=== PATIENT | female | born 1990 | race Caucasian/White ===

== ENCOUNTER 2019-11-01 10:37 | Outpatient (RCR) | payer OTHER, SELFPAY ==
[2019-11-02 19:55] LABS: CMV IgG Antibody <0.60 U/mL (<0.60)
[2019-11-03] MEDS: RHO(D) IMMUNE GLOBULIN 300 MCG SYRINGE IM (15:02)
[2019-11-03 17:15] LABS: Toxoplasma IgG Antibody <7.20 IU/mL (<7.20)
[2019-11-03 17:22] LABS: Toxoplasma IgM Antibody <8.00 AU/mL (<8.00)
[2019-11-04 16:54] LABS: CMV IgM Antibody <30.00 AU/mL (<30.00)
== END 2019-11-03 10:38 | disposition home or self-care (01) ==
LOC: ANHLAB 10:37
PROVIDERS: Visit Provider Obstetrics & Gynecology Obstetrics
DX: Z29.13 Encounter for prophylactic Rho(D) immune globulin (principal); O36.5930 Maternal care for other known or suspected poor fetal growth, third trimester, not applicable or unspecified; Z3A.00 Weeks of gestation of pregnancy not specified
CPT/HCPCS: 36415; 85461; 86644; 86645; 86777; 86850; 86900; 86901; 90384; 96372; J2790

== ENCOUNTER 2022-09-05 15:17 | Emergency (ER) | payer OTHER, SELFPAY ==
[2022-09-05 15:40] VITALS: BP 100/75; PULSE 87; RESP 19; TEMP 36.7; O2SAT 100
--- NOTE | 2022-09-05 15:59 | PC.NURSE ---
pt states she began having pain in both of the arches of her foot and some heel swelling. seen at [place] and dx with plantar fascitis. now noting pain, swelling, itching and rash to left hand. states meds from [place] are not helping and feet pain continues
--- NOTE | 2022-09-05 16:18 | ED.EXTPRO ---
HPI - Extremity Problem General Chief complaint: Extremity Problem,Nontraumatic Stated complaint: Bilateral Foot Pain and left hand itching and swel Time Seen by Provider: 09/05/22 15:57 Source: patient Mode of arrival: ambulatory Limitations: no limitations History of Present Illness HPI Narrative: This is a 32 year old female that presents to the ER for bilateral heel pain. Ongoing over the last couple of days. She was seen at [facility] and diagnosed with plantar fasciitis. Reports today she started to note some discomfort in her hands as well as a rash on her hands. Reports the pain is burning in nature. Denies fever, sore throat, or arthralgias. Related Data Home Medications Medication Instructions Recorded Confirmed No Home Medications 09/05/22 09/05/22 Allergies Allergy/AdvReac Type Severity Reaction Status Date / Time amoxicillin Allergy Swelling Verified 09/05/22 15:56 of Lip/Tongue/Throat Review of Systems Review of Systems: CONSTITUTIONAL: Denies fever ENT: Denies rhinorrhea, congestion, sore throat SKIN: Reports rash and itching. MUSCULOSKELETAL: Denies joint pain, or myalgia. NEUROLOGIC: Denies numbness, or weakness. All systems reviewed & are unremarkable except as noted in HPI and below PMFSH Past Medical History Medical History (Updated 09/05/22 @ 18:55 by Inna Reno PA-C) No active medical problems Social History Social History (Updated 09/05/22 @ 18:29 by Inna Reno PA-C) Substance use: never Exam Narrative: GENERAL: Well-appearing, well-nourished, and in no acute distress. HEAD: Normocephalic, atraumatic. EYES: EOMI. ENT: Nares clear, no rhinorrhea or epistaxis. Mucous membranes moist. Oropharynx without tonsillar hypertrophy exudate or other lesions. NECK: Supple. No adenopathy or masses. CHEST: Clear to auscultation. No respiratory distress. No wheezes rales or rhonchi HEART: Regular rate and rhythm. No murmur heard. Normal peripheral pulses. EXTREMITIES: Normal range of motion. No edema, erythema. Normal DP pulses. Normal sensation SKIN: Warm, dry. Macular rash present on the palmar aspect of the hands NEURO: No focal deficits. Alert and oriented x3. PSYCH: Normal mood and affect Course Vital Signs Vital signs: Vital Signs Temperature 98.1 F 02/25/23 15:40 Pulse Rate 87 09/05/22 15:40 Respiratory Rate 19 09/05/22 15:40 Blood Pressure 100/75 09/05/22 15:40 Pulse Oximetry 100 09/05/22 15:40 Oxygen Delivery Room Air 09/05/22 15:40 Temperature 98.1 F 09/05/22 15:40 Pulse Rate 87 09/05/22 15:40 Respiratory Rate 19 09/05/22 15:40 Blood Pressure 100/75 09/05/22 15:40 Pulse Oximetry 100 09/05/22 15:40 Oxygen Delivery Room Air 09/05/22 15:40 MDM - Extremity (Nontraumatic) MDM Narrative Medical decision making narrative: Patient presents to the ER for a rash present on her palms that she noted today. Reports the area is painful, burning and itching. She also reports pain and burning in her heels bilaterally. No rash noted on the feet. No recent injuries. Patient is neurologically intact. She is afebrile and nontoxic appearing. CBC shows leukocytosis to 13. Patient did recently finish a steroid. Inflammatory markers are not elevated. Metabolic panel is without acute findings. Monoscreen is negative. Patient denies any concerns for STDs. She was updated on workup. Instructed on use of antihistamines for itching. She is to follow up with her PCP. She was given warnings to return to the ER. Instructed to follow up with Dermatology if rash persists Differential Diagnosis Differential diagnosis: Likely cellulitis and other (contact dermatitis, hand foot and mouth disease, syphilis) Lab Data Attestation: I reviewed the patient's lab results. 09/05/22 16:28 09/05/22 16:28 Labs: Lab Results 09/05/22 09/05/22 09/05/22 Range/Units 16:28 16:28 16:28 WBC 13.0 H (4.5-10.0) K/mm3 R
[2022-09-05 16:34] LABS: Basophils Absolute Auto 0.1 K/mm3 (0.0-0.1); Basophils Percent Auto 0.6 % (0.2-1.2); Eosinophils Absolute Auto 0.2 K/mm3 (0-0.3); Eosinophils Percent Auto 1.4 % (0-4.4); Hematocrit 43.7 % (37.0-47.0); Immature Granulocyte Absolute 0.09 K/mm3 (0.00-0.031); Immature Granulocyte Percent A 0.7 % (0-0.5); Lymphocytes Absolute Auto 3.48 K/mm3 (0.9-3.2); Lymphocytes Percent Auto 26.8 % (18.3-44.2); Mean Corpuscular Hemoglobin 27.8 pg (26-34); Mean Corpuscular Volume 86.7 fl (80-100); Mean Platelet Volume 9.5 fl (7.4-10.4); Monocytes Percent Auto 7.8 % (2.6-8.5); Neutrophils Absolute Auto 8.2 K/mm3 (1.3-6.7); Neutrophils Percent Auto 62.7 % (45.5-73.1); Platelet Count Result 375 k/mm3 (150-375); Red Blood Count 5.04 M/mm3 (4.2-5.4); Red Cell Distribution Width 14.8 % (11.5-14.5)
[2022-09-05 16:44] LABS: Prothrombin Time 13.1 Seconds (11.1-14.7)
[2022-09-05 16:45] LABS: Partial Thromboplastin Time 29.3 SECONDS (22.3-36.8)
[2022-09-05 16:47] LABS: Alanine Aminotransferase 22 U/L (6-35); Albumin Level 4.6 g/dL (3.5-5.1); Alkaline Phosphatase 91 U/L (38-126); Anion Gap 2 mmol/L (8-16); Aspartate Amino Transferase 24 U/L (14-36); Bilirubin,Total 0.6 mg/dL (0.2-1.3); Blood Urea Nitrogen 13 mg/dL (7-17); Calcium 9.1 mg/dL (8.4-10.2); Carbon Dioxide 30 mmol/L (22-30); Chloride 101 mmol/L (98-107); Estimated Glomerular Filt Rate > 60; Glucose 84 mg/dL (65-110); Potassium 4.4 mmol/L (3.4-5.0); Sodium 133 mmol/L (137-145)
[2022-09-05 17:41] LABS: Erythrocyte Sedimentation Rate 9 mm/hr (0-20)
[2022-09-05 18:22] LABS: Monoscreen Negative (Negative); Positive Monotest Control Positive (Positive)
[2022-09-05 18:23] LABS: Negative Monotest Control Negative (Negative)
== END 2022-09-05 19:03 | disposition home or self-care (01) ==
PROVIDERS: Emergency Provider Physician Assistant; PCP Physician Assistant
DX: R21 Rash and other nonspecific skin eruption (principal)
CPT/HCPCS: 36415; 80053; 85025; 85610; 85652; 85730; 86140; 86308; 99283

== ENCOUNTER 2024-11-21 19:20 | Emergency (ER) | payer OTHER, SELFPAY ==
--- NOTE | ~2024-11-21 | US_ITS ---
EXAMINATION: US OB <=14 wk fetus w TV INDICATION: 6 weeks, lower abd pain, RLQ TECHNIQUE: Sonography of the pelvis was performed by transabdominal and transvaginal techniques. COMPARISON: None. RESULT: Uterus: 9.4 x 7.4 x 9.5 cm. Anteverted. Homogenous myometrium. Intrauterine gestational sac: Single present. 0.4 cm . Embryo: Single present. [place] rump length: 0.45 cm, corresponding gestational age 6 weeks, 1 days. Gestational heart rate: present 106 bpm. Subgestational hematoma: Absent . Right ovary: 3.5 x 1.1 x 1.8 cm. Vascular flow is present. No adnexal mass. Left ovary: 4.0 x 1.7 x 2.5 cm. Vascular flow is present. No adnexal mass. Pelvis free fluid: None. IMPRESSION: Single, live intrauterine gestation. Borderline bradycardia of 106 bpm. Recommend close clinical and sonographic follow-up. Estimated Gestational Age: 6 weeks, 1 days by crown rump length. DANIEL by ultrasound 07/16/2025. Reviewed, dictated and finalized at location K. IMPRESSION: Single, live intrauterine gestation. Borderline bradycardia of 106 bpm. Recommend close clinical and sonograph ic follow-up. Estimated Gestational Age: 6 weeks, 1 days by crown rump length. DANIEL by ultras ound 07/16/2025.
[2024-11-21 19:23] VITALS: BP 124/68; PULSE 75; RESP 14; TEMP 36.7; O2SAT 100
--- OUTSIDE RECORDS SUMMARY | 2024-11-21 19:23 | XMS_ITS | Data Portability ---
Author Organization [facility], [place] Address [address] [place] [address] Care Team Providers Care Histology Supervisor Name Role Phone ISABELLA ARAYA Primary Care Provider Assessment Encounter Date Assessment Date Assessment LastModified by Organization Details LastModified Time 08/24/2023 08/24/2023 Annual gynecological exam performed. Patient will come back in a year unless there are new symptoms. Not available 08/24/2023 17:19:21 Plan of Treatment Reminders Order Date Submit Date Provider Last Modified By Organization Details Last Modified Time Details Appointments U/S OB SNEAK PEAK 2024 01:00P M ULTRASOUND Not available Not available Not available OB SCREEN 2024 01:30P M Mitzi Gary CNM Not available Not available Not available Lab None recorde d. Referral None recorde d. Procedures None recorde d. Surgeries None recorde d. Imaging None recorde d. Medication Orders None recorde d. Patient TargetsNo targets recorded. Patient InstructionsNo instructions recorded. Reason for Referral None Reported. Results Created Date Observation Date Name Description Value Unit Range Abnormal Flag Note LastModifiedBy Organization Detail LastModifiedTime 08/24/19 24 08/24/2023 IMAGE GUIDE D PAP AND HPV REGAR DLESS image guided Pap, HPV regardless of Pap result SEE RESULT S BELOW CASE REPOR T: Cytol ogy Gynec ologi cesar Repor t Case: [id number] Autho maggie brantley Provi lissette: Yves Salazar Colle cted: 08/24 0820 DEBT AND BUDGET COUNSELOR Order ing Locat ion: [place] [facility] Recei cindi: 08/26 0108 First Scree n: Chapin Preciado, CT Speci men: Scree july Pap - Image d, Cervi x STATE MENT OF ADEQU ACY: Satis facto ry for evalu ation Trans forma tion zone compo nent prese nt FINAL DIAGN OSIS: Negat cameron for Intra epith elial Lesio n or Kathy marcum (NIL) . Elect lora morgan gabriella d by Chapin Preciado, CT on 2023 at 8:51 AM ----- ----- ----- ----- ----- ----- ----- ----- ----- ----- ----- ----- ----- ----- ----- ----- ----- ---- HPV RESUL TS: HPV mRNA E6/E7 : No HPV mRNA Detec sharan NOTE: This high risk HPV mRNA assay detec ts fourt een high- risk HPV types (16, 18, 31, 33, 35, 39, 45, 51, 52, 56, 58, 59, 66, 68) witho ut diffe renti ation . COMME NT: This speci men was revie wed by a Cytot echno logis t and/o r Patho logis t (as indic ated in this repor t) after evalu ation using the Thinp rep Imagi ng Syste m. CLINI CESAR INFOR MATIO N: Menst rual Statu s: LMP (if appli cable ): Clini cesar Histo ry/Pr eviou s Pap: Type of Neopl yovany (if appli cable ): Signi fican t Clini cesar Findi ngs: Other Histo ry: Hormo marlys (if appli cable ): PAP EDUCA BRIAN L NOTE: The Pap Test is a scree july test with an inher ent false negat cameron rate. Liqui d-bas ed sampl ing may decre ase, but will not elimi juan, false negat cameron resul ts. A negat cameron resul t does not precl ude the prese nce and/o r devel opmen t of disea se, since the prese nce of abnor mal cells in the sampl e depen ds on the locat ion of the lesio n and sampl ing techn ique. Isaiah nued regul ar scree july is the best metho d of cance r preve ntion . If repor sharan cytol ogic findi ng do not corre late with physi cesar and/o r histo rical findi ngs, furth er inves tigat ion is recom shawna d, as clini lidya cuellar nted. Not Available [facility] (Lab) [address], [place], [address], 08/31/2023 09:54:20 Result Notes None recorded. Medical Equipment None Reported. Allergies Allergen ID Allergen Name Allergen Category Reaction Reaction Severity Criticality Documentation Date Start Date Code Code System Note Provider Name and Address Organization Details Recorded Time 13983 amoxicill in medicatio n anaphylax is Not available high 08/24/2023 723 RxNorm Mallorie castillo, [facility]- [address], [place], [address] [place] [address], [facility] 4 17:45:51 Medications Name Sig Start Date Stop Date Status Note LastModified by Organization Details LastModified Time methocarbam ol 500 mg tablet TAKE 2 TABLETS BY MOUTH FOUR TIMES DAILY active Not Available Not Available No t Available ketoconazol e 2 % shampoo APPLY TO THE AFFECTED AREAS LATHER LEAVE IN PLACE FOR 5 MINUTES THEN RINSE BY TOPICAL ROUTE X 3 DAYS active Not Available Not Available No t Available clindamycin HCl 300 mg capsule TAKE 1 CAPSULE BY MOUTH THREE TIMES DAILY active Not Available Not Available No t Available ibuprofen 800 mg tablet Take 1 tablet 3 times a day by oral route. active Not Available Not Available No t Available methylpredn isolone 4 mg tablets in a dose pack FOLLOW PACKAGE DIRECTION S active Not Available Not Available No t Available Annovera 0.15 mg-0.013 mg/24 hr vaginal ring 08/24 completed Not Available Not Available Not Available Vitals Date Recorded Body height Body mass index (BMI) Body weight Systolic blood pressure Diastolic blood pressure Provider Name and Address Organization Details Last Updated DateTime 08/24/2023 170.18 cm 22.6 kg/m2 03776.3 g 105 mm[Hg] 70 mm[Hg] Nicolasa Kike [facility] 17:35:51 Social History Question Answer Notes LastModified by Organizat ion Details LastModified Time Tobacco Smoking Status Current Every Day Smoker Nicolasa Stokes null, [facility] 08/24/2023 17:27:19 Are You Blind Or Do You Have Difficulty Seeing? No Information n ot available 08/24/2023 In The 14 Days Before Symptom Onset, Have You Had Close Contact With A Laboratory-confirm ed COVID-19 While That Case Was Ill? No Information n ot available 08/24/2023 In The 14 Days Before Symptom Onset, Have You Had Close Contact With A Person Who Is Under Investigation For COVID-19 While That Person Was Ill? No Information not available 08/24/2023 Have You Been To An Area Known To Be High Risk For COVID-19? No Information not available 08/24/2023 Are You Deaf Or Do You Have Serious Difficulty Hearing? No Information not available 08/24/2023 What Type Of Diet Are You Following? REGULAR Information n ot available 08/24/2023 What Is The Highest Grade Or Level Of School You Have Completed Or The Highest Degree You Have Received? [id number] Information not available 08/24/2023 Are There Any Guns Present In Your Home? No Information not available 08/24/2023 Do You Use Protection During Sex? No Information not available 08/24/2023 Do You Use Your Seat Belt Or Car Seat Routinely? Yes Information not available 08/24/2023 Are You Sexually Active? Yes Information not available 08/24/2023 Do You Have Smoke And Carbon Monoxide Detectors In Your Home? Yes Information not available 08/24/2023 How Much Tobacco Do You Smoke? 0.5 PPD Information not available 08/24/2023 Do You Use Sunscreen Routinely? Yes Information not available 08/24/2023 Sex: Unknown Functional Status Question Answer Note LastModified by Organizat ion Details LastModified Time Do you use any illicit or recreational drugs? No Information not available 08/24/2023 What is your level of alcohol consumption? None Information not available 08/24/2023 Are you currently employed? No Information not available 08/24/2023 Do you have difficulty walking or climbing stairs? No Information not available 08/24/2023 Are you able to walk? YESWOREST Information not available 08/24/2023 Are you able to care for yourself? Yes Information n ot available 08/24/2023 Do you have difficulty dressing or bathing? No Information not available 08/24/2023 What is your exercise level? None Information not available 08/24/2023 Mental Status Question Answer Note LastModified by Organization D etails LastModified Time Do you feel stressed (tense, restless, nervous, or anxious, or unable to sleep at night)? [id number] Information not available 08/24/2023 Family History Relationship Description Onset Age of this Age Resolved Age Notes LastModified by Organization Details LastModified Time Mother Anemia Not available 17:23:41 Mother Diabetes mellitus Not available 2023 17:24:19 Sister Anemia Not available 17:23:41 Sister Hypercholest erolemia Not available 2023 17:24:31 Sister Polycystic ovary syndrome Not available 2023 17:25:25 Paternal Grandmother Malignant tumor of breast Not available 2023 17:23:55 Father Diabetes mellitus Not available 2023 17:24:19 Father Hypertensive disorder Not available 2023 17:24:52 Paternal Grandfather Diabetes mellitus Not available 2023 17:24:19 Medical History Condition Response Allergies (Food, seasonal, environmental ) N Other N Drug/Latex Allergies/Reactions N Blood Transfusion N Breast Cancer N Dermatologic Disorders N Lung Disease N Defects or Inherited Disease N Breast Problem N Gestational Diabetes N Hematologic disorders N Anesthesia Complications N History of STI N Deep Vein Thrombosis N Polycystic ovary syndrome Y Anxiety Disorder N Autoimmune disease N Arthritis N Polyps N Infertility Y Acid Reflux (GERD) N History of abnormal pap N Cancer N Varicosities N Stroke N Neurologic/Epilepsy N Endometriosis N High Cholesterol Y Fibromyalgia N Headaches N Kidney Disease N Heart Problems N Thyroid Problems N Kidney or Bladder Problems N GI Problems N Eating Disorder N Anemia Y Art (IVF or FET) N Psychiatric Illness N Ovarian Cancer N Diabetes N Pulmonary (TB, Asthma) N Hepatitis/Liver Disease N No Past Medical History N Eczema N Urinary Tract Infection N Abuse/Domestic Violence N Asthma N Trauma/Violence N Depression/ depression N Heart Disease N Pre-Eclampsia N Hypertension N Osteoporosis N Thrombophilias N Gynecological History Statement/Question Response Abnormal Pap N Flow Heavy Date of LMP 07/27/2023 On BCP's at Conception? N Was last menstrual period normal Y STIs/STDs N HPV Vaccine Y Duration of Flow (days) 7 Current Control Method None Age at First Child 26 Are cycles usually normal Y Frequency of Cycle (Q days) 27 Sexually Active? Y Menses Monthly Y Age of first menstrual cycle 12 Date of Last Pap Smear Sexual Problems? N LMP Definite Obstetrics History GPAL:G 2 P 0 0 0 2 Type Value Living 2 Total 2 Past Encounters Encounter ID Performer Location Encounter Start Date Encounter Closed Date Diagnosis/Indication Diagnosis SNOMED-CT Code Diagnosis ICD10 Code Diagnosis Note [id number] Mallorie Ramos , [facility] [address] [address] 08/24/2023 16:43:08 08/24/2023 18:22:45 Gynecologic examination 08672298 Z01.419 Take Calcium with Vitamin D 1200mg daily if not receiving in daily diet. It is strongly advised to have an annual flu shot and up can obtain at most pharmacies . If you have not had a TDap shot in the last 10 years you should obtain one as well. Discussed with patient & provided with informatio n regarding Gardisil vaccine to prevent the 4 strains for HPV that cause cervical cancer if under age 26. Encourage safe sexual practices, to use condoms and limit partners if not already in a monogamous relationsh ip. Do monthly self breast exams. Have mammogram yearly or every other year depending on family history. BRCA testing is now available for patients with strong genetic history of female cancer. If interested contact the office. Engage in daily exercise of low impact aerobic exercise 45-60 minutes 4-5 times weekly. Avoid tobacco and illicit drugs as well as using moderation with alcohol intake less than 1-2 8 oz beverages daily. This lifestyle behavior pattern will lead to less health conditions and longer life span. If BMI greater than 25 weight watchers or dietary consult advised. Patient received above instructio ns, and questions have been answered. If you have any questions please call or respond to this email. Patient was made aware of the patient portal and may obtain a paper copy of today's plan if desired. Pap/hpv opts to sent STD Screen declined Genetic Screen discussed Colon Screen na Dexa Screen na Routine Labs PCP Menorrhagia [id number] N9 2.0 Discussed all control options and pt would like mirena IUD. I have discussed in detail all risks and benefits including risk of infection and perforatio n. She understand s she will need to contact office with next menses or may abstain, complete serum HCG day before placement, if neg can have IUD placed next day. Aware of need to verify with insurance device coverage. Literature given. All questions answered to patient satisfacti on. Discussed Endometria l ablation-r isks/benef its and possible side effects including getting it done earlier than 10yrs from Menopause. She would like to consider all these options.Sh e has failed BCP/Nuvari ng/Annover a/Patch/Do es not want nexplanon or Depo.Never trial'd LystedaHx of infertilit y and has 2 childrenNo t planning on more childrenHx of anemia but only needing supplement s now not transfusio ns; feels it's well managed. Will let us what options she wants to pursue.IF chooses to hear more about ablation will need MD consult. Health Concerns Section Related Observation LastModified by Organization Detai ls LastModified Time None Recorded Concern Status LastModified by Organization Details LastModified Time None Recorded Advance Directives Directive None Recorded Payers Encounter Date Sequence Insurance Name Policy Number Policy Hicks Covered Member ID Hicks Member ID Guarantor Name 08/24/2023 1 [facility] (MEDICAID HMO) [id number] Laurel Will [id number] Laurel Will Notes Date Note Type Note Provider Name and Address Organization Details Recorded Time 08/24/2023 text/html Annual GYNReport ed bypatient.Menstrua l cycle:Menorrhagia Urinary symptoms:No hematuria; No incontinence Vulva:No genital lesion Vagina:Normal vaginal discharge Breast:No breast pain; No breast lump; No nipple discharge Current Contraception:Dexter h control not practiced (Hx of infertility) Sexual complaints:No sexual complaints; No pain during intercourse; Normal libido Menopausal Symptoms:No menopausal symptoms; Normal vaginal lubrication Psychological symptoms:No depression; No anxiety; No PMDD Preventive measures:Encourage self breast examination; Encourage regular exercise; Encourage no tobacco use; Encourage regular mammograms starting age 40; Followed with yearly pap smears Mallorie Ramos [facility]- [address], [place], [address], [facility] 08/24/2023 18:20:15 OBGyn Episode Ob Episode Information Episode Created Date Number of Fetuses Patient Bloodtype Patient rh Status Prepregnancy Weight lbs Domestic Partner Domestic Partner Phone Father Name Publicity Director Status 08/24/19 24 1 CLOSED Fetus Data First Name Last Name Admitted to NICU Weight (g) Sex Living Outcome Pediatric Complications Fetus ID Race Codes Race Delivery Type [phone] Full Term [id number] Vaginal Delivery Rufino Calculation Initial Rufino Date Initial Exam Date Initial Exam Provider Initial Ultrasound Date Last Menstrual Period Date Ultra Sound Weeks Gestation 0 Eighteen To Twenty Week Rufino Update Ultra Sound Date Fundal Height At Umbil Quickening Date Ultra Sound Latest Weeks Gestation Final Rufino Confirmed By Final Rufino Confirmed Date Final Rufino Date Ultra Sound Latest Days Gestation 0 0 Menstrual History Last Menstrual Date Menses Monthly On Bcp Conception Prior Menses Frequency Hcg Plus Date Menarche Onset Age Delivery Information Delivery Date Delivery Type Labor Anesthesia Weeks Gestation Incision Type Labor Labor Length Hrs Delivered By Post Complications Tubal Sterilization Discharge Date Comments 0 Discharge Information Feeding Method Contraceptive Method Maternal HG B and HCT Levels Ob Episode Information Episode Created Date Number of Fetuses Patient Bloodtype Patient rh Status Prepregnancy Weight lbs Domestic Partner Domestic Partner Phone Father Name Publicity Director Status 08/24/19 24 1 CLOSED Fetus Data First Name Last Name Admitted to NICU Weight (g) Sex Living Outcome Pediatric Complications Fetus ID Race Codes Race Delivery Type Full Term [id number] Vaginal Delivery Rufino Calculation Initial Rufino Date Initial Exam Date Initial Exam Provider Initial Ultrasound Date Last Menstrual Period Date Ultra Sound Weeks Gestation 0 Eighteen To Twenty Week Rufino Update Ultra Sound Date Fundal Height At Umbil Quickening Date Ultra Sound Latest Weeks Gestation Final Rufino Confirmed By Final Rufino Confirmed Date Final Rufino Date Ultra Sound Latest Days Gestation 0 0 Menstrual History Last Menstrual Date Menses Monthly On Bcp Conception Prior Menses Frequency Hcg Plus Date Menarche Onset Age Delivery Information Delivery Date Delivery Type Labor Anesthesia Weeks Gestation Incision Type Labor Labor Length Hrs Delivered By Post Complications Tubal Sterilization Discharge Date Comments 6 40 Discharge Information Feeding Method Contraceptive Method Maternal HG B and HCT Levels
--- OUTSIDE RECORDS SUMMARY | 2024-11-21 19:23 | XMS_ITS | Data Portability ---
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 Lab PPD (purifie d protein derivati ve), skin test 2024 025 JONATAN In-Office Order, Internal Use Only DO Not Attach Compendium DO Not Attach Compendium, Do Not Delete/merge, [id number] 5 12:25:51 PPD (purifie d protein derivati ve), skin test 2023 024 JONATAN In-Office Order, Internal Use Only DO Not Attach Compendium DO Not Attach Compendium, Do Not Delete/merge, [id number] 4 14:47:46 TSH + free T4, serum 2023 024 JONATAN WHITING, [address], [address], [place], [address], 4 08:22:42 magnesiu m, serum or plasma 2023 024 JONATAN WHITING, [address], [address], [place], [address], 4 06:16:16 CBC w/ auto diff 2023 024 JONATAN [facility], [address] [facility], [address], [place], [address], 4 06:16:17 CMP, serum or plasma 2023 024 JONATAN [facility], [address] [facility], [address], [place], [address], 4 06:16:15 lipid panel, serum 2023 024 NIWOT [facility], [address] [facility], [address], [place], [address], 4 06:16:15 PPD (purifie d protein derivati ve), skin test 2021 022 JONATAN In-Office Order, Internal Use Only DO Not Attach Compendium DO Not Attach Compendium, Do Not Delete/merge, [id number] 2 15:26:09 Referral cardiolo gist referral 2023 024 JONATAN Morales MD, [address] [facility] [address], [place], [address], 4 17:40:12 Procedures None recorded . Surgeries None recorded . Imaging electroc ardiogra m 2023 024 [facility] ([facility]), [address] [facility], [place], [address], 4 12:09:12 US, doppler, arterial - Recent skin eruption to hands and changes to color of skin of a few fingerti ps bilatera lly (blue), temperat ure change, and pain to the fingerti ps bilatera lly. 2022 023 [facility] ([facility]), [address], [place], [address], 3 11:26:25 Medication Orders tubercul in PPD 5 tub. unit/0.1 mL intrader mal injectio n solution 2024 025 [email or web address] [id number], [address], [place], [place], [id number], 5 12:22:42 tubercul in PPD 5 tub. unit/0.1 mL intrader mal injectio n solution 2023 024 [email or web address] Not available 4 12:57:05 ketocona zole 2 % shampoo 2022 023 [facility] #[id number], [address], [place], [place], [id number], 4 12:08:36 ibuprofe n 800 mg tablet 2022 023 JONATAN [facility] #[id number], [address] , [place], [place], [id number], 3 12:51:08 Annovera 0.15 mg-0.013 mg/24 hr vaginal ring 2022 023 [email or web address] [facility], [address] [place] [address], [address], 4 12:08:17 Tubersol 5 tub. unit/0.1 mL intrader mal injectio n solution 2021 022 [email or web address] Not available 3 14:49:43 Patient TargetsNo targets recorded. Patient Instructions Encounter Date Encounter Id Patient Instructions Last Modified By Organization Details Last Modified Time 09/09/2022 [id number] painful menstrua l cramps: care instructions [email or web address] Not available 09/09/2022 12:46:06 CINDY Dolan Discussed with CHRISTIAN [email or web address] Not available 09/09/2022 14:17:20 09/10/2022 [id number] rash: care instructions Not available 09/10/2022 21:34:42 ringworm: care instructions Not available 09/10/2022 21:34:42 08/17/2023 [id number] learning about tuberculosis (TB) [email or web address] Not available 08/17/2023 12:39:59 08/15/2024 [id number] learning about tuberculosis (TB) [email or web address] Not available 08/15/2024 12:20:03 Reason for Referral Supervisor Blasting Referral for In termittent palpitations Referring Physician: Isaac Tenorio, Family Medicine, Encounter Date: 08/17/2023 Results Created Date Observation Date Name Description Value Unit Range Abnormal Flag Note LastModifiedBy Organization Detail LastModifiedTime 05/06/20 22 05/06/2022 PPD (jessica fied prote in deriv ative ), skin test Result Negati ve Not Available In-Office Order Internal Use Only DO Not Attach Compendium DO Not Attach Compendium, Do Not Delete/merge, [id number] 05/04/2022 12:36:03 03/05/20 23 03/06/2023 VARIC TRISH ZOSTE R ABS, IGG/I GM varicella zoster IgG 2087 index immune >165 Negat cameron <135 Equiv ocal 135 - 165 Posit cameron >165 A posit cameron resul t gener ally indic ates expos ure to the patho gen or admin istra tion of speci fic immun oglob ulins , but it is not indic ation of activ e infec tion or stage of disea se. Not Available [facility] ([facility]) [address] [facility], [place], [address], 03/08/2023 15:09:36 03/05/20 23 03/08/2023 VARIC TRISH ZOSTE R ABS, IGG/I GM varicella-zo ster Ab, IgM <0.91 index 0.00-0 .90 Negat cameron <0.91 Borde rline 0.91 - 1.09 Posit cameron >1.09 Not Available [facility] ([facility]) [address] [place], [address], 03/08/2023 15:09:36 03/05/20 23 03/06/2023 MEASL ES/MU MPS/R UBELL A IMMUN ITY rubella antibodies, IgG 2.39 index immune >0.99 Non-i mmune <0.90 Equiv ocal 0.90 - 0.99 Immun e >0.99 Not Available [facility] ([facility]) [address] [place], [address], 03/08/2023 15:09:37 03/05/20 23 03/06/2023 MEASL ES/MU MPS/R UBELL A IMMUN ITY measles antibodies, IgG 298.0 AU/mL immune >16.4 Negat cameron <13.5 Equiv ocal 13.5 - 16.4 Posit cameron >16.4 Prese nce of antib odies to Rubeo la is presu mptiv e evide nce of immun ity excep t when acute infec tion is suspe cted. Not Available [facility] ([facility]) [address] [facility], [place], [address], 03/08/2023 15:09:37 03/05/20 23 03/06/2023 MEASL ES/MU MPS/R UBELL A IMMUN ITY mumps abs, IgG >300.0 AU/mL immune >10.9 Negat cameron <9.0 Equiv ocal 9.0 - 10.9 Posit cameron >10.9 A posit cameron resul t gener ally indic ates past expos ure to Mumps virus or previ ous vacci natio n. Not Available [facility] ([facility]) [address] [place], [address], 03/08/2023 15:09:37 08/19/19 24 08/19/2023 PPD (jessica fied prote in deriv ative ), skin test Result Negati ve Not Available In-Office Order Internal Use Only DO Not Attach Compendium DO Not Attach Compendium, Do Not Delete/merge, [id number] 08/17/2023 12:28:29 08/23/19 24 08/23/2023 LIPID PANEL cholesterol, total 181 mg/dL 100-[address] [facility] [address] [place] [address], [address], 08/24/2023 06:16:15 08/23/19 24 08/23/2023 LIPID PANEL triglyceride s 81 mg/dL 0-149 Not Available [facility] [address] [place] [address], [address], 08/24/2023 06:16:15 08/23/19 24 08/23/2023 LIPID PANEL HDL cholesterol 56 mg/dL 40-999 Not Available [facility] Department [address] [place] [address], [address], 08/24/2023 06:16:15 08/23/19 24 08/23/2023 LIPID PANEL VLDL cholesterol cesar 16 mg/dL 5-40 Not Available [facility] [address] [place] [address], [address], 08/24/2023 06:16:15 08/23/19 24 08/23/2023 LIPID PANEL LDL chol calc ([facility]) 120 mg/dL 0-99 above high normal Not Available [facility] [address] [place] [address], [address], 08/24/2023 06:16:15 08/23/19 24 08/23/2023 COMP. METAB OLIC PANEL (14) glucose 79 mg/dL 70-[address] [facility] [address] [place] [address], [address], 08/24/2023 06:16:15 08/23/19 24 08/23/2023 COMP. METAB OLIC PANEL (14) BUN 13 mg/dL 6-[address] [facility] [address] [place] [address], [address], 08/24/2023 06:16:15 08/23/19 24 08/23/2023 COMP. METAB OLIC PANEL (14) creatinine 1.02 mg/dL 0.76-[address] [facility] [address] [place] [address], [address], 08/24/2023 06:16:15 08/23/19 24 08/23/2023 COMP. METAB OLIC PANEL (14) eGFR 74 >=60 Units for eGFR value s are mL/mi n/1.7 3 The eGFR Calcu latio n has not been valid ated for patie nts under the age of 18. If test resul ts are displ ayed for a patie nt under the age of 18, disre mario that value . Not Available [facility] [address] [place] [address], [address], 08/24/2023 06:16:15 08/23/19 24 08/23/2023 COMP. METAB OLIC PANEL (14) BUN/creatini ne ratio 13 9-23 Not Available [facility] [address] [place] [address], [address], 08/24/2023 06:16:15 08/23/19 24 08/23/2023 COMP. METAB OLIC PANEL (14) sodium 140 mmol/ L 134-[address] [facility] [address] [place] [address], [address], 08/24/2023 06:16:15 08/23/19 24 08/23/2023 COMP. METAB OLIC PANEL (14) potassium 4.6 mmol/ L 3.5-5. [address] [facility] [address] [place] [address], [address], 08/24/2023 06:16:15 08/23/19 24 08/23/2023 COMP. METAB OLIC PANEL (14) chloride 104 mmol/ L 96-[address] [facility] [address] [place], [address], 08/24/2023 06:16:15 08/23/19 24 08/23/2023 COMP. METAB OLIC PANEL (14) carbon dioxide, total 24 mmol/ L 20-[address] [facility] [address] [place], [address], 08/24/2023 06:16:15 08/23/19 24 08/23/2023 COMP. METAB OLIC PANEL (14) calcium 9.3 mg/dL 8.7-[address] [facility] [address] [place], [address], 08/24/2023 06:16:15 08/23/19 24 08/23/2023 COMP. METAB OLIC PANEL (14) protein, total 7.0 g/dL 6.0-8. [address] [facility] [address] [place], [address], 08/24/2023 06:16:15 08/23/19 24 08/23/2023 COMP. METAB OLIC PANEL (14) albumin 4.4 g/dL 3.9-4. [address] [facility] [address] [place], [address], 08/24/2023 06:16:15 08/23/19 24 08/23/2023 COMP. METAB OLIC PANEL (14) globulin, total 2.6 g/dL 1.5-4. [address] [facility] [address] [place], [address], 08/24/2023 06:16:15 08/23/19 24 08/23/2023 COMP. METAB OLIC PANEL (14) A/G ratio 2.0 1.2-2. [address] [facility] [address] [place] [address], [address], 08/24/2023 06:16:15 08/23/19 24 08/23/2023 COMP. METAB OLIC PANEL (14) bilirubin, total 0.4 mg/dL 0.0-1. [address] [facility] [address] [place] [address], [address], 08/24/2023 06:16:15 08/23/19 24 08/23/2023 COMP. METAB OLIC PANEL (14) alkaline phosphatase 81 IU/L 44-121 Not Available [facility] Department [address] [place] [address], [address], 08/24/2023 06:16:15 08/23/19 24 08/23/2023 COMP. METAB OLIC PANEL (14) AST (SGOT) 16 IU/L 0-40 Not Available [facility] Department [address] [place] [address], [address], 08/24/2023 06:16:15 08/23/19 24 08/23/2023 COMP. METAB OLIC PANEL (14) ALT (SGPT) 11 IU/L 0-32 Not Available [facility] Department [address] [place] [address], [address], 08/24/2023 06:16:15 08/23/19 24 08/23/2023 MAGNE SIUM magnesium 2.0 mg/L 1.6-2. [address] [facility] [address] [place] [address], [address], 08/24/2023 06:16:16 08/23/19 24 08/23/2023 CBC WITH DIFFE RENTI AL/PL ATELE T WBC 8.7 x10e3 /uL 3.4-[address] [facility] [address] [place] [address], [address], 08/24/2023 06:16:17 08/23/19 24 08/23/2023 CBC WITH DIFFE RENTI AL/PL ATELE T RBC 4.59 x10e6 /uL 3.77-5 .28 Not Available [facility] [address] [place], [address], 08/24/2023 06:16:17 08/23/19 24 08/23/2023 CBC WITH DIFFE RENTI AL/PL ATELE T hemoglobin 13.0 g/dL 11.1-[address] [facility] [address] [place], [address], 08/24/2023 06:16:17 08/23/19 24 08/23/2023 CBC WITH DIFFE RENTI AL/PL ATELE T hematocrit 40.4 % 34.0-[address] [facility] [address] [place], [address], 08/24/2023 06:16:17 08/23/19 24 08/23/2023 CBC WITH DIFFE RENTI AL/PL ATELE T MCV 88 fL 79-[address] [facility] [address] [place], [address], 08/24/2023 06:16:17 08/23/19 24 08/23/2023 CBC WITH DIFFE RENTI AL/PL ATELE T MCH 28.3 pg 26.6-[address] [facility] [address] [place], [address], 08/24/2023 06:16:17 08/23/19 24 08/23/2023 CBC WITH DIFFE RENTI AL/PL ATELE T MCHC 32.2 g/dL 31.5-[address] [facility] [address] [place], [address], 08/24/2023 06:16:17 08/23/19 24 08/23/2023 CBC WITH DIFFE RENTI AL/PL ATELE T RDW 14.3 % 11.5-[address] [facility] [address] [place], [address], 08/24/2023 06:16:17 08/23/19 24 08/23/2023 CBC WITH DIFFE RENTI AL/PL ATELE T platelets 303 x10e3 /uL 150-[address] [facility] [address] [place], [address], 08/24/2023 06:16:17 08/23/19 24 08/23/2023 CBC WITH DIFFE RENTI AL/PL ATELE T neutrophils 60 % notest b. Not Available [facility] [address] [place], [address], 08/24/2023 06:16:17 08/23/19 24 08/23/2023 CBC WITH DIFFE RENTI AL/PL ATELE T lymphs 31 % notest b. Not Available [facility] [address] [place], [address], 08/24/2023 06:16:17 08/23/19 24 08/23/2023 CBC WITH DIFFE RENTI AL/PL ATELE T monocytes 7 % notest b. Not Available [facility] [address] [place], [address], 08/24/2023 06:16:17 08/23/19 24 08/23/2023 CBC WITH DIFFE RENTI AL/PL ATELE T eos 1 % notest b. Not Available [facility] [address] [place], [address], 08/24/2023 06:16:17 08/23/19 24 08/23/2023 CBC WITH DIFFE RENTI AL/PL ATELE T basos 1 % notest b. Not Available [facility] [address] [place], [address], 08/24/2023 06:16:17 08/23/19 24 08/23/2023 CBC WITH DIFFE RENTI AL/PL ATELE T neutrophils (absolute) 5.2 x10e3 /uL 1.4-7. [address] [facility] [address] [place], [address], 08/24/2023 06:16:17 08/23/19 24 08/23/2023 CBC WITH DIFFE RENTI AL/PL ATELE T lymphs (absolute) 2.7 x10e3 /uL 0.7-3. [address] [facility] [address] [place], [address], 08/24/2023 06:16:17 08/23/19 24 08/23/2023 CBC WITH DIFFE RENTI AL/PL ATELE T monocytes(ab solute) 0.6 x10e3 /uL 0.1-0. [address] [facility] [address] [place], [address], 08/24/2023 06:16:17 08/23/19 24 08/23/2023 CBC WITH DIFFE RENTI AL/PL ATELE T eos (absolute) 0.1 x10e3 /uL 0.0-0. [address] [facility] [address] [place], [address], 08/24/2023 06:16:17 08/23/19 24 08/23/2023 CBC WITH DIFFE RENTI AL/PL ATELE T baso (absolute) 0.1 x10e3 /uL 0.0-0. [address] [facility] [address] [place], [address], 08/24/2023 06:16:17 08/23/19 24 08/23/2023 CBC WITH DIFFE RENTI AL/PL ATELE T immature granulocytes 0.6 % notest b. Not Available [facility] [address] [place], [address], 08/24/2023 06:16:17 08/23/19 24 08/23/2023 CBC WITH DIFFE RENTI AL/PL ATELE T immature grans (abs) 0.1 x10e3 /uL 0.0-0. [address] [facility] [address] [place], [address], 08/24/2023 06:16:17 08/23/19 24 08/23/2023 CBC WITH DIFFE RENTI AL/PL ATELE T NRBC 0 % 0-[address] [facility] [address] [place], [address], 08/24/2023 06:16:17 08/23/19 24 08/24/2023 TSH+F REE T4 TSH 1.680 uIU/m L 0.450- 4.500 Not Available [facility] ([facility]) [address] [place], [address], 08/24/2023 08:22:42 08/23/19 24 08/24/2023 TSH+F REE T4 T4,free(dire ct) 0.98 NG/dL 0.82-1 .77 Not Available [facility] ([facility]) [address] [facility], [place], [address], 08/24/2023 08:22:42 08/24/19 24 08/24/2023 Pap test, thinp rep, refle x hr + lr HPV, cervi cesar Pap, thinprep, HPV negati ve Not Available Not Available 13:16:35 08/17/19 25 08/17/2024 PPD (jessica fied prote in deriv ative ), skin test Result Negati ve Not Available In-Office Order Internal Use Only DO Not Attach Compendium DO Not Attach Compendium, Do Not Delete/merge, [id number] 08/15/2024 12:19:56 10/06/19 23 10/05/2022 US, doppl er, arter ial No observ ation record ed. [facility] [address] [place], [address], 10/07/2022 14:20:58 Result Notes None recorded. 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 Cinthia Posada [place] null, [place] 11:35:26 Loss of hair 423957077 Completed 201805/22/2019 Levi Castillo null, [facility] 9 11:37:41 Pregnanc y 45393825 Completed 201805/22/2019 Levi Castillo null, [place] - [facility] 9 11:37:29 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 866226927 Completed Lisa Espinoza MD Attn: Hennacorine brantley,[address] [facility], [place], [address], [facility] 17:30:18 Fibrocys tic disease of breast 55612041 Completed 2018 Lisa Espinoza MD Attn: Frandy brantley,[address] [facility], [place], [address], [facility] 1 17:30:18 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 - SI 1 17:30:18 Ultrasou nd scan abnormal 925731304 Completed 2019 echogeni c focus of left ventricl e Lisa Espinoza MD Attn: Frandy brantley,[address] [facility], [place], [address], [facility] - SI 1 17:30:18 Ultrasou nd scan abnormal 915557588 Active 2019 echogeni c focus of left ventricl e Cinthia Posada [place] null, [place] [facility] 1 11:35:25 Smoker 69104977 Completed 2019 Lisa Espinoza MD Attn: Frandy brantley,[address] [facility], [place], [address], [place] [facility] 1 17:30:18 Smoker 45073755 Active 2019 Cinthia Posada [place] [facility] 1 11:35:25 Glucose toleranc e test during pregnanc y - baby not yet delivere d outside referenc e range 187458083 Active 2019 Cinthia Posada [place] [facility] 1 11:35:25 Glucose toleranc e test during pregnanc y - baby not yet delivere d outside referenc e range 719040589 Completed 2019 Lisa Espinoza MD Attn: Frandy brantley,[address] [facility], [place], [address], [place] [facility] 1 17:30:18 growth restrict ion 22198702 Active Cinthia Posada [place] [facility] 1 11:35:26 growth restrict ion 91317879 Completed Lisa Espinoza MD Attn: Frandy brantley,[address] [place], [address], [place] [facility] 1 17:30:18 Breech presenta tion 0138390 Completed 201912/06/2019 Levi Castillo [place] [facility] 0 11:48:18 Breech presenta tion 3960926 Completed 2019 Lisa Espinoza MD Attn: Frandy fercho,[address] [place], [address], [place] [facility] 1 17:30:18 Group B Streptoc occus carrier 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 Active 2019 Cinthia Posada [place] [facility] 1 11:35:26 Group B Streptoc occus carrier 87299778686 03 Completed 2019 Lisa Espinoza MD Attn: Frandy brantley,[address] [facility], [place], [address], [place] [facility] 1 17:30:18 Skin lesion 74211844 Completed 05/22/2019 Levi Castillo [place] [facility] 9 11:37:54 Primate erythrop arvoviru s 1 infectio n 50631452 Completed 05/22/2019 Levi Castillo [place] [facility] 9 11:37:47 Vitamin D deficien cy 11343479 Active Cinthia Posada [place] [facility] 1 11:35:25 Vitamin D deficien cy 23951108 Completed Adalgisa Reese [place] [facility] 6 14:25:19 Group B Streptoc occus carrier 62161231597 03 Completed Adalgisa Reese [place] [facility] 6 14:25:19 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 150759361 Completed Adalg[place] [facility] 6 14:25:19 Hypereme sis 277291388 Completed 05/22/2019 Levi Busbyman [place] [facility] 9 11:37:38 Hypereme sis 809687869 Completed Adalg[place] [facility] 6 14:25:19 Upper respirat ory infectio n 28792780 Completed 05/22/2019 [place] Castillo [place] [facility] 9 11:38:06 Upper respirat ory infectio n 55841455 Completed Adalgisa Ridleyer [place] [facility] 6 14:25:19 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 096115454 Active Cinthia Posada [place] [facility] 1 11:35:26 Postpart [facility] 63645079 Completed 05/22/2019 [place] Castillo [place] [facility] 9 11:37:34 Postpart [facility] [id number] Completed Adalgisa Reese [place] [facility] 6 14:25:19 Problem Notes None recorded. Procedures Surgical History Date Name Laterality Status Provider Name and Address Organization Details Recorded Time 03/21/2019 Date of Last Pap Smear completed Cinthia Posada MA [facility] 09/09/2022 12:06:34 Imaging Results Imaging Date Name Status LastModified by Organiz [facility] Details LastModified Time 10/05/2022 US, doppler, arterial completed [facility] [address] [place], [address], 10/07/2022 14:20:58 Procedure Notes None recorded. Medical Equipment None Reported. Allergies Allergen ID Allergen Name Allergen Category Reaction Reaction Severity Criticality Documentation Date Start Date Code Code System Note Provider Name and Address Organization Details Recorded Time 640977 amoxicill in medicatio n rash mild low 08/28/20222022 723 RxNorm Kai Gil LPN null, [facility] 14:16:03 Medications Name Sig Start Date Stop Date Status Note LastModified by Organization Details LastModified Time multivitam in tablet TAKE 1 TABLET BY MOUTH DAILY 12/17 completed Not Available Not Available Not Available methocarba mol 500 mg tablet TAKE 2 TABLETS BY MOUTH FOUR TIMES DAILY 09/10 completed Not Available Not Available Not Available tuberculin PPD 5 tub. unit/0.1 mL intraderma l injection solution Administ er .1ml interder al 2024 active Not Available Not Available Not Avai lable bupropion HCl SR 150 mg tablet,12 hr sustained- release Take 1 tablet twice a day by oral route. 11/12 completed Not Available Not Available Not Available acetaminop hen 325 mg tablet 12/19 completed Not Available Not Available Not Available ketoconazo le 2 % shampoo APPLY TO THE AFFECTED AREAS LATHER LEAVE IN PLACE FOR 5 MINUTES THEN RINSE BY TOPICAL ROUTE X 3 DAYS 08/17 completed Not Available Not Available Not Available clindamyci n HCl 300 mg capsule TAKE 1 CAPSULE BY MOUTH THREE TIMES DAILY 08/17 completed Not Available Not Available Not Available evening primrose oil 500 mg capsule Take 1 capsule every day by oral route in the evening. 05/22 completed Not Available Not Available Not Available cetirizine 10 mg tablet TAKE 1 TABLET BY MOUTH EVERY DAY 12/17 completed Not Available Not Available Not Available azithromyc in 250 mg tablet TAKE 2 TABLETS (500 MG) BY ORAL ROUTE ONCE DAILY FOR 1 DAY THEN 1 TABLET (250 MG) BY ORAL ROUTE ONCE DAILY FOR 4 DAYS 12/19 completed Not Available Not Available Not Available ibuprofen 800 mg tablet TAKE 1 TABLET BY MOUTH THREE TIMES DAILY DURING MENSES active Not Available Not Available No t Available nicotine (polacrile x) 2 mg gum Chew 1 piece of gum every 2 hours by oral route. 01/29 completed Not Available Not Available Not Available fluconazol e 150 mg tablet Take 1 tablet every day by oral route as directed for 1 day. 02/06 completed Not Available Not Available Not Available clomiphene citrate 50 mg tablet Take 1 tablet every day by oral route for 5 days. 05/22 completed Not Available Not Available Not Available hydrocodon e 5 mg-acetami nophen 325 mg tablet 05/22 completed Not Available Not Available Not Available Celestone Soluspan 6 mg/mL suspension for injection Take 2 mL by injectio n route for 2 days. 12/19 completed Not Available Not Available Not Available ondansetro n HCl 4 mg tablet Take 1 tablet every 8 hours by oral route as needed. active Not Available Not Available No t Available prednisone 20 mg tablet 05/22 completed Not Available Not Available Not Available clindamyci n HCl 150 mg capsule TAKE 3 CAPSULES BY MOUTH THREE TIMES DAILY 09/10 completed Not Available Not Available Not Available penicillin V potassium 500 mg tablet Take 1 tablet twice a day by oral route for 10 days. 01/29 completed Not Available Not Available Not Available amoxicilli n 500 mg tablet 03/20 completed Not Available Not Available Not Available amoxicilli n 400 mg-potassi um clavulanat e 57 mg/5 mL oral suspension Take 10 mL every 12 hours by oral route with meals for 7 days. 09/09 completed Not Available Not Available Not Available Vitamin tablet Take 1 tablet every day by oral route as directed for 90 days. 01/29 completed Not Available Not Available Not Available cephalexin 500 mg capsule 05/22 completed Not Available Not Available Not Available cyanocobal gonzalez (vit B-12) 1,000 mcg/mL injection solution Inject 1 mL every month by subcutan eous route. 01/29 completed Not Available Not Available Not Available polymyxin B sulfate 10,000 unit-trime thoprim 1 mg/mL eye drops INT 1 GTT IN OU Q 3 H WA FOR 7 DAYS 12/19 completed Not Available Not Available Not Available progestero ne micronized 200 mg capsule Take 1 capsule twice a day by oral route. 01/29 completed Not Available Not Available Not Available folic acid 1 mg tablet Take 4 tablets every day by oral route. 12/19 completed Not Available Not Available Not Available ibuprofen 600 mg tablet 12/19 completed Not Available Not Available Not Available methylpred nisolone 4 mg tablets in a dose pack 09/10 completed Not Available Not Available Not Available Enteric Coated Aspirin 81 mg tablet,del ayed release TAKE 2 TABLETS BY MOUTH EVERY DAY 12/19 completed Not Available Not Available Not Available norethindr one (contracep tive) 0.35 mg tablet Take 1 tablet every day by oral route. 05/22 completed Not Available Not Available Not Available Percocet 5 mg-325 mg tablet Take 1 tablet every 6 hours by oral route. 05/22 completed Not Available Not Available Not Available fluticason e propionate 50 mcg/actuat ion nasal spray,susp ension SHAKE LIQUID AND USE 1 SPRAY IN EACH NOSTRIL EVERY DAY DIRECTED 12/17 completed Not Available Not Available Not Available naproxen 500 mg tablet 05/22 completed Not Available Not Available Not Available metoclopra mide 10 mg tablet Take 1 tablet twice a day by oral route before meals. 05/22 completed Not Available Not Available Not Available amoxicilli n 875 mg-potassi um clavulanat e 125 mg tablet TAKE 1 TABLET BY MOUTH TWICE DAILY 09/09 completed Not Available Not Available Not Available chlorhexid ine gluconate 0.12 % mouthwash 05/22 completed Not Available Not Available Not Available Oysco 500/D 500 mg-5 mcg (200 unit) tablet TAKE 1 TABLET BY MOUTH TWICE DAILY 12/17 completed Not Available Not Available Not Available FeroSul 325 mg (65 mg iron) tablet TAKE 1 TABLET BY MOUTH DAILY active Not Available Not Available No t Available RhoGAM Ultra-Filt ered PLUS 1,500 unit (300 mcg) intramuscu lar syringe Inject 1 syringe by intramus cular route. 01/29 completed Not Available Not Available Not Available melatonin 5 mg tablet Take 1 tablet by oral route at bedtime. 11/12 completed Not Available Not Available Not Available Calcium with Vitamin D3 600 mg (carbonate )-10 mcg (400 unit) capsule Take 1 capsule twice a day by oral route. 11/12 completed Not Available Not Available Not Available Calcium with Vitamin D 600 mg-10 mcg (400 unit) tablet Take 1 tablet twice a day by oral route. 12/17 completed Not Available Not Available Not Available vitamin E (dl, acetate) 180 mg (400 unit) capsule Take 1 capsule twice a day by oral route. 05/22 completed Not Available Not Available Not Available tranexamic acid 650 mg tablet TAKE 2 TABLETS BY MOUTH THREE TIMES DAILY FOR 5 DAYS 12/19 completed Not Available Not Available Not Available Plus (calcium carbonate) 27 mg iron-1 mg tablet active Not Available Not Available Not Available 28 mg iron-800 mcg tablet 12/19 completed Not Available Not Available Not Available calcium 600 mg (as carbonate) -vitamin D3 20 mcg (800 unit) tablet Take 1 tablet twice a day by oral route for 30 days. 05/22 completed Not Available Not Available Not Available Xulane 150 mcg-35 mcg/24 hr transderma l patch APPLY 1 PATCH TO SKIN WEEKLY. USE CONTINUO USLY WITH NO WEEKS OFF 12/17 completed Not Available Not Available Not Available Slynd 4 mg (28) tablet 12/17 completed 1 pt states only took bcp x 1 month, cb-rma Not Available Not Available Not Available Annovera 0.15 mg-0.013 mg/24 hr vaginal ring Insert one ring intravag inally for 3 weeks then remove, rinse and store ring in containe r for 4th week. Repeat cycle with the same ring for 1 year (13cycle s) then discard or leave in for 1 year 08/17 completed Not Available Not Available Not Available Vitals Date Recorded Body height Body mass index (BMI) Body weight Systolic blood pressure Diastolic blood pressure Provider Name and Address Organization Details Last Updated DateTime 09/09/2022 170.18 cm 22.2 kg/m2 04523.12 g 92 mm[Hg] 56 mm[Hg] Cinthia Posada MA [facility] 3 12:12:30 Date Recorded Body height Body mass index (BMI) Body weight Heart rate Body temperature Oxygen saturation Oxygen saturation in Arterial blood by Pulse oximetry Systolic blood pressure Diastolic blood pressure Provider Name and Address Organization Details Last Updated DateTime 3 170.18 cm 22.7 kg/m2 00492.4 9 g 71 /min 99 [degF] 98 % 98 % 110 mm[Hg] 62 mm[Hg] Lyn Daniels MA [facility] 3 15:00:30 Date Recorded Body height Body mass index (BMI) Body weight Oxygen saturation Oxygen saturation in Arterial blood by Pulse oximetry Heart rate Body temperature Systolic blood pressure Diastolic blood pressure Provider Name and Address Organization Details Last Updated DateTime 4 170.18 cm 22.6 kg/m2 37394.7 3 g 98 % 98 % 78 /min 98.4 [degF] 118 mm[Hg] 68 mm[Hg] Laurel Gordon MA [facility] 4 12:13:15 Social History Question Answer Notes LastModified by Organizat ion Details LastModified Time Tobacco Smoking Status Current Every Day Smoker Lyn Trevizo MA null, [facility] 10/23/2014 11:46:25 Do You Have An Advance Directive? No [email or web address] Information not available 10/23/2014 If You Are , What Was Your Level Of Alcohol Consumption Prior To ? Occasional Information not available 05/22/2019 How Many Years Have You Consumed Alcohol? 8 Information not available 05/22/2019 Is Anesthesia Consult Planned? Yes Epidural Is YES Information not available 11/13/2019 Plan Yes Information no t available 11/13/2019 Is Blood Transfusion Acceptable In An Emergency? Yes [email or web address] Information not available 10/23/2014 What Is Your Level Of Caffeine Consumption? Occasional [email or web address] Information not available 10/23/2014 Live With Cats/exposure To Cat Litter No Information not available 05/22/2019 How Much Tobacco Do You Chew? None [email or web address] Information not available 10/23/2014 In The 14 Days Before Symptom Onset, Have You Had Close Contact With A Laboratory-confi rmed COVID-19 While That Case Was Ill? No Information not available 12/19/2020 In The 14 Days Before Symptom Onset, Have You Had Close Contact With A Person Who Is Under Investigation For COVID-19 While That Person Was Ill? No Information not available 12/19/2020 Have You Been To An Area Known To Be High Risk For COVID-19? No Information not available 12/19/2020 What Type Of Diet Are You Following? REGULAR [email or web address] Information not available 10/23/2014 Which Illicit Or Recreational Drugs Have You Used? Denies Information not available 11/13/2019 Education 4 Year College [email or web address] Information not available 10/23/2014 Have There Been Any Changes To Your Family Or Social Situation? No Information not available 05/22/2019 Frequent Air Travel No Information not available 05/22/2019 Illicit Drugs Pre- No Information not available 05/22/2019 How Many Years Have You Used Illicit Or Recreational Drugs? 0 Information not available 11/13/2019 Live Alone Or With Others? With Others [email or web address] Information not available 10/23/2014 Marital Status Single Informatio n not available 11/13/2019 What Was The Date Of Your Most Recent Tobacco Screening? 08/17/2023 [email or web address] Information not available 08/17/2023 How Many Children Do You Have? 2 Information not available 01/30/2020 Are There Any Occupational Health Risks Where You Work? None Information not available 05/22/2019 What Is Your Current Pack Years? 20-29packyear s Information not available 09/09/2022 Performs Monthly Self-breast Exam? No [email or web address] Information not available 10/23/2014 Do You Use Protection During Sex? No [email or web address] Information not available 10/23/2014 What Is Your Relationship Status? Single [email or web address] Information not available 10/23/2014 Do You Use Your Seat Belt Or Car Seat Routinely? Yes Information not available 02/06/2021 Seat Belts Used Routinely Yes [email or web address] Information not available 10/23/2014 Are You Sexually Active? Yes [email or web address] Information not available 10/23/2014 Do You Have Smoke And Carbon Monoxide Detectors In Your Home? Yes Information not available 05/22/2019 At What Age Did You Start Smoking Tobacco? 17 [email or web address] Information not available 10/23/2014 Are You Passively Exposed To Smoke? Yes Information not available 12/17/2021 How Much Tobacco Do You Smoke? 0.25 PPD [email or web address] Information not available 07/24/2019 Smoking Pre- .5 PPD Information not available 05/22/2019 General Stress Level Medium [email or web address] Information not available 10/23/2014 Do You Use Sunscreen Routinely? Yes [email or web address] Information not available 10/23/2014 Supplements Chewable Prenatals, Information not available 05/22/2019 Has Tobacco Cessation Counseling Been Provided? No Information not available 09/10/2022 On What Date Was Tobacco Cessation Counseling Provided? 09/10/2022 Information not available 09/10/2022 How Many Years Have You Smoked Tobacco? 7 [email or web address] Information not available 10/23/2014 Sex: Female Functional Status Question Answer Note LastModified by Organizat ion Details LastModified Time Do you use any illicit or recreational drugs? Yes marijuana Information not available 12/17/2021 Do you or have you ever used any other forms of tobacco or nicotine? No Information not available 02/06/2021 What is your level of alcohol consumption? None Information not available 12/17/2021 Do you or have you ever used smokeless tobacco? Never used [email or web address] tobacco Information not available 05/22/2019 Are you currently employed? 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 Never used electronic cigarettes Information not available 05/22/2019 What is your exercise level? Occasional [email or web address] Information not available 10/23/2014 Mental Status None recorded. Family History Relationship Description Onset Age of this Age Resolved Age Notes LastModified by Organization Details LastModified Time Paternal Aunt Malignant tumor of breast [email or web address] Not available 2015 17:20:01 Paternal Grandmother Malignant tumor of breast [email or web address] Not available 2015 17:20:01 Mother Diabetes mellitus [email or web address] Not available 2015 17:20:01 Father Hypertensive disorder [email or web address] Not available 2015 17:20:01 Medical History Condition Response Blood Diseases N Kidney Cyst N Hyperthyroidism N Blood Transfusion N Blood disorders N MRSA N Emphysema N Depression N Blood Clots N Pneumonia N Peripheral Arterial Disease N Premature N Edema N TIA N Headaches/Migraines N Anxiety Disorder N Obesity N Polyps N Infertility N Acid Reflux (GERD) N Hematuria N Neck Injury N Polio N Hospital Admission other than N Neurologic Disorder N Other Sleep Disorders N Rheumatoid Arthritis N Fibromyalgia N Abdominal Aortic Aneurysm Repair N Kidney Disease N Heart Conditions N Heart Disease/Heart Problems N Hospitalizations N Brain Tumors N Acne N Eating Disorder N Constipation N Meningitis N Cerebral Palsy N Tuberculosis N Myocardial Infarction N Asthma N Peripheral Vascular Disease N Substance Abuse N Vertigo N Sleep Disorder N Cirrhosis N Pulmonary Embolism N Chicken Pox Y Flomax Use Past or Present N Hematologic Disease N Anxiety/Depression N Thyroid Disease N Colon Cancer N Lung Disease N Glaucoma N Developmental or Behavioral Disorders N Bipolar N Pacemaker N Diverticulitis/Diverticulosis N Orthopedic Problems N Anesthesia Complications N Orthotics N Head Injury/Concussion N Congenital Anomalies N Kebede Bite N Chronic Kidney Disease N Endometriosis N Liver Disease N Schizophrenia N Dialysis N Speech Delay N Chronic Obstructive Pulmonary Disease N Parkinson's Disease N Thyroid Problems N GI Problems N Developmental Delay N Anemia N Multiple Sclerosis N Immune System Disorder N Colon Polyps N Diabetes N Cardiomyopathy N Blood Transfusions N Heart Problems/Murmur N Eye Trauma N Congestive Heart Failure (CHF) N Valvular Heart Disease N Hyperlipidemia N Double Vision N Abuse/Domestic Violence N Hepatitis B N Lupus N Epilepsy/Seizures N Reflux/GERD N Aneurysm N Bronchitis N Heart Disease N Hypertension N Pre-Eclampsia N Other N Gout N High Blood Pressure N Kidney Stones N Head Trauma/Injury N Congenital Heart Disease N Spine Problems N Gastrointestinal Disease N Lung Mass N Sinusitis Y Obstructive Sleep Apnea N Muscle, Joint, or Bone Problems N Autoimmune disease N Vision or Eye Problems N Arthritis N Blood Clot N Cancer N Seasonal allergies Y Leg or Foot Ulcers N Raynaud's Disease N Aortic Aneurysm N Arrhythmia N Heart Problems N Ambloypia N Ear or Hearing Problems N Hyperparathyroidism N Migraines N Artificial Joints N Kidney or Bladder Problems N NSAID Use N Encephalitis N PTSD N Ulcers N Prostate Hypertrophy N Bleeding Disorder N AIDS/HIV N Urinary Tract Infection N Back Problems N Atrial Flutter N GERD/Reflux N Hepatitis N Autism Spectrum Disorder (ASD) N Breast Cancer N Hernia N Hypothyroidism N Breast Problem Y Genitourinary Disease N Deep Vein Thrombosis N Varicose Veins N Cystic Fibrosis N Hearing Loss N Developmental Problems N Carotid Disease N Vitamin D Deficiency Y ADHD N Bladder or Kidney Problems N High Cholesterol N [place] N Valvular Abnormalities N Psychiatric/Mental Health Condition N Organ Transplant N Foot Deformity N Allergies/Hayfever Y Dyslipidemia N Hyponatremia N Diabetic Eye Disease N Osteoporosis/Osteopenia N Back Pain N Proteinuria N Mental Illness N Neurological Problems N Ovarian Cancer N Bedwetting N Seizures/Epilepsy N Kidney Failure N Ocular trauma N Diverticulitis N Dementia N Sleep Apnea N Mental Problems N Warfarin Management N Osteoporosis N Gynecological History Statement/Question Response Abnormal Pap N Flow Heavy Date of LMP 07/27/2023 On BCP's at Conception? N STIs/STDs N HPV Vaccine Y Duration of Flow (days) 7 Age at Menarche 12 Current Control Method None Age at First Child 26 Frequency of Cycle (Q days) 30 Sexually Active? Y Menses Monthly Y Date of Last Pap Smear 03/21/2019 Sexual Problems? N LMP Definite Desired Control Method BCPs Obstetrics History GPAL:G 2 P 2 0 0 2 Type Value Multiple Births 0 Full Term 2 Induced 0 Spontaneous 0 Premature 0 Living 2 Ectopics 0 Total 2 Immunizations Vaccine Type Date Status Note Provider Jose lira and Address Organization Details Recorded Time MMR 12/26/1993 completed LI[place]ETTE [place], [place] - [facility] 12/18/2022 12:06:47 DTP 12/26/1993 completed LIZETTE [place], [place] - [facility] 12/18/2022 12:06:47 OPV 12/26/1993 completed LIZETTE Prince, [place]AC[place] - [facility] 12/18/2022 12:06:47 Hep B, adult 07/24/2019 completed Cinthia frank MA alma, [place] - [facility] 12/18/2022 12:06:48 Influenza, split virus, quadrivalent, PF 07/24/2019 completed [facility] 0 02:41:59 Tdap 10/17/2019 completed Cinthia Posada MA alma, STACY - [facility] 10/17/2019 13:38:41 Tdap 06/19/2015 completed Not Available [facility] 07/29/2019 02:40:21 Past Encounters Encounter ID Performer Location Encounter Start Date Encounter Closed Date Diagnosis/Indication Diagnosis SNOMED-CT Code Diagnosis ICD10 Code Diagnosis Note [id number] MD Hannah Crawford (CLINICAL INFORMATION SYSTEMS DIRECTOR) [address] [place] [address] [id number] 10/23/2014 10:53:04 10/23/2014 12:13:04 Gynecologic examination [id number] MD Hannah Castaneda (Adult Med) [address] [place] [address] [id number] 01/16/2015 14:03:04 01/18/2015 14:57:02 Family history of diabetes mellitus 281066166 [id number] MD Hannah Crawford (CLINICAL INFORMATION SYSTEMS DIRECTOR) [address] [place] [address] [id number] 0 02/26/2015 10:36:00 02/26/2015 12:14:11 [id number] Vitamin D deficiency 12890549 [id number] MD Hannah Crawford (CLINICAL INFORMATION SYSTEMS DIRECTOR) [address] [place] [address] [id number] 03/15/2015 14:26:13 03/15/2015 14:56:08 Normal [id number] MD Hannah Crawford (CLINICAL INFORMATION SYSTEMS DIRECTOR) [address] [place] [address] [id number] 0 03/27/2015 14:17:49 03/27/2015 15:28:39 [address]84 Group B St reptococcus carrier 4448538265 103 GBS UTI 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 079196502 [id number] MD Hannah Crawford (CLINICAL INFORMATION SYSTEMS DIRECTOR) [address] [place] [address] [id number] 0 04/24/2015 14:25:45 04/24/2015 15:56:13 Normal 22303325 Z33.[address] reptococcus carrier 9766172249 103 Z22.330 GBS UTI Vitamin D deficiency 347 92075 E55.9 [id number] Levi [facility] (CLINICAL INFORMATION SYSTEMS DIRECTOR) [address] [place] [address] [id number] 05/22/2015 15:20:03 05/22/2015 17:01:06 44364634 Z33.1 Upper resp iratory infection 15483811 J06.9 Vitamin D deficiency [address] reptococcus carrier 3841417937 103 Z22.330 GBS UTI [id number] [facility]CLINICAL INFORMATION SYSTEMS DIRECTOR) [address] [place] [address] [id number] 0 06/19/2015 10:05:43 06/19/2015 11:38:56 Normal 23255948 Z33.1 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 762792597 Z 01.83 [id number] Levi [facility] (CLINICAL INFORMATION SYSTEMS DIRECTOR) [address] [place] [address] [id number] 0 07/17/2015 15:18:34 07/17/2015 16:41:46 Normal 34568338 Z33.1 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 454255601 Z87.[address] reptococcus carrier 3854938315 103 Z22.330 GBS UTI Vitamin D deficiency 347 46813 E55.9 [id number] MD Hannah Crawford (CLINICAL INFORMATION SYSTEMS DIRECTOR) [address] [place] [address] [id number] 0 07/31/2015 15:28:24 07/31/2015 16:33:57 Third trimester 72854040 Z33.1 [id number] MD Hannah Crawford (CLINICAL INFORMATION SYSTEMS DIRECTOR) [address] [place] [address] [id number] 08/14/2015 14:59:52 08/14/2015 17:27:59 Third trimester 65862243 Z33.1 [id number] MD Hannah Crawford (CLINICAL INFORMATION SYSTEMS DIRECTOR) [address] [place] [address] [id number] 0 08/28/2015 15:19:12 09/04/2015 14:15:50 Routine care 228597967 Z34.93 [id number] Levi Castillo [facility] (CLINICAL INFORMATION SYSTEMS DIRECTOR) [address] [place] [address] [id number] 09/04/2015 15:30:04 09/04/2015 17:11:30 Routine care 398770026 Z34.93 [id number] Levi Castillo MD [facility] (CLINICAL INFORMATION SYSTEMS DIRECTOR) [address] [place] [address] [id number] 0 09/11/2015 15:12:16 09/11/2015 16:19:17 Routine care 440968299 Z34.[address] and US on 09/13/2015 for pelvic index to determine if trial of labor is possible or whether she needs an elective . [id number] [facility] (CLINICAL INFORMATION SYSTEMS DIRECTOR) [address] [place] [address] [id number] 04/06/2016 15:53:51 04/07/2016 21:24:49 state 99817441 Z39.2 care 70694986 8 Z39.2 [id number] Levi Castillo MD [facility] (CLINICAL INFORMATION SYSTEMS DIRECTOR) [address] [place] [address] [id number] 10/04/2018 11:45:58 10/06/2018 12:00:01 Fibrocystic disease of breast 70991186 N60.19 [id number] [facility] (CLINICAL INFORMATION SYSTEMS DIRECTOR) [address] [place] [address] [id number] 0 03/20/2019 16:08:24 03/21/2019 12:43:43 Gynecologic examination 15120380 Z01.419 Exposure t o sexually transmissible disorder 027918414 Z20.2 Family ganga nning surveillance 065768958 Z30.09 Loss of hair 832665361 L 65.9 Stress 27900728 Z73.3 Declines psychiatri c interventi on at this time Smoker 92310840 F17.200 Does not desire smoking cessation medication at this time, 03/20/2019 [id number] MD Hannah Crawford (CLINICAL INFORMATION SYSTEMS DIRECTOR) [address] [place] [address] [id number] 0 05/22/2019 10:07:28 05/23/2019 10:21:44 Routine care 070865074 Z34.93 Venereal d isease screening 740358790 Z11.3 screening 2437 18193 Z36.85 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 105841912 Z .83 Cigarette smoker 3691795 7 F17.289 [id number] MD Hannah Crawford (CLINICAL INFORMATION SYSTEMS DIRECTOR) [address] [place] [address] [id number] 0 06/02/2019 10:40:08 06/05/2019 12:43:53 [id number] MD Hannah Crawford (CLINICAL INFORMATION SYSTEMS DIRECTOR) [address] [place] [address] [id number] 0 06/19/2019 10:34:36 06/21/2019 11:41:49 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 Routine an tenatal care 454009675 Z34.93 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 223168857 Z RhoGAM @28w [id number] MD Hannah Crawford (CLINICAL INFORMATION SYSTEMS DIRECTOR) [address] [place] [address] [id number] 06/30/2019 10:35:28 06/30/2019 12:06:12 Heterozygous methylenetetrahydrofo late reductase mutation [id number] 22787 E72.12 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 and AFP lab. Sleep fazraneh devon disturbance 61310785 G47.9 [id number] ANITA HARE (CLINICAL INFORMATION SYSTEMS DIRECTOR) [address] [place] [address] [id number] 0 07/24/2019 14:54:37 07/26/2019 13:02:22 History and physical examination, school 26347483 Z02.0 School physical form completed and provided to patient. Vaccine summary copies provided to patient. Administra tion of influenza vaccine 85907652 Z23 Tuberculos is screening 499341108 Z11.1 Requires c ourse of hepatitis B vaccination 848222668 Z28.3 Dose #1 today. Dose 2 in 1 month and dose 3 in 6 months. [id number] [facility] (CLINICAL INFORMATION SYSTEMS DIRECTOR) [address] [place] [address] [id number] 0 07/26/2019 16:08:05 08/01/2019 09:46:00 Tuberculosis screening 769726866 Z11.1 [id number] MD Hannah Crawford (CLINICAL INFORMATION SYSTEMS DIRECTOR) [address] [place] [address] [id number] 0 07/28/2019 10:40:23 07/28/2019 14:01:24 Alpha-fetoprotein test - 966511343 Z36.1 Routine an tenatal care 764748818 Z34.93 Nursing appointmen t scheduled for 07/31/2019 for B12 inj. and AFP lab. 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 001601172 Z 01.83 RhoGAM @28w Vitamin D deficiency 347 93060 E55.9 Ultrasound scan abnormal 437221365 R93.89 echogenic focus of left ventricle [id number] MD Hannah Crawford (CLINICAL INFORMATION SYSTEMS DIRECTOR) [address] [place] [address] [id number] 0 09/19/2019 10:29:57 09/21/2019 15:01:32 Routine care 715607335 Z34.93 Heterozygo us methylenetetrahydrofo late reductase mutation [id number] 18454 E72.12 heterozygo us for the MTHFR 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 [id number] Z .83 RhoGAM @28w Pelvic and perineal pain 321973467 R10.2 Gastroesop hageal reflux disease without esophagitis 399297585 K21.9 Banana therapy- 1 banana in the morning and 1 before bed [id number] MD Hannah Crawford (CLINICAL INFORMATION SYSTEMS DIRECTOR) [address] [place] [address] [phone] 0 10/17/2019 09:58:36 10/17/2019 11:05:47 Routine care 895439835 Z34.93 screening 2437 39791 Z36.9 Heterozygo us methylenetetrahydrofo late reductase mutation [id number] 03159 E72.12 heterozygo us for the MTHFR 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 462030941 Z RhoGAM @28w Smoker 33205920 F17.200 Does not desire smoking cessation medication at this time [id number] [facility] (CLINICAL INFORMATION SYSTEMS DIRECTOR) [address] [place] [address] [phone] 0 10/30/2019 10:59:39 11/03/2019 13:58:12 Routine care 020984300 Z34.93 Glucose to lerance test outside reference range 177650030 R73.09 Heterozygo us methylenetetrahydrofo late reductase mutation 8809659199 18454 E72.12 heterozygo us for the MTHFR 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 Smoker 42312755 F17.200 Does not desire smoking cessation medication at this time [id number] MD Hannah Crawford (CLINICAL INFORMATION SYSTEMS DIRECTOR) [address] [place] [address] [phone] 0 11/15/2019 14:34:03 11/15/2019 15:13:20 Routine care 128172227 Z34.93 DELIVER AT [facility]. 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 [id number] MD Hannah Crawford [facility] (CLINICAL INFORMATION SYSTEMS DIRECTOR) [address] [place] [address] [phone] 0 12/06/2019 11:16:01 12/07/2019 06:23:59 Routine care 929846714 Z34.93 DELIVER AT [facility]. 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 678946610 Z RhoGAM @28w [id number] MD Hannah Crawford [facility] (CLINICAL INFORMATION SYSTEMS DIRECTOR) [address] [place] [address] [phone] 0 01/30/2020 16:24:53 01/31/2020 10:56:31 care 231342353 Z39.2 Family ganga nning surveillance 958715334 Z30.09 Urinary tr act infectious disease 29024197 N39.0 [id number] MD Hannah [facility] (CLINICAL INFORMATION SYSTEMS DIRECTOR) [address] [place] [address] [phone] 0 03/06/2020 08:13:17 03/07/2020 09:14:02 Family planning surveillance 847011055 Z30.09 Smoker 18699962 F17.200 Does not desire smoking cessation medication at this time Abnormal u terine bleeding 6631197065 9100 N93.9 slynd, tranexamic acid, iron and vitamins with negative US [id number] MD Hannah Crawford [facility] (CLINICAL INFORMATION SYSTEMS DIRECTOR) [address] [place] [address] [phone] 0 04/03/2020 10:38:15 04/03/2020 20:49:09 [id number] MD Hannah Crawford (CLINICAL INFORMATION SYSTEMS DIRECTOR) [address] [place] [address] [phone] 12/18/2020 08:43:43 12/23/2020 07:01:47 Acute urinary tract infection 679130379 N39.0 [id number] ANITA TREJO (Adult Med) [address] [place] [address] [phone] 12/19/2020 08:26:01 12/20/2020 13:46:14 Adult health examination 585397253 Z00.00 Establishi care following ER visit for Headache and Dizziness x 2 weeks. UA showed large blood (on menses) and trace LE (admits to white thin discharge prior to starting menses) - check CMP, CBC, LIPIDS, TSH, urinalysis and Urine Culture. Pt declined vaginal swab currently due to being on her menses - watchful waiting - will call patient with any abnormal lab values Allergic disposition 609 853580 T78.40XA Allergic Rhinitis, middle ear fluid present, does not currently use any medication - start cetirizine 10 mg daily - start flonase daily - once symptoms resolve may take medication s as needed Headache 79767124 R51.9 Pt C/O intermitte nt headaches resolved by sleep or Tylenol Admits to increased stress at work CT scan in the ER was normal - home care for tension headaches provided - will complete labs today - will get records from ER visit - continue to monitor headaches, if they continue or get worse - please f/u [id number] ANITA TREJO (Adult Med) [address] [place] [address] [phone] 0 12/30/2020 11:16:17 12/31/2020 14:39:20 Allergic disposition 801016954 T78.40XA Dizziness has improved since last visitNo improvemen t with cetirizine - c/w flonase- provided her with samples of halima today Acute otitis media 05119 03 H66.93 Complainin g of continued ear fullness and nasal congestion despite flonase and cetirizine daily. Admits to continued sinus pressure and now even a sore throat likely from sinus drainage.O n PE: bilateral TMs erythemato us, bulging, and non-mobile - will start on augmentin x 7 days- continue supportive care at home, rest and fluids- if symptoms do not improve, f/u in office Vaginal di scharge problem 672271047 N89.9 Here today for repeat urine testing and vaginal swab, at least visit was complainin g of abnormal vaginal discharge but was on her menses and did not feel comfortabl e completing vaginal swab at that time.Indu s urinary frequency, dysuria, and urinary hesitancy. 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 First 2 days, every time she went from sitting/la maxwell to standing she experience d the same dizziness like she was going to pass out but also a fast HR, palpitatio ns, shakiness, fatigue. After the 2 days all the symptoms subsided except for increased HR after going from sitting/la maxwell to standing. She says she has monitored her HR with her smart watch and her HR will go from 70s-80bpm to anywhere between 110-140bpm just by standing.H er boyfriend her hands appeared flushed during her episode of dizzinessP atients menstrual cycle started 2-3 days after onset of symptoms, has history of heavy menses, not recent change in bleeding patterns.. She denies known self cardiac issues or family history of cardiac conditions . She also denies similar previous episodes, radiating chest pain, syncope, SOB, HAs, vision changes, and muscle weakness. - on PE while seated patients BPM will fluctuate rapidly from 65 bpm-95 bpm while wearing pulse ox on finger then upon standing patients bpm jumped to 110-130 bpm- patient has history of anemia during , will check iron, TIBC, CBC, ferritin, CMP, TSH, AIMEE. HgbA1C- will wait for lab results and EKG to be completed before further workup Low blood pressure 25766 003 I95.9 Hx of lower BP readings, BP 100/50 today in office Tachycardia 2021949 R00. 0 Patient reports elevated BPM for the last week, with significan t elevations going from seated to standing - on PE while seated patients BPM will fluctuate rapidly from 65 bpm-95 bpm while wearing pulse ox on finger then upon standing patients bpm jumped to 110-130 bpm- ordering EKG [id number] ANITA TREJO (Adult Med) [address] [place] [address] [phone] 05/04/2022 12:34:35 05/05/2022 09:08:23 Tuberculosis screening 550895940 Z11.1 she is here today for a nurses only visit to receive a ppd skin test for her job. she will get it placed wednesday05/04/2022 and come no later on 05/07/2022 to read the results [id number] ANITA HARE [facility] (CLINICAL INFORMATION SYSTEMS DIRECTOR) [address] [place] [address] [phone] 0 09/09/2022 11:56:01 09/16/2022 12:41:54 Contraception care management 869399298 Z30.9 Discussed different control options with patient including R/B/A/I. Pt would like to trial Annovera vaginal ring, hoping for cessation of periods. Counseled on use and SE. RTC 3 months for follow-up and to update pap. Dysmenorrhea 607035402 N 94.6 Chronic dysmenorrh ea, ibuprofen helps. Previous TVUS unremarkab le. Pt encouraged to take ibuprofen around the clock during menses to alleviate cramping. Annovera ring started for hopeful cessation of periods. RTC 3 months or call sooner if needed. [id number] ANITA TREJO (Adult Med) [address] [place] [address] [phone] 0 09/10/2022 14:47:49 09/15/2022 11:11:35 Allergic reaction to drug 559514399 T50.905D She had an ear infection on 08/20/22, after which she had an allergic reaction to amoxicilli n after 6 days taking it, she went to ER on 08/29/22, because she started having rash on body, scalp, face swelling, was itchy, painful, she couldn't breath and had a chest pain for about 2 days with inspiratio n. She received Benadryl, steroids which helped to resolve the problem.- discussed allergy to amoxicilli n/PCN, avoid in the future- chart updated Acute otitis media 01663 03 H66.93 Diagnosed elsewhere, was started on augmentin and took most of medication before allergic reactionOn PE: normal TMs today- no further tx needed Eruption 963552521 R21 When the patient's allergic drug reaction went away , developed rash on reticular rash on heels, migratory joint pain, rash on palms of hands, and pain/disco loration to a few of her fingers. Was only on steroids at that time from prior allergic reaction.N o one else with similar symptoms. No mouth lesions. No chest pain, SOB or fever.Toda y she is doing well, most of the rash has resolved except for her palms but that too is resolving. Went to three different hospitals for this rash, [facility] did lots of labs and referred her to derm and rheumatolo gy. Derm apt. 10/2022, still waiting to hear from rheumDDx: HFM disease, syphilis, endocardit is, syphilis, viral exanthem- will get records from [facility] and lab results- continue to monitor rash- f/u with Derm Pain in finger 10313825 M79.644 Developed rash on palms of hands, and pain/disco loration to a few of her fingers. Per photos: fingertips looked blue/dusky red colored and pt states they were painful.Co ncern for vasculitis picture, possible allergic vasculitis after PCN allergyFin nathan symptoms have since resolved but patient still wants work-up on arteries- order US, doppler, arterial- will get records from [facility] Tinea corporis 89650252 B35.4 Complainin g of different rash on neck, chest and upper back for prolonged period of time. Pruritic.P E neck: patchy , geographic rash with satellite lesions around neck, chest and posterior aspect of the neck- start ketonazole 2% shampoo to treat- can use selsun blue in the future for maintenanc e to help prevent it from returning Depression screening 171 281611 Z13.31 PHQ 2/9 was negative in office today (0 out of 27) [id number] MD Hannah Browne (Adult Med) [address] [place] [address] [phone] 0 08/17/2023 11:49:17 08/23/2023 17:39:04 Tuberculosis screening 341230092 Z11.1 PPD placed today, RTC in 48 hours for reading Intermitte nt palpitations 964669253 R00.2 BP 118/68, HR 78bpmInter mittent fluttering sensation that occurs mostly at night when sitting and watching TVNo diaphoresi s, no arm pain, no THAPA/blurry vision, no LOC-Will order labs today- will call patient with results-Wi order ECG- will call patient with results-Re ferral to cardiology for evaluation -F/u 6 weeks Body mass index 20-24 - normal 092208297 Z68.22 BMI 22.6 Depression screening 171 694924 Z13.31 PHQ9- {{Negative * Positive Mild Mode rate Sever e}} (0 out of 27) Mental hea lt screening 595286793 Z13.39 GAD7- {{Negative * Positive Mild Mode rate Sever e}} (0 out of 21) [id number] MD Hannah Browne (Adult Med) [address] [place] [address] [phone] 0 08/15/2024 12:02:42 08/22/2024 12:31:23 Tuberculosis screening 389666933 Z11.1 PPD placed today, RTC in 48 hours for reading Health Concerns Section Related Observation LastModified by Organization Detai ls LastModified Time None Recorded Concern Status LastModified by Organization Details LastModified Time None Recorded Advance Directives Directive N: Payers Encounter Date Sequence Insurance Name Policy Number Policy Hicks Covered Member ID Hicks Member ID Guarantor Name 05/04/2022 1 [facility] (MEDICAID HMO) [id number] 0003 Laurel Will [id number] Laurel Will 09/09/2022 1 [facility] (MEDICAID HMO) [id number] 0003 Laurel Will [id number] Laurel Will 09/10/2022 1 [facility] (MEDICAID HMO) [id number] 0003 Laurel Will [id number] Laurel Will 08/17/2023 1 [facility] (MEDICAID HMO) [id number] 0003 Laurel Will [id number] Laurel Will 08/15/2024 1 [facility] (MEDICAID HMO) [id number] 0003 Laurel Will [id number] Laurel Will Notes Date Note Type Note Provider Name and Address Organization Details Recorded Time 09/09/2022 text/html Annual GYNReport ed bypatient.Menstrual cycle:Severe dysmenorrhea Urinary symptoms:No hematuria; No incontinence Vulva:No genital lesion Vagina:Normal vaginal discharge Breast:No breast pain; No breast lump; No nipple discharge Current Contraception: control not practiced Sexual complaints:No sexual complaints; No pain during intercourse Psychological symptoms:No depression; No anxiety Preventive measures:Encourage self breast examination; Encourage regular exercise; Encourage no tobacco use; Followed with Q3 year pap smear and high risk HPV typing 32 yo F, smoker, presents for contraception counseling with c/o dysmenorrhea. Pt reports hx of dysmenorrhea, currently takes ibu with moderate relief of symptoms. Pt states cycle is regular and bleeding lasts from 4-7 days. Denies dysuria, hematuria, dyspareunia, odor, itchiness, discharge, nausea, vomiting, diarrhea, constipation, or breast changes. Declined pap today due to menstrual bleeding, will reschedule. ANITA HARE Attn: Accounting,[address] [facility] [place], [address], [facility] 10/05/2022 15:35:39 09/10/2022 text/html Patient is here for F/u after ER visit for allergic drug reaction. Patient is a 32yo female presenting here today for f/u after ER visit for allergic drug reaction.She had an ear infection on 08/20/22, after which she had an allergic reaction to amoxicillin after 6 days, went to ER, on 08/29/22, she started having rash on body, scalp, face swelling, was itchy, painful, she couldn't breath and had a chest pain for about 2 days with inspiration.She was given steroids, muscle relaxers and Benadryl that have help to resolve the problem.When that went away , rash started on her soles,along with pain, pain moving from ankles to her knees,and other joints in hands, her middle fingers hurt the most and the tips of the finger changed color to purple, and she developed a painful rash on her palms as well. Today she is doing well, most of the rash has resolved except for her palms. [facility] referred her to rheumatology and dermatology, which she has in October.Patient also has a chronic rash almost around her entire neck area, she states her dad has a fungal infection, that looks similar, wanders if it might be the same. Denies fever, chills, nausea, vomiting, headaches, chest pain, SOB, abdominal pain, diarrhea, constipation, or dysuria. ANITA TREJO Attn: Accounting[address] [facility], [place], [address], [facility] 09/10/2022 21:41:16 08/17/2023 text/html 33-year-old female here to establish care. Patient is c/o heart palpitations x 1 month. States they occur at night when she is laying down watching TV. She states that she has had a workup for this before and nothing was found. Denies pain to chest, describes it as a fluttering/movement sensation. Denies diaphoresis, SOB, or pain radiating to arms. Denies THAPA, blurry vision, or N/V/D.Patient also needs PPD for work and a form signed for her to not get a mandatory flu vaccine. ISAAC TENORIO PA-C Attn: Accounting[address] , [place], [address], [place] [facility] 08/17/2023 12:41:57 OBGyn Episode Ob Episode Information Episode Created Date Number of Fetuses Patient Bloodtype Patient rh Status Prepregnancy Weight lbs Domestic Partner Domestic Partner Phone Father Name Primer Waterproofing Machine Adjuster Status 05/22/20 19 1 O Negative 125 CLOSED Fetus Data First Name Last Name Admitted to NICU Weight (g) Sex Living Outcome Pediatric Complications Fetus ID Race Codes Race Delivery Type Gerardo urrutia Deonna Click false 2180.09 88793 F true Full Term 68588 2106-3 White Vaginal Problems Problem Notes , if boy yes to circ, Primer Waterproofing Machine Adjuster Dr. Lopez (maybe), yes to epidural, no PPBC girl per ultrasound. Pebbles Ying Click is baby's name. pattern technician still to be decided, keshav hernandez 11/13/2019 mds DELIVER AT [facility]. RECORDS RELEASE SIGNED TODAY 11/13/2019 [facility]OR[facility] FOR BABY'S THEME ROOM. 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 240313272 Fibrocystic disease of breast 10/05/19 19 09941213 Glucose tolerance test during - baby not yet delivered outside reference range 10/19/19 20 065732309 Ultrasound scan abnormal 08/08/19 20 119484826 echogenic focus of left ventricle Breech presentation 11/13/19 20 0676851 Smoker 10/17/19 20 10941279 growth restriction 70583 007 Rufino Calculation Initial Rufino Date Initial Exam Date Initial Exam Provider Initial Ultrasound Date Last Menstrual Period Date Ultra Sound Weeks Gestation 01/08/2020 05/22/2019 deanne 06/14/2019 03/31/2019 10 Eighteen To Twenty Week Rufino Update Ultra Sound Date Fundal Height At Umbil Quickening Date Ultra Sound Latest Weeks Gestation Final Rufino Confirmed By Final Rufino Confirmed Date Final Rufino Date Ultra Sound Latest Days Gestation 06/14/20 19 10 deanne 06/20/2019 06/29/2 020 2 Pre- Flowsheet Flowsheet Date 05/22/2019 Kessler Score Blood Edema Fundus Height Fundus Units Glucose Ketones Leukocytes Nitrite Labor Signs Protein Cervic Dilation Cervic Effacement Cervic Station trace none 7 wks none negative neg Type Weight in lbs Pre/Post Dialysis Refused Weight 125.867605802393 BP Diastolic BP Location Tested BP Systolic BP Type 60 110 sitting Fetus Heart Rate Present Fetus Movement Comments NOB Flowsheet Date 06/02/2019 Kessler Score Blood Edema Fundus Height Fundus Units Glucose Ketones Leukocytes Nitrite Labor Signs Protein Cervic Dilation Cervic Effacement Cervic Station Type Weight in lbs Pre/Post Dialysis Refused BP Diastolic BP Location Tested BP Systolic BP Type Fetus Heart Rate Present Fetus Movement Comments Flowsheet Date 06/19/2019 Kessler Score Blood Edema Fundus Height Fundus Units Glucose Ketones Leukocytes Nitrite Labor Signs Protein Cervic Dilation Cervic Effacement Cervic Station trace none 11 wks none negative none neg Type Weight in lbs Pre/Post Dialysis Refused Weight 127.481563941649 BP Diastolic BP Location Tested BP Systolic BP Type 60 102 sitting Fetus Heart Rate Present A 135 Present Fetus Movement A No Comments repeat us next mo afp next Flowsheet Date 06/30/2019 Kessler Score Blood Edema Fundus Height Fundus Units Glucose Ketones Leukocytes Nitrite Labor Signs Protein Cervic Dilation Cervic Effacement Cervic Station Type Weight in lbs Pre/Post Dialysis Refused With clothes 130.587064478749 BP Diastolic BP Location Tested BP Systolic BP Type Fetus Heart Rate Present Fetus Movement Comments Flowsheet Date 07/20/2019 Kessler Score Blood Edema Fundus Height Fundus Units Glucose Ketones Leukocytes Nitrite Labor Signs Protein Cervic Dilation Cervic Effacement Cervic Station trace none 15 wks none negative none neg Type Weight in lbs Pre/Post Dialysis Refused Stated 130.730331509569 BP Diastolic BP Location Tested BP Systolic BP Type 70 103 sitting Fetus Heart Rate Present A 142 Present Fetus Movement Comments B12 inj. and AFP on 07/31/19. Flowsheet Date 07/24/2019 Kessler Score Blood Edema Fundus Height Fundus Units Glucose Ketones Leukocytes Nitrite Labor Signs Protein Cervic Dilation Cervic Effacement Cervic Station Type Weight in lbs Pre/Post Dialysis Refused Weight 133.800101628496 BP Diastolic BP Location Tested BP Systolic BP Type 56 96 sitting Fetus Heart Rate Present Fetus Movement Comments Flowsheet Date 07/26/2019 Kessler Score Blood Edema Fundus Height Fundus Units Glucose Ketones Leukocytes Nitrite Labor Signs Protein Cervic Dilation Cervic Effacement Cervic Station Type Weight in lbs Pre/Post Dialysis Refused BP Diastolic BP Location Tested BP Systolic BP Type Fetus Heart Rate Present Fetus Movement Comments Flowsheet Date 07/28/2019 Kessler Score Blood Edema Fundus Height Fundus Units Glucose Ketones Leukocytes Nitrite Labor Signs Protein Cervic Dilation Cervic Effacement Cervic Station Type Weight in lbs Pre/Post Dialysis Refused With clothes 132.514725206909 BP Diastolic BP Location Tested BP Systolic BP Type Fetus Heart Rate Present Fetus Movement Comments Flowsheet Date 08/22/2019 Kessler Score Blood Edema Fundus Height Fundus Units Glucose Ketones Leukocytes Nitrite Labor Signs Protein Cervic Dilation Cervic Effacement Cervic Station trace none 20 cm none negative none neg Type Weight in lbs Pre/Post Dialysis Refused BP Diastolic BP Location Tested BP Systolic BP Type 56 96 sitting Fetus Heart Rate Present A 143 Present Fetus Movement A Yes Comments Flowsheet Date 09/19/2019 Kessler Score Blood Edema Fundus Height Fundus Units Glucose Ketones Leukocytes Nitrite Labor Signs Protein Cervic Dilation Cervic Effacement Cervic Station trace none 22 cm none negative Cramping neg Type Weight in lbs Pre/Post Dialysis Refused Weight 139.754101559207 BP Diastolic BP Location Tested BP Systolic BP Type 50 92 sitting Fetus Heart Rate Present A 150 Present Fetus Movement A Yes Comments Banana therapy- 1 banana in the morning and 1 before bed, OB/FU next visit Flowsheet Date 10/17/2019 Kessler Score Blood Edema Fundus Height Fundus Units Glucose Ketones Leukocytes Nitrite Labor Signs Protein Cervic Dilation Cervic Effacement Cervic Station neg none 28 cm none negative none neg Type Weight in lbs Pre/Post Dialysis Refused With clothes 145.3223093376 BP Diastolic BP Location Tested BP Systolic BP Type 60 100 sitting Fetus Heart Rate Present A 134 Present Fetus Movement A Yes Comments gtt, tdap , b12, rhogam, gtt , usPatient notified about [facility], and on diversion. Patient was given options for delivery and chose to deliver at [facility]. Information given, phone number, sent. 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 DEL @SS Flowsheet Date 11/15/2019 Kessler Score Blood Edema Fundus Height Fundus Units Glucose Ketones Leukocytes Nitrite Labor Signs Protein Cervic Dilation Cervic Effacement Cervic Station neg none 30 cm none negative none neg Type Weight in lbs Pre/Post Dialysis Refused With clothes 147.778907387100 BP Diastolic BP Location Tested BP Systolic BP Type 60 112 sitting Fetus Heart Rate Present A 144 Present Fetus Movement A Yes Comments FGR 5tH% [facility] BPP10/10 STEROI DS GIVEN 11/14 AND 11/16 Flowsheet Date 11/16/2019 Kessler Score Blood Edema Fundus Height Fundus Units Glucose Ketones Leukocytes Nitrite Labor Signs Protein Cervic Dilation Cervic Effacement Cervic Station neg none 32 wks none negative none neg Type Weight in lbs Pre/Post Dialysis Refused With clothes 147.315214440432 BP Diastolic BP Location Tested BP Systolic BP Type 60 110 sitting Fetus Heart Rate Present A 154 Present Fetus Movement A Yes Comments second dose of betamethasone to accelerate lung maturity for severe FGRrepeat doppler flow studies / bpp Thursday 11/16 [facility] for change in baby activity Flowsheet Date 11/21/2019 Kessler Score Blood Edema Fundus Height Fundus Units Glucose Ketones Leukocytes Nitrite Labor Signs Protein Cervic Dilation Cervic Effacement Cervic Station Type Weight in lbs Pre/Post Dialysis Refused With clothes 149.549919004432 BP Diastolic BP Location Tested BP Systolic BP Type Fetus Heart Rate Present Fetus Movement Comments b12 inj Flowsheet Date 12/06/2019 Kessler Score Blood Edema Fundus Height Fundus Units Glucose Ketones Leukocytes Nitrite Labor Signs Protein Cervic Dilation Cervic Effacement Cervic Station neg none 29 cm none negative Uterine Contract ions neg 0cm 0% -4 Type Weight in lbs Pre/Post Dialysis Refused With clothes 149.256775381360 BP Diastolic BP Location Tested BP Systolic BP Type 56 94 sitting Fetus Heart Rate Present A 147 Present Fetus Movement A Yes Comments Complete transfer of care to [facility] FGR severe needs to be eval for delivery Flowsheet Date 01/30/2020 Kessler Score Blood Edema Fundus Height Fundus Units Glucose Ketones Leukocytes Nitrite Labor Signs Protein Cervic Dilation Cervic Effacement Cervic Station Type Weight in lbs Pre/Post Dialysis Refused With clothes 136.132771612494 BP Diastolic BP Location Tested BP Systolic BP Type Fetus Heart Rate Present Fetus Movement Comments Menstrual History Last Menstrual Date Menses Monthly On Bcp Conception Prior Menses Frequency Hcg Plus Date Menarche Onset Age 0903/31/2019 false Genetic Screening And Infection History Question Response Note Patient's Age Will Be 35 Yea rs Or Older At Estimated Date of Delivery false Thalassemia (Iraqi, Croatian, Mediterranean, Or Background): MCV < 80 true Iraqi Neural Tube Defect (Meningomyelocele, Spina Bifi da, Or Anencephaly) false Congenital Heart Defect false Down Syndrome false Sarmad-Sachs (eg, Methodist, Cajun, Indonesian-Northern Irish) f alse Kory Disease false Sickle Cell Disease Or Trait () false Hemophilia Or Other Blood Disorders false Muscular Dystrophy false Cystic Fibrosis false Laurens's Chorea false Mental Retardation/Autism false If Yes, Was Person Tested For Fragile X? false Other Inherited Genetic Or Chromosomal Disorder true MTHFR Maternal Metabolic Disorder (eg, Type 1 Diabetes , PKU) false Patient Or Baby's Father Had A Child With Defects Not Listed Above false Recurrent Loss, Or A Stillbirth false Medications (including Suppl ements, Vitamins, Herbs, OTC Drugs), Illicit/Recreational Drugs, Alcohol false If Yes, Agent(s) And Strength/Dosage false Any Other Genetic History false Live With Someone With TB Or Exposed To TB false Patient Or Partner Has History Of Genital Herpes false Rash Or Viral Illness Since Last Menstrual Perio d false History Of STD, Gonorrhea, Chlamydia, HPV, Syphi lis false Other Infection History false History of HIV false History of Hepatitis false Prior GBS-infected child false Plans and Education First Trimester Discussed Date Discussion Item Discussion Note Discuss ed By 06/02/2019 Anticipated course o f care discussed at [facility] WEEK[facility] NST BPP [facility] 06/02/2019 Nutrition counseling ; special diet; dietary precautions (mercury, listeriosis) discussed at [facility] 06/02/2019 HIV and other routin e tests discussed at [facility] 06/02/2019 Exercise discussed at [facility] 06/02/2019 Use of any medicatio ns (including supplements, vitamins, herbs, or OTC drugs) discussed at [facility]/2019 discussed at [facility] 06/02/2019 Dental care discussed at [facility] 06/02/2019 Travel discussed at [facility] 06/02/2019 Seat belt use discussed at [facility] Second Trimester Discussed Date Discussion Item Discussion Note Discuss ed By 06/02/2019 Selecting a care provider discuss ed at [facility] 06/02/[address]ning/tubal sterilization discussed at [facility] N[facility] 06/02/2019 Signs and symptoms o f labor discussed at [facility] Third Trimester Discussed Date Discussion Item Discussion Note Discuss ed By 06/02/2019 Anesthesia plans discussed at [facility] YES [facility] 06/02/2019 Circumcision discussed at [facility] 11/13/2019 movement monitoring GIVEN KICK COUN TS [email or web address] 06/02/2019 discussed at [facility] 11/13/2019 Labor signs WTC/WLB msisontn Trial of labor after (TOLAC) counseling N/A Delivery Information Delivery Date Delivery Type Labor Anesthesia Weeks Gestation Incision Type Labor Labor Length Hrs Delivered By Post Complications Tubal Sterilization Discharge Date Comments 0 Induce d Regional-Ep idural 38 Hemorrhage false 12/28/2019 re tained placenta, removed at bedside Discharge Information Feeding Method Contraceptive Method Maternal HG B and HCT Levels Bottle bcp Ob Episode Information Episode Created Date Number of Fetuses Patient Bloodtype Patient rh Status Prepregnancy Weight lbs Domestic Partner Domestic Partner Phone Father Name Primer 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 , PPBC some type of pill. to be decided NE 0.35mg. Problem Name Start Date End Date Resolution Snomed Code Not e Vitamin D deficiency 80151734 Group B Streptococcus carrier [id number] 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 [id number] Hyperemesis [id number] Upper respiratory infection 54 [id number] state [id number] Rufino Calculation Initial Rufino Date Initial Exam Date Initial Exam Provider Initial Ultrasound Date Last Menstrual Period Date Ultra Sound Weeks Gestation 09/19/2015 02/26/2015 [facility] 02/18/2015 12/10/2014 9 Eighteen To Twenty Week Rufino Update Ultra Sound Date Fundal Height At Umbil Quickening Date Ultra Sound Latest Weeks Gestation Final Rufino Confirmed By Final Rufino Confirmed Date Final Rufino Date Ultra Sound Latest Days Gestation 02/19/[address] [facility] 03/27/2015 016 4 Pre-tony Flowsheet Flowsheet Date 02/26/2015 Kessler Score Blood Edema Fundus Height Fundus Units Glucose Ketones Leukocytes Nitrite Labor Signs Protein Cervic Dilation Cervic Effacement Cervic Station Type Weight in lbs Pre/Post Dialysis Refused 130.663344795966 BP Diastolic BP Location Tested BP Systolic BP Type 56 98 sitting Fetus Heart Rate Present Fetus Movement Comments Flowsheet Date 03/15/2015 Kessler Score Blood Edema Fundus Height Fundus Units Glucose Ketones Leukocytes Nitrite Labor Signs Protein Cervic Dilation Cervic Effacement Cervic Station Type Weight in lbs Pre/Post Dialysis Refused BP Diastolic BP Location Tested BP Systolic BP Type Fetus Heart Rate Present Fetus Movement Comments Flowsheet Date 03/27/2015 Kessler Score Blood Edema Fundus Height Fundus Units Glucose Ketones Leukocytes Nitrite Labor Signs Protein Cervic Dilation Cervic Effacement Cervic Station trace none 14 wks none negative none neg Type Weight in lbs Pre/Post Dialysis Refused 131.410789197764 BP Diastolic BP Location Tested BP Systolic BP Type 58 102 sitting Fetus Heart Rate Present A 152 Present Fetus Movement A No Comments Flowsheet Date 04/24/2015 Kessler Score Blood Edema Fundus Height Fundus Units Glucose Ketones Leukocytes Nitrite Labor Signs Protein Cervic Dilation Cervic Effacement Cervic Station neg none 20 cm none negative none neg Type Weight in lbs Pre/Post Dialysis Refused 136.035434475547 BP Diastolic BP Location Tested BP Systolic BP Type 58 116 sitting Fetus Heart Rate Present A 150 Present Fetus Movement A No Comments Flowsheet Date 05/22/2015 Kessler Score Blood Edema Fundus Height Fundus Units Glucose Ketones Leukocytes Nitrite Labor Signs Protein Cervic Dilation Cervic Effacement Cervic Station trace none 22 wks none negative none neg Type Weight in lbs Pre/Post Dialysis Refused 142.807234040823 BP Diastolic BP Location Tested BP Systolic BP Type 50 96 sitting Fetus Heart Rate Present A 135 Present Fetus Movement A Yes Comments Flowsheet Date 06/19/2015 Kessler Score Blood Edema Fundus Height Fundus Units Glucose Ketones Leukocytes Nitrite Labor Signs Protein Cervic Dilation Cervic Effacement Cervic Station neg none 26 cm none negative none neg Type Weight in lbs Pre/Post Dialysis Refused 150.648431628978 BP Diastolic BP Location Tested BP Systolic BP Type 60 100 sitting Fetus Heart Rate Present A 135 Present Fetus Movement A Yes Comments 28 week labs, Rho JOSESITO at [facility], us 2 weeks, rto 4 weeks tdap today Flowsheet Date 07/17/2015 Kessler Score Blood Edema Fundus Height Fundus Units Glucose Ketones Leukocytes Nitrite Labor Signs Protein Cervic Dilation Cervic Effacement Cervic Station trace none 30 cm none negative none 1+ Type Weight in lbs Pre/Post Dialysis Refused 154.800704835792 BP Diastolic BP Location Tested BP Systolic BP Type 58 102 sitting Fetus Heart Rate Present A 135 Present Fetus Movement A Yes Comments Flowsheet Date 07/31/2015 Kessler Score Blood Edema Fundus Height Fundus Units Glucose Ketones Leukocytes Nitrite Labor Signs Protein Cervic Dilation Cervic Effacement Cervic Station trace none 32 cm none negative none neg Type Weight in lbs Pre/Post Dialysis Refused 159.133366148883 BP Diastolic BP Location Tested BP Systolic BP Type 60 108 sitting Fetus Heart Rate Present A 141 Present Fetus Movement A Yes Comments Rib pain Flowsheet Date 08/14/2015 Kessler Score Blood Edema Fundus Height Fundus Units Glucose Ketones Leukocytes Nitrite Labor Signs Protein Cervic Dilation Cervic Effacement Cervic Station neg trace 35 cm none negative none neg 0cm 0% -4 Type Weight in lbs Pre/Post Dialysis Refused 164.47133741797 BP Diastolic BP Location Tested BP Systolic BP Type 62 98 sitting Fetus Heart Rate Present A 137 Present Fetus Movement A Yes Comments Flowsheet Date 08/28/2015 Kessler Score Blood Edema Fundus Height Fundus Units Glucose Ketones Leukocytes Nitrite Labor Signs Protein Cervic Dilation Cervic Effacement Cervic Station neg 2+ 35 cm none negative none neg 0cm 0% - 4 Type Weight in lbs Pre/Post Dialysis Refused 169.920060589863 BP Diastolic BP Location Tested BP Systolic BP Type 76 110 sitting Fetus Heart Rate Present A 140 Present Fetus Movement A Yes Comments Flowsheet Date 09/04/2015 Kessler Score Blood Edema Fundus Height Fundus Units Glucose Ketones Leukocytes Nitrite Labor Signs Protein Cervic Dilation Cervic Effacement Cervic Station neg trace 35 cm none negative none neg 0cm 0% -4 Type Weight in lbs Pre/Post Dialysis Refused 176.840026168228 BP Diastolic BP Location Tested BP Systolic BP Type 70 114 sitting Fetus Heart Rate Present A 135 Present Fetus Movement A Yes Comments Flowsheet Date 09/11/2015 Kessler Score Blood Edema Fundus Height Fundus Units Glucose Ketones Leukocytes Nitrite Labor Signs Protein Cervic Dilation Cervic Effacement Cervic Station neg 38 cm none negative none trace 0cm 0% -4 Type Weight in lbs Pre/Post Dialysis Refused 176.392409619533 BP Diastolic BP Location Tested BP Systolic BP Type 62 118 Fetus Heart Rate Present A 132 Present Fetus Movement A Yes Comments Floating presentation. Check results of pelvic index to determine MIL vs . Menstrual History Last Menstrual Date Menses Monthly On Bcp Conception Prior Menses Frequency Hcg Plus Date Menarche Onset Age 0612/10/2014 true false 30 201 5 13 Genetic Screening And Infection History Question Response Note Patient's Age Will Be 35 Yea rs Or Older At Estimated Date of Delivery false Thalassemia (Iraqi, Croatian, Mediterranean, Or Background): MCV < 80 false Neural Tube Defect (Meningom yelocele, Spina Bifida, Or Anencephaly) false Congenital Heart Defect false Down Syndrome false Sarmad-Sachs (eg, Methodist, Cajun, Indonesian-Northern Irish) f alse Kory Disease false Sickle Cell Disease Or Trait () false Hemophilia Or Other Blood Disorders false Muscular Dystrophy false Cystic Fibrosis false Laurens's Chorea false Mental Retardation/Autism false If Yes, Was Person Tested For Fragile X? false Other Inherited Genetic Or Chromosomal Disorder false Maternal Metabolic Disorder (eg, Type 1 Diabetes , PKU) false Patient Or Baby's Father Had A Child With Defects Not Listed Above false Recurrent Loss, Or A Stillbirth false Medications (including Suppl ements, Vitamins, Herbs, OTC Drugs), Illicit/Recreational Drugs, Alcohol true v itamin If Yes, Agent(s) And Strength/Dosage false Any Other Genetic History false Live With Someone With TB Or Exposed To TB false Patient Or Partner Has History Of Genital Herpes false Rash Or Viral Illness Since Last Menstrual Perio d false History Of STD, Gonorrhea, Chlamydia, HPV, Syphi lis false Other Infection History true +GBS Plans and Education First Trimester Discussed Date Discussion Item Discussion Note Discuss ed By 03/15/2015 Anticipated course o f care [email or web address] 03/15/2015 Alcohol Denies [email or web address] 03/15/2015 Intimate partner violence tomas [email or web address] 03/15/2015 Environmental/work hazards j 03/15/2015 Screening for aneuploidy [email or web address] 03/15/2015 Nutrition counseling ; special diet; dietary precautions (mercury, listeriosis) [email or web address] 03/15/2015 Childbirth classes/h ospital facilities [facility] class info given. [email or web address] 03/15/2015 HIV and other routin e tests [email or web address] 03/15/2015 Risk factors identif ied by history [email or web address] 03/15/2015 Weight gain counseling brody ett203/15/2015 Exercise [email or web address] 03/15/2015 Teratogens [id number] 03/15/2015 Use of any medicatio ns (including supplements, vitamins, herbs, or OTC drugs) [email or web address] 03/15/2015 Breast [email or web address] 03/15/2015 Sexual activity [email or web address] 03/15/2015 Tobacco/smoking cess ation counseling (ask, advise, assess, assist, and arrange) [place] [address] 03/15/2015 Illicit/recreational drugs Denies j [email or web address] 03/15/2015 Dental care [email or web address] 03/15/2015 Travel [email or web address] 03/15/2015 Seat belt use [place] [address] 03/15/2015 Indications for ultrasonography [place] [address] 03/15/2015 Avoidance of saunas or hot tubs [place] [address] 03/15/2015 Toxoplasmosis precau tions (cats/raw meat) [place] [address] Second Trimester Discussed Date Discussion Item Discussion Note Discuss ed By 06/19/2015 Selecting a care provider Virgil leivne [facility] 06/19/[address] anning/tubal sterilization [facility] 06/19/2015 Depression screening (when indicated) [facility] 06/19/2015 Abnormal lab values [facility] 06/19/2015 Signs and symptoms of labor [facility] 06/19/2015 Intimate partner violence [facility] 06/19/2015 Tobacco/smoking cess ation counseling (ask, advise, assess, assist, and arrange) [facility] Third Trimester Discussed Date Discussion Item Discussion Note Discuss ed By 06/19/2015 Intimate partner violence [facility] 06/19/[address] [facility] 06/19/2015 education (n ewborn screening, jaundice, SIDS/safe sleeping position, car seat) [facility] 06/19/[address] [facility] 06/19/2015 Postterm counseling [facility] 06/19/[address] [facility] 06/19/[address] [facility] 06/19/[address] [facility] 06/19/2015 depression [facility] 06/19/2015 Family medical leave or disability forms [facility] 06/19/2015 Tobacco/smoking cess ation counseling (ask, advise, assess, assist, and arrange) [facility] 06/19/2015 Trial of labor after (TOLAC) counseling [facility] 06/19/2015 Signs and symptoms of preeclampsia [facility] Delivery Information Delivery Date Delivery Type Labor Anesthesia Weeks Gestation Incision Type Labor Labor Length Hrs Delivered By Post Complications Tubal Sterilization Discharge Date Comments 6 Sponta neous Regional-Ep idural 39.1 false 8 Srinath Womack MD None false 09/15/2015 Discharge Information Feeding Method Contraceptive Method Maternal HG B and HCT Levels Combination Norethindrone
--- OUTSIDE RECORDS SUMMARY | 2024-11-21 19:23 | XMS_ITS | CONTINUITY OF CARE DOCUMENT ---
Author Name vianney faith Address Unknown Organization [facility] Address [address] [place] [address] Phone [phone] Care Team Providers Care Machine Staker Name Role Phone Andrew COBIAN, Brad Unavailable [phone] Isaac Dorsey Unavailable [phone] Isaac Dorsey Unavailable [phone] PROBLEMS Condition Status Date Provider Notes Palpitations active Brad Morales MD Orthostatic dizziness active Brad Morales MD Anemia, iron deficiency active Virginia Venti miglia MUSIC COMPOSER Tobacco abuse active Virginia Ventimiglia MUSIC COMPOSER ENCOUNTERS Date Type Provider Location Encounter Diag nosis - In-person encounter Office Visit Brad Morales MD [facility] Anemia, iron deficiencyTobacco abuse - In-person encounter Office Visit Brad Morales MD [facility] - In-person encounter Office Visit Brad Morales MD [facility] PalpitationsOrthostatic dizziness VITAL SIGNS Date Observation Value Provider Body Mass Index (Ratio) 22.71 kg/m2 Rod Morales MD blood pressure, cuff size regular Ja rret blood pressure, diastolic 70 mm[Hg] Ja rret blood pressure, systolic 105 mm[Hg] Jar ret pulse rate 67 /min Julio oxygen saturation, oximetry 98 % respiratory rate E&M 12 /min weight E&M 145 [lb_av] Julio y height E&M 67 [in_i] Julio y Body Mass Index (Ratio) 21.77 kg/m2 Rod Morales MD blood pressure, diastolic 57 mm[Hg] Sa ra Parker blood pressure, systolic 95 mm[Hg] Solange a Parker oxygen saturation, oximetry 98 % Maegan Parker respiratory rate E&M 20 /min Maegan Si ms pulse rate 83 /min Maegan Parker blood pressure, cuff size regular Sa ra Parker weight E&M 139 [lb_av] Maegan Parker height E&M 67 [in_i] Maegan Parker Body Mass Index (Ratio) 21.61 kg/m2 Rod Morales MD blood pressure, diastolic 65 mm[Hg] Li nkLogic blood pressure, systolic 103 mm[Hg] Guadalupe kLogic blood pressure, diastolic 65 mm[Hg] Ca therine Von blood pressure, systolic 103 mm[Hg] Cat herine Baldwin oxygen saturation, oximetry 99 % Nadine Baldwin respiratory rate E&M 14 /min Catheri ne Von pulse rate 82 /min Nadine Baldwin weight E&M 138 [lb_av] Nadine Von height E&M 67 [in_i] Nadine Baldwin ALLERGIES Allergy Name Onset Date Reaction Criticality Status AMOXICILLIN Low Criticality active HISTORY OF MEDICATION USE Medication Status Instructions Dates Provider Indications Com ments Iron (ferrous sulfate) 325 mg (65 mg iron) tablet active TAKE 1 TABLET BY MOUTH EVERY DAY [facility] ibuprofen 800 mg tablet active Take as needed SOCIAL HISTORY Date Observation Value Provider smoking/tobacco cess ation, patient education and counseling yes Virginia Fieldsmiglia [facility] alcohol use, average drinks per day social Virginia Ventimiglia [facility] personal history of marijuana use no Virginia Ventimiglia [facility] drug use no Virginia Ventimig sylvie [facility] alcohol use yes Virginia Ventimig sylvie [facility] passive cigarette sm mert exposure no Virginia Ventimiglia [facility] number of years as a smoker 10 years Virginiaharley Fieldsmiglia [facility] smoking history, tot al pack/day 1/2 pack Virginia Ventimiglia [facility] cigarette use yes Virginiaharley Fieldsmi glia [facility] smoking status Current every day smoker A damonkizzy Galiciaglia [facility] social history reviewed E&M revi ewed - no changes required Brad Morales MD passive cigarette sm mert exposure no Brad Morales MD social history reviewed E&M revi ewed - no changes required Brad Morales MD social history E&M Marital Statu s: Engaged C waqaren: 2 O ccupation: [employer] Smoking History: P atient currently smokes every day. Brad Morales MD number of years as a smoker 10 years Nadine Baldwin smoking history, tot al pack/day 1/2 pack Nadine Baldwin cigarette use yes Nadine Baldwin smoking status Current every day smoker C atherine Baldwin FAMILY HISTORY Family Member Condition Father Aortic Aneurysm INSURANCE PROVIDERS Payer name Policy type / Coverage type [place] [employer] [place] party ID [place] Medicaid [id number] ADVANCE DIRECTIVES Name Date DISCUSSED - NO DECISION MADE TREATMENT PLAN Date Name Performer [id number],B,E CHO and event monitor normal. Patient symptoms have resolved. No further testing needed and no f/u at this time. Brad Morales MD [id number],B, Brad vicente MD [id number],C,Telesentry Ra benjamin Morales MD [id number],N,Likely volume depletion. Brad Morales MD Cardiology:cessation encouraged. Virginia Echeverria [facility] Cardiology:will star t replacement therapy O rders: 9 9214 MOD 30-39min (CPT-12635) C BC (INCLUDES DIFF/PLT) (6399) F ERRITIN (457) I MEHREEN AND TOTAL IRON BINDING CAPACITY (7573) Virginiaharley Echeverria [facility] Cardiology:Has recur rent episodes occuring 1-3 times a month, lasting less than 2 minutes at a time s he had tele 2 years ago with no arrythmia n ormal echo at that time S he however, had labs that showed iron deficiency anemia, will update iron studies W ill begin replacement therapy and f/u in 3 mos or sooner if needed. Virginia Echeverria [facility] Cardiology:ECHO and event monitor normal. Patient symptoms have resolved. No further testing needed and no f/u at this time. Brad Morales MD Cardiology Brad Morales MD Cardiology:Telesentry Brad estrada MD Cardiology:Likely volume depleti on. Brad Morales MD Date Name IRON AND TOTAL IRON BINDING CAPACITY FERRITIN CBC (INCLUDES DIFF/P LT) Monitor - Telemetry (Mobile Cardiac) Complete Echo HISTORY OF PROCEDURES Procedure Date Procedure Name Provider Procedure Notes S tatus EKG Brad Morales MD complete d EKG Brad Morales MD complete d
--- OUTSIDE RECORDS SUMMARY | 2024-11-21 19:23 | XMS_ITS | Clinical Summary ---
Author Organization [facility] Address [address] [place] [address] Care Team Providers Care English Instructor Name Role Phone Mariaelena Garduno MD Primary Care Provider Source Comments [facility],non-owned Affiliates and Associated Physician Practices is amultiple site organization consisting of ambulatory clinics and hospital sitesin [place], [place], [place] and [place]. This disclosure is being madepursuant to the Care Everywhere program and may not contain all information available regarding this patient. Last updated [employer] [facility] Allergies No known active allergies Medications * Be aware that medications may not be up to date on this document. Alwaysverify current medications with the patient. vitamin D3 (CHOLECALCIFER OL) 25 MCG (1000 UNITS) tablet Take 1,000 Units by mouth once daily Active cyanocobalamin (VITAMIN B-12) injection Inject into muscle every 30 days Active ondansetron, disintegrating , (ZOFRAN ODT) 4 MG tablet Take 1 tablet by mouth every 6 hours as needed for Nausea/Vomiting Allow tablet to dissolve on the tongue 10 tablet 0 Active Additional Information Patient not taking.Reported on 12/06/2019 ferrous sulfate 325 (65 FE) MG tabletIndicati ons: state (HCC) Take 1 tablet by mouth once daily 30 tablet 1 0 Active Vit-Fe Fumarate-FA ( VITAMIN) 28-0.8 MG tabletIndicati ons: Take 1 tablet by mouth once daily Reasons: 30 tablet 3 0 Active acetaminophen (TYLENOL) 325 MG tabletIndicati ons: state (HCC) Take 2 tablets by mouth every 6 hours as needed Maximum allowable Acetaminophen amount = 4 Grams (4000 mg) / 24 hours. 30 tablet 1 0 Active docusate sodium (COLACE) 100 MG capsuleIndicat ions:Postpartu m state (HCC) Take 1 capsule by mouth 2 times daily 60 capsule 1 0 Active ibuprofen (MOTRIN) 600 MG tabletIndicati ons: state (HCC) Take 1 tablet by mouth every 6 hours as needed for Pain 40 tablet 0 Active Active Problems Patient Care Coordination No te Formatting of this note migh t be different from the original. [facility] 02/2015 [employer] form completed. Diapers given. 12/01/2019 Problem Noted Date Diagnosed Date Supervision of high risk in third trim radha 12/13/2019 Rh negative status during 12/13/2019 Smoking (tobacco) complicati ng , unspecified trimester 11/01/2019 Assessment & Plan (11/01/2019 12:03 PM CDT): Reports that she has cut down but still continues to smoke. Has nicotine replacement gum. Maternal Medicine recommendations: 1. complete smoking cessation 2. Resolved Problems Problem Noted Date Diagnosed Date Resolved Date Uterine contractions during 12/06/2019 12/06/2019 Threatened labor, third trimester 12/04/2019 12/04/2019 Poor growth affecting management of mother, antepartum 11/01/2019 12/26/2019 Overview (12/01/2019): Patient on my NEW OB schedule but is continuing her care with Anna. Reports nl GTT, no medical problems. Infant being followed for surveillance and growth. Counseled re importance of ongoing surveillance. Per discussion with patient did not do a formal visit today as she has ongoing, established care. She had a formal consult with Dr. Merino in October. Assessment & Plan (11/01/2019 12:07 PM CDT): Severe growth restriction (FGR) is a risk factor for adverse obstetric outcomes such as placental abruption, delivery, and and demise. The incidence of terminal gauger supervisor health conditions and neurodevelopmental delay can also be increased in fetuses with severe growth restriction. Potential etiologies of the current growth lag include: constitutionally small fetus, placental insufficiency, aneuploidy or another genetic condition, and transplacental infection. There is also increased concern for the development of preeclampsia and monitoring for this condition is warranted. In diagnosing growth restriction by ultrasound, abdominal circumference less than the 10th percentile has the greatest sensitivity and estimated weight less than the 3rd percentile has the greatest specificity. When the estimated weight is less than the 10th percentile and there are abnormal changes in the umbilical or middle cerebral artery, this has greatest specificity for adverse outcomes. growth restriction can be early onset (before 31 weeks) or late onset (after 31 weeks). Early onset FGR is associated with a greater degree of vascular abnormality in both the maternal and compartments of the placenta. Early onset can have a quicker deterioration pattern, that is usually characterized by the following sequential abnormal changes: abnormal umbilical artery Doppler, brain sparing, abnormal venous Dopplers, abnormal non-stress test and finally abnormal biophysical profile (5 component exam). I discussed that if there are no additional complications of growth restriction (for example abnormal surveillance or concerning Doppler changes) that delivery at 39 weeks is the appropriate management for this complication of . If there are additional complications that arise in this , earlier delivery may be indicated. Maternal Medicine recommendations: 1. complete smoking cessation 2. Orders given for CMV and toxoplasma studies (IgG IgM) 1. to be at office of the referring culinary director 3. weekly BPP/NST and Doppler 4. delivery initiation in the 39 week unless earlier delivery is indicated by any of the followin. oligohydramnios (as defined by a deepest vertical pocket less than 2 cm) 2. significantly abnormal umbilical artery Doppler changes 3. or decreased movement 5. Would benefit from Encounter for anatomic survey 08/16/2019 11/01/2019 Overview (08/16/2019): Echogenic focus left ventricle Uncertain dates, antepartum 02/18/2015 11/01/2019 Erythema infectiosum complicating 02/12/2015 11/01/2019 Overview (02/18/2015): Exposed but not symptomatic And evidence of prior esposure with immunity Supervision of normal first 02/12/2015 11/01/2019 Overview (11/01/2019): O- Neg/ Immune/ rpr- ? /HIV-NR/ Hbsag-NR Quad-Neg 1 hr GCT 159 3 hr GCT 76,132,128,117 [id number] Immunizations Immunization Administration Dates Next Due MMR 12/26/2019() Rho D Immune Globulin 12/26/2019(Deferred: - Inf ant O-) TDAP (7yrs+) 12/26/2019(),11/03/2019 Family History Medical History Relation Name Comments Diabetes Father Cancer Mother Diabetes Mother Cancer Paternal Grandmother Asthma Neg Hx CVA Neg Hx Cancer - Breast Neg Hx Cancer - Other Neg Hx Cancer - Skin, Melanoma Neg Hx Cancer - Skin, Non Melanoma Neg Hx Eczema Neg Hx Hemophilia Neg Hx Psoriasis Neg Hx Relation Name Status Comments Father Mother Paternal Grandmother Social History Tobacco Use Types Packs/Day Years Used Date Smoking Tobacco: Every Day Cigarettes Smokeless Tobacco: Never Tobacco Cessation:Ready to Q uit: No; Counseling Given: Yes Alcohol Use Standard Drinks/Week Comments No 0 (1 standard drink = 0.6 oz pur e alcohol) Comments No Sex and Gender Information Value Date Recorded Sex Assigned at Not on file Legal 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 Gender Identity Not on file Sexual Orientation Not on file Last Filed Vital Signs Vital Sign Reading Time Taken Comments Blood Pressure 111/67 12/27/2019 7:30 AM CDT Pulse 59 12/26/2019 11:00 PM CDT Temperature 36.9 C (98.4 F) 12/27/2019 7:30 AM CDT Respiratory Rate 14 12/27/2019 7:30 AM CDT Oxygen Saturation 100% 12/27/2019 7:30 AM CDT Inhaled Oxygen Concentration - - Weight 68.5 kg (151 lb) 12/25/2019 8:47 AM CDT Height 170.2 cm (5' 7 ) 12/25/2019 8:42 AM CDT Body Mass Index 23.65 12/25/2019 8:42 AM CDT Plan of Treatment Health Maintenance Due Date Last Done Comments HIV SCREENING 2004 HEPATITIS C SCREENING 07/08/2007 HEPATITIS B VACCINE (1 of 3 - 19+ 3-dose series) 2008 COVID-19 VACCINE (2023-2 5 season) 2024 DEPRESSION SCREENING 2024 INFLUENZA VACCINE (Season Ended) 2025 07/24/19 20 DTAP/TDAP/TD VACCINES (2 - T d or Tdap) 11/02/2029 11/03/2019 ZOSTER VACCINE (1 of 2) 2039 HIB VACCINE Aged Out No longer eligi ble based on patient's age to complete this topic HPV VACCINE Aged Out No longer eligi ble based on patient's age to complete this topic MENINGOCOCCAL (Group B) VACC INE SHARED DECISION-MAKING Aged Out No longer eligibl e based on patient's age to complete this topic MENINGOCOCCAL GROUPS A/C/Y/W VACCINE Aged Out No longer eligible b ased on patient's age to complete this topic PNEUMOCOCCAL VACCINE Aged Out No long er eligible based on patient's age to complete this topic Procedures Procedure Name Priority Date/Time Associated Diagnosis Comments CULTURE STREP B Routine 12/13/2019 10:14 AM CDT , unspecified gestational age from Last 3 Months or Most Recently Relevant to Health Maintenance Results * (ABNORMAL) CULTURE STREP B (12/13/2019 10:14 AM CDT) Culture Strep B Growth of Streptococcus agalactiae (Group B)(AA) JACKIE 12/15/2019 1:48 PM CDT [facility] Microbiology MISCELLANEOUS SAMPLES / Unknown Collection / Unknown 12/13/2019 10:14 AM CDT 12/13/2019 10:24 AM CDT Narrative [facility] - 12/15/2019 1:48 PM CDT Susceptibility testing of penicillin, other beta-lactam antibiotics, and vancomycin is not necessary for beta-hemolytic streptococci groups A,B,C and G because resistant strains have not been recognized. Gabbi Rucker JUSTOWRITER OPERATOR-HOUSE SERV[facility] - MICROBIOLOGY ORDERA BLES Final Result [facility] [address] [place] [address], [facility] [[email or web address]] [phone] from Last 3 Months or Most Recently Relevant to Health Maintenance Insurance [facility] Care Address: [address] [phone] [facility] Advance Directives * Full Code (Latest Code Status on File) Date Activated Date Inactivated Comments 12/25/2019 8:46 AM 12/27/2019 5:14 PM * Full Code Date Activated Date Inactivated Comments 12/06/2019 4:24 PM 12/06/2019 8:41 PM Care Teams English Instructor Relationship Specialty [place] [address] [place] [address] [phone] PCP - General 03/17/18
--- OUTSIDE RECORDS SUMMARY | 2024-11-21 19:23 | XMS_ITS | Encounter Summary ---
Author Organization [facility] Address [address] [place] [address] Care Team Providers Care Sprinkler Truck Driver Name Role Phone Mariaelena Garduno MD Primary Care Provider Reason for Visit * Reason Onset Date Comments Pre Appointment Management 11/30/2019 Encounter Details Date Type Department Care Team (Late st Contact Info) Description 11/30/2019 Telephone [facility]/ EVALUATION UNIT [address] [place] [address]. 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 Unable to assess 11/15/2019 12:04 PM CDT documented as of this encounter Miscellaneous Notes * Telephone Encounter - Lyn Savage RN - 11/30/2019 1:59 PM CDT Patient updated on COVID-19 visitor policy-NO Visitors allowed at this time Encourages Laurel Ty Damien to wear face covering to her appointment. Patient screening: In the past two weeks have you experienced Fever?: yes or no Cough?: no Shortness of Breath?: no Nausea?: no Vomitting?: no Diarrhea?: no Loss of smell or taste?: no Muscle pain? no What is your occupation?: none Do you work with anyone who tested postive for COVID-19?: no Are you concerned that you may have or been exposed to COVID-19?: no Have you been around around anyone with a fever/cough/shortness of breath?: no Nausea/vomitting/diarrhea?: no Also notified her we will be doing screening at the door. She voiced understanding and agreement. documented in this encounter Plan of Treatment Not on file documented as of this encounter Visit Diagnoses Not on filedocumented in this encounter Additional Health Concerns Infection Onset Date Last Indicated Resolved Time COVID-19 Under Investigation 12/22/2019 12/22/2019 12/23/2019 2:38 AM CDT documented as of this encounter Care Teams Sprinkler Truck Driver Relationship Specialty Start [place] [address] [place] [address] [phone] PCP - General 03/17/18 documented as of this encounter
[2024-11-21 21:17] LABS: BEDSIDEPREGUCG Positive (Negative)
[2024-11-21 21:18] LABS: Basophils Absolute Auto 0.1 K/mm3 (0.0-0.1); Basophils Percent Auto 0.9 % (0.2-1.2); Eosinophils Absolute Auto 0.1 K/mm3 (0-0.3); Eosinophils Percent Auto 0.8 % (0-4.4); Hematocrit 40.5 % (37.0-47.0); Hemoglobin 12.8 g/dL (12.0-15.0); Immature Granulocyte Absolute 0.05 K/mm3 (0.00-0.031); Immature Granulocyte Percent A 0.5 % (0-0.5); Lymphocytes Absolute Auto 2.84 K/mm3 (0.9-3.2); Lymphocytes Percent Auto 26.4 % (18.3-44.2); Mean Corpuscular HGB Conc 31.6 g/dl (32-36); Mean Corpuscular Hemoglobin 28.5 pg (26-34); Mean Corpuscular Volume 90.2 fl (80-100); Mean Platelet Volume 9.7 fl (7.4-10.4); Monocytes Absolute Auto 0.8 K/mm3 (0.1-0.6); Monocytes Percent Auto 7.1 % (2.6-8.5); Neutrophils Absolute Auto 6.9 K/mm3 (1.3-6.7); Neutrophils Percent Auto 64.3 % (45.5-73.1); Platelet Count Result 280 k/mm3 (150-375); Red Blood Count 4.49 M/mm3 (4.2-5.4); Red Cell Distribution Width 14.3 % (11.5-14.5); White Blood Count 10.8 K/mm3 (4.5-10.0)
[2024-11-21 21:22] LABS: Add Urine Microscopic? YES; Appearance Urine Clear (Clear); Bacteria Urine None Seen /hpf; Bilirubin Urine Negative (Negative); Blood Urine Negative (Negative); Color Urine Yellow (Yellow); Glucose Urine UA Negative (Negative); Ketones Urine 3+ mg/dL (Negative); Leukocyte Esterase Ur Negative LEU/UL (Negative); Nitrate Urine Negative (Negative); Non Pathogenic Casts 0-2; Protein Urine Trace mg/dL (Negative); RBC Urine 0-2 /hpf (0-2); Specific Grav Ur 1.027 (1.001-1.035); Squamous Epithelial Cell Urine Few /hpf (Few); WBC Urine 0-5 /hpf (0-3); pH Urine 6.5 (5.0-9.0)
--- NOTE | 2024-11-21 21:23 | ED.ABDPAIN ---
HPI - Abdominal Pain General Chief Complaint: Abdominal Pain Stated Complaint: abd pain, nausea, pos preg Time Seen by Provider: 11/21/24 20:45 Source: patient Mode of arrival: ambulatory Limitations: no limitations History of Present Illness HPI narrative: Patient is a 34-year-old female who presents the ED with report of nausea, vomiting. Patient reports she has been sick since 11/19 with nausea, decreased appetite, occasional vomiting, decreased energy, generalized weakness. Patient is currently . She reports her last normal menstrual cycle was 10/13/2024. She has had a positive test at home. . She denies ever having symptoms like this with her previous pregnancies. Reports some intermittent right lower abdominal pain. Reports subjective fevers, cough, congestion. Denies diarrhea, constipation, vaginal bleeding. Patient will be seeing [facility] [place] on 12/13/24. Related Data Allergies Allergy/AdvReac Type Severity Reaction Status Date / Time amoxicillin Allergy Swelling Verified 09/05/22 15:56 of Lip/Tongue/Throat Review of Systems Review of Systems: All systems reviewed & are unremarkable except as noted in HPI. All systems reviewed & are unremarkable except as noted in HPI and below PMFSH Past Medical History Medical History No active medical problems Social History Social History Substance use: never Exam Narrative: GENERAL: Mildly ill-appearing, thin, non-toxic, in no acute distress. HEAD: Normocephalic, atraumatic. RESPIRATORY: Airway patent, respirations nonlabored. Clear to auscultation bilaterally, no rales, rhonchi, wheezing. No focal lung sounds. CARDIOVASCULAR: Regular rate and rhythm without murmurs, rubs, or gallops. ABDOMINAL: Soft, no significant focal tenderness, no rebound, nondistended. Normoactive BS. MUSCULOSKELETAL: Moves all extremities. No gross deformities. SKIN: Warm, dry, normal color. NEURO: A&O X3. Speech clear. Cranial nerves II-XII grossly intact. Steady gait. No ataxic movements. PSYCHIATRIC: Tearful. Normal interaction. Course Vital Signs Vital signs: Vital Signs Temperature 98.1 F 11/21/24 19:23 Pulse Rate 75 11/21/24 19:23 Respiratory Rate 14 11/21/24 19:23 Blood Pressure 124/68 11/21/24 19:23 Pulse Oximetry 100 11/21/24 19:23 Oxygen Delivery Room Air 11/21/24 19:23 Temperature 98.0 F 11/22/24 00:20 Pulse Rate 64 11/22/24 00:20 Respiratory Rate 16 11/22/24 00:20 Blood Pressure 112/64 11/22/24 00:20 Pulse Oximetry 100 11/22/24 00:20 Oxygen Delivery Room Air 11/21/24 19:23 MDM - Abdominal Pain MDM Narrative Medical decision making narrative: Patient presented to ED with nausea, vomiting, decreased energy, some URI symptoms. Currently early gestation of . Last normal menstrual cycle was last month, 10/13. Vital signs are stable upon arrival. CBC with white blood cell count 10.8. CMP is unremarkable. Stable electrolytes. Stable kidney function. Normal Mag. UA with 3+ ketones, no signs of infection. Fluids are ongoing. Viral swabs are negative. Bedside preg is positive. Beta hCG nearly 17K. Ob ultrasound was obtained and showing live IUP, 6 weeks 1 day, does show mild/borderline bradycardia at 106 beats per minute. This is possibly related to patient's dehydration. Discussed lab and imaging findings with patient, need for close follow-up for further ultrasound and evaluation of bradycardia. Patient is feeling much better after 2 L of fluid, Benadryl, Reglan. Able to tolerate p.o. intake. Feel patient is safe for discharge home with close outpatient follow-up. She has an appointment upcoming with OBGYN. Will send in short course of Reglan for home use. Discussed strict return precautions. Patient voiced understanding, in agreement w/ plan, feels comfortable going home. Discharged in stable condition. Medical Records Attestation: I reviewed the patient's medical records. Lab Data Attestation: I reviewed the patient's lab results. 11/21/24 21:11 11/21/24 21:11 Labs: Lab Results 11/21/24 11/21/24 11/21/24 Range/Units 21:11 21:15 22:06 WBC 10.8 H (4.5-10.0) K/mm3 RBC 4.49 (4.2-5.4) M/mm3 Hgb 12.8 (12.0-15.0) g/dL Hct 40.5 (37.0-47.0) % MCV 90.2 (80-100) fl MCH 28.5 (26-34) pg MCHC 31.6 L (32-36) g/dl RDW 14.3 (11.5-14.5) % Plt Count 280 (150-375) k/mm3 MPV 9.7 (7.4-10.4) fl Immature Gran % (Auto) 0.5 (0-0.5) % Neut % (Auto) 64.3 (45.5-73.1) % Lymph % (Auto) 26.4 (18.3-44.2) % Ward % (Auto) 7.1 (2.6-8.5) % Eos % (Auto) 0.8 (0-4.4) % Baso % (Auto) 0.9 (0.2-1.2) % Lymph # (Auto) 2.84 (0.9-3.2) K/mm3 Ward # (Auto) 0.8 H (0.1-0.6) K/mm3 Eos # (Auto) 0.1 (0-0.3) K/mm3 Baso # (Auto) 0.1 (0.0-0.1) K/mm3 Abs Immat Gran (auto) 0.05 H (0.00-0.031) K/mm3 Absolute Neuts (auto) 6.9 H (1.3-6.7) K/mm3 Absolute Nucleated RBC 0.000 (0.0-0.012) K/mm3 Nucleated RBC % 0.0 (0.0-0.2) % Sodium 137 (137-145) mmol/L Potassium 3.9 (3.4-5.0) mmol/L Chloride 105 (98-107) mmol/L Carbon Dioxide 23 (22-30) mmol/L Anion Gap 9 (4-12) mmol/L BUN 10 (7-17) mg/dL Creatinine 0.61 L (0.7-1.0) mg/dL Estim Creat Clear Calc 104 ml/min Estimated GFR > 60 (59 - ) Glucose 86 (65-110) mg/dL Calcium 9.4 (8.4-10.2) mg/dL Magnesium 2.0 (1.6-2.3) mg/dL Total Bilirubin 0.7 (0.2-1.3) mg/dL AST 25 (14-36) U/L ALT 14 (6-35) U/L Alkaline Phosphatase 55 (38-126) U/L Total Protein 7.0 (6.3-8.2) g/dL Albumin 4.4 (3.5-5.1) g/dL Lipase 42 (23-300) U/L Beta HCG, Quant 22593.00 mIU/ML Urine Color Yellow (Yellow) Urine Appearance Clear (Clear) Urine pH 6.5 (5.0-9.0) Ur Specific [place] 1.027 (1.001-1.035) Urine Protein Trace (Negative) mg/dL Urine Glucose (UA) Negative (Negative) mg/dL Urine Ketones 3+ H (Negative) mg/dL Ur Blood (Man) Negative (Negative) Urine Nitrate Negative (Negative) Urine Bilirubin Negative (Negative) Urine Urobilinogen 1.0 (<2.0) mg/dL Leukocyte Esterase Rfl Negative (Negative) ZEESHAN/UL Urine RBC 0-2 (0-2) /hpf Urine WBC 0-5 (0-3) /hpf Ur Squamous Epith Cells Few (Few) /hpf Urine Bacteria None seen /hpf Urine Casts 0-2 POC Urine HCG, Qual Positive (Negative) Influenza A (RT-PCR) Negative (Negative) Influenza B (RT-PCR) Negative (Negative) RSV (RT-PCR) Negative (Negative) SARS-CoV-2 RNA (RT-PCR) Negative (Negative) Imaging Data Attestation: I personally reviewed and interpreted this imaging study as follows: Radiologist's impression: ITS Impressions Obstetrics Ultrasound 11/21/24 22:35 IMPRESSION: Single, live intrauterine gestation. Borderline bradycardia of 106 bpm. Recommend close clinical and sonographic follow-up. Estimated Gestational Age: 6 weeks, 1 days by crown rump length. DANIEL by ultrasound 07/16/2025. Discharge Plan Discharge Clinical Impression: 6 weeks gestation of , bradycardia Nausea and vomiting Qualifiers: Vomiting type: unspecified Qualified Code(s): R11.2 - Nausea with vomiting, unspecified Patient Disposition: Home Condition: Stable Instructions: Antibiotic Form, Nausea and Vomiting in (ED), Dehydration (ED) Additional Instructions: Utilize Reglan as needed for further nausea. You may also try over the counter vitamin B6, doxylamine, corrina supplements to help with nausea. Increase fluid intake. Recommend electrolyte rich fluids, gatorade, pedialyte, body armour. Recommend clear liquids or bland diet until symptoms improve, such as bananas, rice, applesauce, toast, or crackers. Follow up with your OBGYN for further evaluation. The baby's heart rate was noted to be slightly low today on ultrasound (106 beats per minute). This may be related to your dehydration. You will need further imaging and evaluation with your OBGYN. Return to the ED if you experience worsening or severe symptoms, unable to keep down food or drink, severe pain, vaginal bleeding, fevers, rectal bleeding, vomiting blood, or any other symptoms of concern. Patient Language: Citizen [place] Prescriptions: New metoclopramide HCl 5 mg tablet 5 mg PO Q6H PRN (Reason: nausea and vomiting) Qty: 10 0RF Follow-up/Referrals: Jona,ANITA Gibson [Primary Care Provider] - Time of Disposition: 23:32
--- OUTSIDE RECORDS SUMMARY | 2024-11-21 21:26 | XMS_ITS | CONTINUITY OF CARE DOCUMENT ---
Author Name vianney faith Address Unknown Organization [facility] Address [address] [place] [address] Phone [phone] Care Team Providers Care Sled Maker Name Role Phone Andrew COBIAN, Brad Unavailable Isaac Dorsey Unavailable [phone] Isaac Dorsey Unavailable [phone] PROBLEMS Condition Status Date Provider Notes Palpitations active Brad Morales MD Orthostatic dizziness active Brad Morales MD Anemia, iron deficiency active Virginia Venti miglia COUNTERINTELLIGENCE AGENT Tobacco abuse active [place] Ventimiglia COUNTERINTELLIGENCE AGENT ENCOUNTERS Date Type Provider Location Encounter Diag nosis - In-person encounter Office Visit Brad Morales MD [facility] Anemia, iron deficiencyTobacco abuse - In-person encounter Office Visit Brad Morales MD [facility] - In-person encounter Office Visit Brad Morales MD [facility] PalpitationsOrthostatic dizziness VITAL SIGNS Date Observation [...] blood pressure, systolic 103 mm[Hg] Cat herine [place] oxygen saturation, oximetry 99 % Nadine [place] respiratory rate E&M 14 /min Catheri ne Von pulse rate 82 /min Nadine [place] weight E&M 138 [lb_av] Nadine Von height E&M 67 [in_i] Nadine [place] ALLERGIES Allergy Name Onset Date Reaction Criticality Status AMOXICILLIN Low Criticality active HISTORY OF MEDICATION USE Medication Status Instructions Dates Provider Indications Com ments Iron (ferrous sulfate) 325 mg (65 mg iron) tablet active TAKE 1 TABLET BY MOUTH EVERY DAY [facility] ibuprofen 800 mg tablet active Take as needed SOCIAL HISTORY Date Observation Value Provider smoking/tobacco cess ation, patient education and counseling yes Virginia Fieldsmiglia [facility] alcohol use, average drinks per day social [place] Ventimiglia [facility] personal history of marijuana use no [place] Ventimiglia [facility] drug use no [place] Ventimig sylvie [facility] alcohol use yes [place] Ventimig sylvie [facility] passive cigarette sm mert exposure no Virgniia Ventimiglia [facility] number of years as a smoker 10 years Virginiaharley Fieldsmiglia [facility] smoking history, tot al pack/day 1/2 pack Virginia Ventimiglia [facility] cigarette use yes Virginiaharley Fieldsmi glia [facility] smoking status Current every day smoker A damonkizzy Galiciaglia [facility] social history reviewed E&M revi ewed - no changes required Brad Morales MD passive cigarette sm mert exposure no Brad Morales MD social history reviewed E&M revi ewed - no changes required Brad Morales MD social history E&M Marital Statu s: Engaged C waqaren: 2 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 Brad Morales MD number of years as a smoker 10 years Nadine [place] smoking history, tot al pack/day 1/2 pack Nadine [place] cigarette use yes Nadine [place] smoking status Current every day smoker C atherine [place] FAMILY HISTORY Family Member Condition Father Aortic Aneurysm INSURANCE PROVIDERS Payer name Policy type / Coverage type Harold red democrat ID [employer] MEDICAID Medicaid [id number] ADVANCE DIRECTIVES Name Date DISCUSSED - NO DECISION MADE TREATMENT PLAN Date Name Performer [id number],B,E CHO and event monitor normal. Patient symptoms have resolved. No further testing needed and no f/u at this time. Brad Morales MD [id number],B, Brad vicente MD [id number],C,Telesentry Ra benjamin Morales MD [id number],N,Likely volume depletion. Brad Morales MD Cardiology:cessation encouraged. [place] Echeverria [facility] Cardiology:will star t replacement therapy O rders: 9 9214 MOD 30-39min (CPT-36532) C BC (INCLUDES DIFF/PLT) (6399) F ERRITIN (457) I MEHREEN AND TOTAL IRON BINDING CAPACITY (7573) Virginiaharley Echeverria [facility] Cardiology:Has recur rent episodes occuring 1-3 times a month, lasting less than 2 minutes at a time s he had tele 2 years ago with no arrythmia n ormal echo at that time S he however, had labs that showed iron deficiency anemia, will update iron studies W ill begin replacement therapy and f/u in 3 mos or sooner if needed. [place] Echeverria [facility] Cardiology:ECHO and event monitor normal. Patient symptoms [...]
--- OUTSIDE RECORDS SUMMARY | 2024-11-21 21:27 | XMS_ITS | Clinical Summary ---
Author Organization [facility] Address [address] [place] [address] Care Team Providers Care Mat Puncher Name Role Phone Elisabet Mcdonald Primary Care Provider [phone] Allergies Active Allergy Reactions Criticality Noted Date Comments Amoxicillin Swelling Medium 09/06/2022 Medications ibuprofen (ADVIL,MOTRIN) 800 mg tablet as needed 1969 Activ e PNV [id number] late-dha 29 mg iron-1 mg -350 mg comb pack,tablet DR,capsule DR Take by mouth daily Active Active Problems No known active problems Social History Tobacco Use Types Packs/Day Years Used Date Smoking Tobacco: Every Day Cigarettes Smokeless Tobacco: Never Tobacco Cessation:Ready to Q uit: Not Asked; Counseling Given: Not Answered AUDIT-C Answer Date Recorded Q1: How often do you have a drink containing alcohol? Never 03/09/2023 Q2: How many drinks containi ng alcohol do you have on a typical day when you are drinking? 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 Gender Identity Not on file Sexual Orientation Not on file Obstetrics History Last Filed Vital Signs Vital Sign Reading Time Taken Comments Blood Pressure 106/73 03/09/2023 3:10 PM CDT Pulse 82 11/04/2022 2:10 PM CDT Temperature 36.9 C (98.4 F) 03/09/2023 3:10 PM CDT Respiratory Rate 20 11/04/2022 2:10 PM CDT Oxygen Saturation 99% 09/06/2022 2:30 PM RETAIL PLANNING MANAGER Inhaled Oxygen Concentration - - Weight 64 kg (141 lb 1.6 oz) 03/09/2023 3:10 PM CDT Height 170.2 cm (5' 7 ) 03/09/2023 3:10 PM CDT Body Mass Index 22.1 03/09/2023 3:10 PM CDT Plan of Treatment Health Maintenance Due Date Last Done Comments Cervical Cancer Screening 1989 Depression Screening 1989 Hepatitis C Screening 1989 Varicella Vaccines (1 of 2 - 13+ 2-dose series) 2002 Regular Well Visit/Exam 18-64 2007 Pneumococcal vaccine <65 (1 of 2 - PCV) 2008 Influenza Vaccine (#1) 2024 07/24/2019 DTaP/Tdap/Td Vaccine (5 - Td or Tdap) 11/02/2029 11/03/2019, 10/17/2019, 06/19/2015, Additional history exists Hepatitis B Screening Completed 07/24/2019 HPV Vaccines Aged Out No longer eligi ble based on patient's age to complete this topic Insurance [facility] Care Teams Mat Puncher Relationship Specialty Start Date End Date Elisabet Mcdonald PA [address] [place] [address] PCP - General Physician Spice Grinder 03/09/23
--- OUTSIDE RECORDS SUMMARY | 2024-11-21 21:27 | XMS_ITS | Referral Summary ---
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 Gender Identity Not on file Sexual Orientation Not on file Last Filed Vital Signs Vital Sign Reading Time Taken Comments Blood Pressure 106/73 03/09/2023 3:10 PM CDT Pulse 82 11/04/2022 2:10 PM CDT Temperature 36.9 C (98.4 F) 03/09/2023 3:10 PM CDT Respiratory Rate 20 11/04/2022 2:10 PM CDT Oxygen Saturation 99% 09/06/2022 2:30 PM LIGHT OIL OPERATOR Inhaled Oxygen Concentration - - Weight 64 kg (141 lb 1.6 oz) 03/09/2023 3:10 PM CDT Height 170.2 cm (5' 7 ) 03/09/2023 3:10 PM CDT Body Mass Index 22.1 03/09/2023 3:10 PM CDT Plan of Treatment Not on file [place] [place] [address] [facility] Care Teams Goodwill Representative Relationship Specialty Start Date End Date Elisabet Mcdonald PA [address] [place] [address] PCP - General Physician Software Systems Architect 03/09/23
--- OUTSIDE RECORDS SUMMARY | 2024-11-21 21:27 | XMS_ITS | Clinical Summary ---
Author Organization [facility] Address [address] [place] [address] Care Team Providers Care Road Repairer Name Role Phone Mariaelena Garduno MD Primary Care Provider Source Comments [facility],non-owned Affiliates and Associated Physician Practices is amultiple site organization consisting of ambulatory clinics and hospital sitesin [place], [place] and [place]. This disclosure is being madepursuant to the Care Everywhere program and may not contain all information available regarding this patient. Last updated 18.[facility] Allergies No known active allergies Medications * [...] migh t be different from the original. [facility] [place] form completed. Diapers given. 12/01/2019 [...] delivery, and and demise. The incidence of intermediate frame tender health conditions and neurodevelopmental delay can also [...] to be at office of the referring glazier helper 3. weekly BPP/NST and Doppler 4. 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 Gabbi Rucker PAYMENT ANALYST-[facility] - MICROBIOLOGY ORDERA BLES Final Result [facility]CRO[facility] [address] [place] [address], [facility] [phone] from Last 3 Months or Most Recently Relevant to Health Maintenance Insurance [facility] Care Address: [address] [id number] [facility] Advance Directives * Full Code (Latest Code Status on File) Date Activated Date Inactivated Comments 12/25/2019 8:46 AM 12/27/2019 5:14 PM * Full Code Date Activated Date Inactivated Comments 12/06/2019 4:24 PM 12/06/2019 8:[address] Repairer Relationship Specialty [place] [address] [place] [phone] PCP - General 03/17/18
--- OUTSIDE RECORDS SUMMARY | 2024-11-21 21:27 | XMS_ITS | Encounter Summary ---
Author Organization [facility] Address [address] [place] [address] Care Team Providers Care Emt I/85 Name Role Phone Mariaelena Garduno MD Primary Care Provider Reason for Visit * Reason Onset Date Comments Pre Appointment Management 11/30/2019 Encounter Details Date Type Department Care Team (Late st Contact Info) Description 11/30/2019 Telephone [facility] MATERNAL/ EVALUATION UNIT [address] [place] [address]. 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
[2024-11-21 21:34] LABS: Alanine Aminotransferase 14 U/L (6-35); Albumin Level 4.4 g/dL (3.5-5.1); Alkaline Phosphatase 55 U/L (38-126); Anion Gap 9 mmol/L (4-12); Aspartate Amino Transferase 25 U/L (14-36); Bilirubin,Total 0.7 mg/dL (0.2-1.3); Blood Urea Nitrogen 10 mg/dL (7-17); Calcium 9.4 mg/dL (8.4-10.2); Carbon Dioxide 23 mmol/L (22-30); Chloride 105 mmol/L (98-107); Estimated CRCL calculation 104 ml/min; Estimated Glomerular Filt Rate > 60; Glucose 86 mg/dL (65-110); Lipase 42 U/L (23-300); Potassium 3.9 mmol/L (3.4-5.0); Sodium 137 mmol/L (137-145)
[2024-11-21] MEDS: METOCLOPRAMIDE HCL INJ 10 MG/2 ML VIAL IV PUSH (22:12)
[2024-11-21] MEDS: SODIUM CHLORIDE 0.9% IV 1,000 ML 999 ML IV CONT ×2 (22:12→22:14)
[2024-11-21] MEDS: diphenhydrAMINE HCl INJ 50 MG/ML VIAL 25 MG IV PUSH (22:12)
[2024-11-21 22:19] VITALS: BP 100/61; PULSE 63; RESP 14; O2SAT 100
[2024-11-21 22:48] LABS: Influenza A QL RT-PCR Negative (Negative); Influenza B QL RT-PCR Negative (Negative); RSV RNA, RT-PCR Negative (Negative); SARS-CoV-2 RNA PCR Negative (Negative)
[2024-11-22 00:20] VITALS: BP 112/64; PULSE 64; RESP 16; TEMP 36.7; O2SAT 100
== END 2024-11-22 00:22 | disposition home or self-care (01) ==
PROVIDERS: Emergency Medicine; Emergency Provider Physician Assistant; PCP Physician Assistant Medical
DX: O21.0 Mild hyperemesis gravidarum (principal); Z3A.01 Less than 8 weeks gestation of pregnancy; O36.8310 Maternal care for abnormalities of the fetal heart rate or rhythm, first trimester, not applicable or unspecified
CPT/HCPCS: 36415; 76801; 76817; 80053; 81001; 81025; 83690; 83735; 84702; 85025; 87637; 96361; 96374; 96375; 99284; J1200; J2765; J7030

== ENCOUNTER 2025-05-25 11:35 | Observation (INO) | payer OTHER, SELFPAY ==
[2025-05-25] VITALS (29 sets, daily range): BP systolic 99–113; BP diastolic 52–68; PULSE 68–97; O2SAT 98–100; BMI 25.5
--- NOTE | 2025-05-25 11:35 | OBADM ---
This patient, Laurel Quezada, admitted to the OB room OB Post 117 for observation. Patient/family oriented to hospital policies and general routines including ID bracelet, bed and alarms, visiting hours, pain management, procedures, bathroom and other care routines, personal items, smoking policy, room service/diet, and visiting hours. Patient/Family are encouraged to report perceived risks to care and to ask questions if they do not understand what they are told or what they should do.
[2025-05-25 12:13] LABS: Add Urine Microscopic? YES; Appearance Urine Clear (Clear); Glucose Urine UA Negative (Negative); Leukocyte Esterase Ur 1+ LEU/UL (Negative); Need Manual Microscopic Reviewed; Nitrate Urine Negative (Negative); Non Pathogenic Casts 0-2; Specific Grav Ur 1.004 (1.001-1.035)
[2025-05-25] MEDS: LACTATED RINGERS 1,000 ML 999 ML IV CONT (12:35)
[2025-05-25] MEDS: TERBUTALINE SULFATE 1 MG/ML VIAL 0.25 MG SUB-Q (12:46)
[2025-05-25] MEDS: BETAMETHASONE SOD PHOS/ACETATE 30 MG/5 ML VIAL 12 MG IM (13:47)
--- OUTSIDE RECORDS SUMMARY | 2025-05-25 16:40 | XMS_ITS | Continuity of Care Document ---
Author Organization [facility] Baker Address [address] [place] [address] [place] [address] Care Team Providers Care Casting Assistant Name Role Phone ISABELLA ARAYA Primary Care Provider [phone] Assessment No assessment recorded. Plan of Treatment Reminders Order Date Submit Date Provider Last Modified By Organization Details Last Modified Time Details Appointments U/S OB GROWTH 2024 10:00A M ULTRASOUND Not available Not available Not available OB ROUTINE 2024 10:30A M Mitzi Gary CNM Not available Not available Not available Lab None recorde d. Referral None recorde d. Procedures None recorde d. Surgeries None recorde d. Imaging US, obstetr ic, follow- up 20[address], [address], [place], [address], 05/25/2025 17:35:59 US, doppler , umbilic al artery velocim etry [address], [address], [place], [address], 05/25/2025 17:35:59 US, obstetr ic, biophys ical profile + non-str ess test [address], [address], [place], [address], 05/25/2025 17:35:59 Medication Orders None recorde d. Patient TargetsNo targets recorded. Patient InstructionsNo instructions recorded. Reason for Referral None Reported. Results Created Date Observation Date Name Description Value Unit Range Abnormal Flag Note LastModifiedBy Organization Detail LastModifiedTime 01/12/20 25 01/11/2025 [UNIT Y] ANEUP LOIDY NIPT fraction 6.1% normal Not Available [facility] [address], [place], [address], 01/11/2025 23:47:04 01/12/20 25 01/11/2025 [UNIT Y] ANEUP LOIDY NIPT 22Q11.2 microdeletio n LOW RISK <1 in 10,000 normal Not Available [facility] [address], [place], [address], 01/11/2025 23:47:04 01/12/20 25 01/11/2025 [UNIT Y] ANEUP LOIDY NIPT sex chromosome aneuploidy NOT DETECT ED normal Not Available [facility] [address], [place], [address], 01/11/2025 23:47:04 01/12/20 25 01/11/2025 [UNIT Y] ANEUP LOIDY NIPT monosomy X LOW RISK <1 in 10,000 normal Not Available [facility] [address], [place], [address], 01/11/2025 23:47:04 01/12/20 25 01/11/2025 [UNIT Y] ANEUP LOIDY NIPT trisomy 13 LOW RISK <1 in 10,000 normal Not Available [facility] [address], [place], [address], 01/11/2025 23:47:04 01/12/20 25 01/11/2025 [UNIT Y] ANEUP LOIDY NIPT trisomy 18 LOW RISK <1 in 10,000 normal Not Available [facility] [address], [place], [address], 01/11/2025 23:47:04 01/12/20 25 01/11/2025 [UNIT Y] ANEUP LOIDY NIPT trisomy 21 LOW RISK <1 in 10,000 normal Not Available [facility] [address], [place], [address], 01/11/2025 23:47:04 01/12/20 25 01/11/2025 [UNIT Y] ANEUP LOIDY NIPT sex MALE normal Not Available [facility] [address], [place], [address], 01/11/2025 23:47:04 01/12/20 25 01/11/2025 [UNIT Y] ANEUP LOIDY NIPT gestation SINGLE TON normal Not Available [facility] [address], [place], [address], 01/11/2025 23:47:04 01/12/20 25 01/11/2025 [UNIT Y] ANEUP LOIDY NIPT for detailed report, see pdf See PDF normal Not Available [facility] [address], [place], [address], 01/11/2025 23:47:04 01/16/20 25 01/15/2025 [UNIT Y] CAIN Mello sickle cell disease/beta -thalassemia /hemoglobino pathies carrier screen NEGATI VE normal Not Available [facility] [address], [place], [address], 01/15/2025 21:16:52 01/16/20 25 01/15/2025 [UNIT Y] CAIN Mello alpha-thalas semia carrier screen NEGATI VE normal Not Available [facility] [address], [place], [address], 01/15/2025 21:16:52 01/16/20 25 01/15/2025 [UNIT Y] CAIN Mello cystic fibrosis carrier screen NEGATI VE normal Not Available [facility] [address], [place], [address], 01/15/2025 21:16:52 01/16/20 25 01/15/2025 [UNIT Y] CAIN Mello spinal muscular atrophy carrier screen NEGATI VE 2 SMN1 copies , SNP not presen t normal Not Available [facility] [address], [place], [address], 01/15/2025 21:16:52 01/16/20 25 01/15/2025 [UNIT Y] CAIN Mello for detailed report, see pdf See PDF normal Not Available [facility] [address], [place], [address], 01/15/2025 21:16:52 01/06/20 25 01/05/2025 HEPAT ITIS B SURFA CE ANTIG EN hepatitis B surface antigen Non-re active non-re active This assay was perfo rmed using [employer] ratio n reage nts and test kits. Value s obtai topher with other assay metho ds or kits canno t be used inter clements eably . Not Available [facility] (Lab) [address] [facility], [place], [address], 01/06/2025 12:29:48 01/06/2001/05/2025 HEPAT ITIS C ANTIB EMERSON SCREE N, REFLE X TO CONFI RMATI ON hepatitis C antibody Non-re active non-re active Antib odies to HCV Not Detec sharan, does not exclu de the possi bilit y of expos ure to HCV. Not Available [facility] (Lab) [address] [facility], [place], [address], 01/06/2025 12:29:48 01/06/2001/05/2025 HIV 1/2 ANTIG EN/AN TIBOD Y, REFLE X CONFI RMATI ON HIV antigen/anti body Nonrea ctive nonrea ctive HIV-1 antig en and HIV-1 /HIV- 2 antib odies were not detec sharan. No labor atory evide nce of HIV infec tion. Not Available [facility] (Lab) [address], [place], [address], 01/06/2025 12:29:48 01/06/20 25 01/05/2025 CBC W/DIF F WBC 11.5 10'3/ uL 3.5-10 .5 high Not Available [facility] (Lab) [address], [place], [address], 01/06/2025 12:29:49 01/06/20 25 01/05/2025 CBC W/DIF F RBC 4.64 10'6/ uL (based on docume nted legal sex) 3.80-5 .20 Not Available [facility] (Lab) [address], [place], [address], 01/06/2025 12:29:49 01/06/20 25 01/05/2025 CBC W/DIF F HGB 13.4 g/dL (based on docume nted legal sex) 11.6-1 5.4 Not Available [facility] (Lab) [address], [place], [address], 01/06/2025 12:29:49 01/06/20 25 01/05/2025 CBC W/DIF F HCT 41.1 % (based on docume nted legal sex) 34.0-4 5.0 Not Available [facility] (Lab) [address], [place], [address], 01/06/2025 12:29:49 01/06/20 25 01/05/2025 CBC W/DIF F MCV 88.6 fL 80.0-9 9.0 Not Available [facility] (Lab) [address] [place], [address], 01/06/2025 12:29:49 01/06/20 25 01/05/2025 CBC W/DIF F MCH 28.9 pg 27.0-3 4.0 Not Available [facility] (Lab) [address] [place], [address], 01/06/2025 12:29:49 01/06/20 25 01/05/2025 CBC W/DIF F MCHC 32.6 g/dL 32.0-3 5.5 Not Available [facility] (Lab) [address] [facility], [place], [address], 01/06/2025 12:29:49 01/06/20 25 01/05/2025 CBC W/DIF F RDW 13.9 % 11.0-1 5.0 Not Available [facility] (Lab) [address] [facility], [place], [address], 01/06/2025 12:29:49 01/06/20 25 01/05/2025 CBC W/DIF F plt 281 10'3/ uL 150-40 0 Not Available [facility] (Lab) [address] [facility], [place], [address], 01/06/2025 12:29:49 01/06/20 25 01/05/2025 CBC W/DIF F MPV 10.3 fL 8.8-12 .1 Not Available [facility] (Lab) [address] [facility], [place], [address], 01/06/2025 12:29:49 01/06/20 25 01/05/2025 CBC W/DIF F NRBC's 0.0 % 0.0 Not Available [facility] (Lab) [address] [facility], [place], [address], 01/06/2025 12:29:49 01/06/20 25 01/05/2025 CBC W/DIF F absolute NRBCs 0.0 10'3/ uL no refere nce range establ ished Not Available [facility] (Lab) [address] [facility], [place], [address], 01/06/2025 12:29:49 01/06/20 25 01/05/2025 CBC W/DIF F neutrophils 73.3 % 34.0-7 3.0 high Not Available [facility] (Lab) [address] [facility], [place], [address], 01/06/2025 12:29:49 01/06/20 25 01/05/2025 CBC W/DIF F lymphocytes 19.4 % 15.0-5 0.0 Not Available [facility] (Lab) [address] [facility], [place], [address], 01/06/2025 12:29:49 01/06/20 25 01/05/2025 CBC W/DIF F monocytes 5.0 % 1.0-15 .0 Not Available [facility] (Lab) [address] [facility], [place], [address], 01/06/2025 12:29:49 01/06/20 25 01/05/2025 CBC W/DIF F eosinophils 0.8 % 0.0-8. 0 Not Available [facility] (Lab) [address] [facility], [place], [address], 01/06/2025 12:29:49 01/06/20 25 01/05/2025 CBC W/DIF F basophils 0.7 % 0.0-2. 0 Not Available [facility] (Lab) [address] [facility], [place], [address], 01/06/2025 12:29:49 01/06/20 25 01/05/2025 CBC W/DIF F immature granulocytes 0.8 % no define d refere nce range Immat ure Granu locyt es (IG) repre sents autom ated enume ratio n of Metam yeloc ytes, Myelo cytes and Promy elocy joselyn when IG is < 5%. Blast s are not inclu ded in IG and repor sharan separ ately if prese nt. Not Available [facility] (Lab) [address] [facility], [place], [address], 01/06/2025 12:29:49 01/06/20 25 01/05/2025 CBC W/DIF F absolute neutrophils 8.4 10'3/ uL 1.5-8. 0 high Not Available [facility] (Lab) [address] [facility], [place], [address], 01/06/2025 12:29:49 01/06/20 25 01/05/2025 CBC W/DIF F absolute lymphocytes 2.2 10'3/ uL 1.0-4. 0 Not Available [facility] (Lab) [address] [facility], [place], [address], 01/06/2025 12:29:49 01/06/20 25 01/05/2025 CBC W/DIF F absolute monocytes 0.6 10'3/ uL 0.2-1. 0 Not Available [facility] (Lab) [address] [facility], [place], [address], 01/06/2025 12:29:49 01/06/20 25 01/05/2025 CBC W/DIF F absolute eosinophils 0.1 10'3/ uL 0.0-0. 6 Not Available [facility] (Lab) [address] [facility], [place], [address], 01/06/2025 12:29:49 01/06/20 25 01/05/2025 CBC W/DIF F absolute basophils 0.1 10'3/ uL 0.0-0. 3 Not Available [facility] (Lab) [address] [place], [address], 01/06/2025 12:29:49 01/06/20 25 01/05/2025 CBC W/DIF F absolute immature granulocytes 0.1 10'3/ uL 0.00-0 .10 Refer ence range s for nonbi nary/ inter sex or unspe cifie d gende r patie nts have not been estab lishe d. Pleas e refer to the genieo wing table for range s estab lishe d for cisge nder patie nts and evalu ate in the clini cesar omkar xt of the indiv idual patie nt: https ://ari caballero book. nm.or g/gen derx Not Available [facility] (Lab) [address] [facility], [place], [address], 01/06/2025 12:29:49 01/06/20 25 01/05/2025 RUBEL LA IGG ANTIB EMERSON, QUANT rubella antibodies, IgG Reacti ve reacti ve Not Available [facility] (Lab) [address] [facility], [place], [address], 01/06/2025 12:29:49 01/06/20 25 01/05/2025 RUBEL LA IGG ANTIB EMERSON, QUANT rubella antibodies, IgG quant 32.5 IU/mL >=10 Non-r eacti ve (Non- Immun e) <10 IU/mL React cameron (Immu ne) > or = 10 IU/mL Not Available [facility] (Lab) [address] [facility], [place], [address], 01/06/2025 12:29:49 01/06/20 25 01/05/2025 TYPE/ RH/SC REEN ABO/Rh type O NEG Not Available [facility] (Lab) [address] [facility], [place], [address], 01/06/2025 12:29:49 01/06/20 25 01/05/2025 TYPE/ RH/SC REEN antibody screen NEG Not Available [facility] (Lab) [address] [facility], [place], [address], 01/06/2025 12:29:49 01/06/20 25 01/05/2025 TYPE/ RH/SC REEN exp date 2024 23:59 Not Available [facility] (Lab) [address] [facility], [place], [address], 01/06/2025 12:29:49 01/06/20 25 01/05/2025 HEMOG LOBIN A1C hemoglobin A1C 5.3 % 4.0-5. 6 The Ameri can [employer]abe joselyn [employer] iatio n recom mends that a prima ry goal of vidhya richardson be a HBA1C of < 7% and that physi ciakalyan richardson reeva luzackary the treat ment regim en in patie nts with HBA1C value s consi stent ly > 8%. <5.7% Aide l 5.7 - 6.4% Incre ased risk for diabe joselyn >=6.5 % Diagn ostic of diabe joselyn <7.0% Goal of thera py >8.0% Actio n sugge sted Not Available [facility] (Lab) [address] [facility], [place], [address], 01/06/2025 12:29:50 01/06/20 25 01/05/2025 RPR SCREE N, REFLE X TITER /CONF IRMAT ION RPR qualitative Nonrea ctive nonrea ctive Not Available [facility] (Lab) [address] [facility], [place], [address], 01/06/2025 12:29:50 01/06/20 25 01/05/2025 CULTU RE: URINE result report SEE RESULT S BELOW Test: Cultu re: Urine Speci men Sourc e: Urine Voide d Speci men Type: Urine Speci men Date: 2024 1619 Resul t Date: 2024 0615 Resul t Statu s: Final resul t Abnor mal: No Resul ting Lab: [facility] [address] [facility] [address] Tel: CULTU RE ----- ----- ----- --- No growt h in 1 day (dete ction level of 10,00 0 colon ies / ml.) Not Available [facility] (Lab) [address] [facility], [place], [address], 01/07/2025 07:18:53 01/06/2001/08/2025 US, obste tric, nucha l trans lucen cy No observ ation record ed. [email or web address] [address], [place], [address], 01/08/2025 12:15:22 01/06/20 25 01/05/2025 US, obste tric, follo w-up No observ ation record ed. Justine [address], [place], [address], 01/08/2025 09:36:03 02/29/20 25 02/28/2025 US, obste tric, 2nd or 3rd trime ster No observ ation record ed. [email or web address] [address], [place], [address], 02/28/2025 18:22:40 02/29/20 25 02/28/2025 US, obste tric, 2nd or 3rd trime ster No observ ation record ed. [email or web address] [address], [place], [address], 03/02/2025 10:53:01 03/28/20 25 03/28/2025 US, obste tric, follo w-up No observ [facility]ion [facility] ed. [email or web address] [address], [place], [address], 03/28/2025 13:44:08 03/28/20 25 03/28/2025 US, obste tric, follo w-up No observ ation record ed. [facility], [place], [address], 04/02/2025 20:59:08 04/25/20 25 04/25/2025 US, obste tric, follo w-up No observ ation record ed. [email or web address] [address], [place], [address], 04/25/2025 12:09:39 04/25/20 25 04/25/2025 US, obste tric, follo w-up No observ ation record ed. [email or web address] [address], [place], [address], 05/03/2025 10:21:35 05/25/20 25 05/25/2025 US, obste tric, follo w-up No observ ation record ed. howie Fletcher [address], [place], [address], 05/25/2025 13:42:24 05/25/20 25 05/25/2025 US, obste tric, follo w-up No observ ation record ed. [facility] [address], [place], [address], 05/25/2025 13:46:54 05/25/2005/25/2025 US, doppl er, umbil ical arter y veloc imetr y No observ ation record ed. [facility] [address], [place], [address], 05/25/2025 13:47:07 05/25/20 25 05/25/2025 US, obste tric, bioph ysica l profi le + non-s tress test No observ ation record ed. [facility] [address], [place], [address], 05/25/2025 13:47:17 Result Notes None recorded. Problems Name Problem SNOMED Code Status Onset Date Resolution Date Notes Provider Name and Address Organization Details Recorded Time Past history of premature delivery 394666980 Active 202412/24/2024 delivered at 35wks Sanjuana marquez [facility] 20:34:59 Polycysti c ovary syndrome 917737110 Active 2024 Sanjuana marquez [facility] 20:35:15 Hyperchol esterolem ia 73419716 Active 2024 Sanjuana marquez [facility] 06/04/202 5 20:35:40 76543618 Active 2024 Nicolasa Stokes [facility], [facility] 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 5 11:21:29 Multigrav jazmine of advanced maternal age 725864948 Active 2024 Priya Palacio null, [facility] 5 14:14:49 Problem Notes None recorded. Procedures Surgical History Date Name Laterality Status Provider Name and Address Organization Details Recorded Time 08/24/2023 Date of Last Pap Smear completed Nicolasa Stokes [facility] 01/05/2025 12:19:24 Imaging Results None recorded. Procedure Notes None recorded. Medical Equipment None Reported. Allergies Allergen ID Allergen Name Allergen Category Reaction Reaction Severity Criticality Documentation Date Start Date Code Code System Note Provider Name and Address Organization Details Recorded Time 56205 amoxicill in medicatio n anaphylax is Not available high 08/24/2023 723 RxNorm Mallorie castillo, [facility]- [address], [place], [address] [place] [address], P[facility] 4 17:45:51 Medications Name Sig Start Date Stop Date Status Note LastModified by Organization Details LastModified Time methocarbam ol 500 mg tablet TAKE 2 TABLETS BY MOUTH FOUR TIMES DAILY 01/05 completed Not Available Not Available Not Available ketoconazol e 2 % shampoo APPLY TO THE AFFECTED AREAS LATHER LEAVE IN PLACE FOR 5 MINUTES THEN RINSE BY TOPICAL ROUTE X 3 DAYS 01/05 completed Not Available Not Available Not Available clindamycin HCl 300 mg capsule TAKE 1 CAPSULE BY MOUTH THREE TIMES DAILY 01/05 completed Not Available Not Available Not Available ibuprofen 800 mg tablet Take 1 tablet 3 times a day by oral route. 01/05 completed Not Available Not Available Not Available metoclopram mark 5 mg tablet TAKE 1 TABLET BY MOUTH EVERY 6 HOURS NEEDED FOR NAUSEA OR VOMITING 01/05 completed Not Available Not Available Not Available methylpredn isolone 4 mg tablets in a dose pack FOLLOW PACKAGE DIRECTION S 01/05 completed Not Available Not Available Not Available FeroSul 325 mg (65 mg iron) tablet TAKE 1 TABLET BY MOUTH DAILY active Not Available Not Available No t Available WALL AND FLOOR TILER-PNV-DHA 28 mg iron-1 mg-200 mg capsule Take 1 capsule every day by oral route as directed for 30 days. 2024 active Not Available Not Available Not Avai lable Annovera 0.15 mg-0.013 mg/24 hr vaginal ring 08/24 completed Not Available Not Available Not Available Contour Plus Test Strip TEST BLOOD SUGAR FOUR TIMES DAILY FASTING AND AFTER EACH MEAL active Not Available Not Available No t Available Contour Plus Blue Meter TEST BLOOD SUGAR BEFORE BREAKFAST AND AFTER EACH MEAL active Not Available Not Available No t Available Vitals None Recorded Social History Question Answer Notes LastModified by Organizat ion Details LastModified Time Tobacco Smoking Status Current Every Day Smoker Nicolasa Stokes [facility], [facility] 08/24/2023 17:27:19 Do You Have An Advance Directive? No [email or web address] Information not available 02/02/2025 If You Are , What Was Your Level Of Alcohol Consumption Prior To ? Occasional [email or web address] Information not available 12/13/2024 Are You Blind Or Do You Have Difficulty Seeing? No Information not available 08/24/2023 What Is Your Level Of Caffeine Consumption? Moderate [email or web address] Information not available 12/13/2024 How Much Tobacco Do You Chew? None [email or web address] Information not available 02/02/2025 In The 14 Days Before Symptom Onset, Have You Had Close Contact With A Laboratory-confir med COVID-19 While That Case Was Ill? No Information not available 08/24/2023 In The 14 Days Before [...] Of Diet Are You Following? REGULAR Information not available 08/24/2023 What Is The Highest Grade Or Level Of School You Have Completed Or The Highest Degree You Have Received? [id number] Information not available 08/24/2023 Are There Any [...] Your Home? Yes Information not available 08/24/2023 At What Age Did You Start Smoking Tobacco? 14 [email or web address] Information not available 02/02/2025 How Much Tobacco Do You Smoke? 0.5 PPD Information not available 08/24/2023 Do You Use Sunscreen Routinely? Yes Information not available 08/24/2023 Has Tobacco Cessation Counseling Been Provided? No [email or web address] Information not available 04/25/2025 How Many Years Have You Smoked Tobacco? 15 [email or web address] Information not available 02/02/2025 Have You Used IV Drugs? No [email or web address] Information not available 02/02/2025 Do You Have Difficulty Walking Or Climbing Stairs? No Information not available 08/24/2023 Sex: Unknown Functional Status Question Answer Note LastModified by Organizat ion Details LastModified Time Do you use any illicit or recreational drugs? Yes [email or web address] Information not available 02/28/2025 Do you or have you ever used any other forms of tobacco or nicotine? Yes [email or web address] Information not available 12/13/2024 What is your level of alcohol consumption? None Information not available 08/24/2023 Are you currently employed? No Information not available 08/24/2023 Are you able to walk independently without assistance or assistive devices? [email or web address] Information not available 08/24/2023 Are you able to care for yourself independently? 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 No Information not available 08/24/2023 Do you or have you ever used e-cigarettes or vape? Former user of electronic cigarettes Information not available 12/13/2024 What is your exercise level? Occasional Information not available 03/28/2025 Mental Status Question Answer Note LastModified by Organization D etails LastModified Time Do you feel stressed (tense, restless, nervous, or anxious, or unable to sleep at night)? [id number] Information not available 08/24/2023 Family History Relationship Description Onset Age of this Age Resolved Age Notes LastModified by Organization Details LastModified Time Mother Anemia Not available 17:23:41 Mother Diabetes mellitus Not available 2023 17:24:19 Sister Anemia Not available 17:23:41 Sister Hypercholest erolemia Not available 2023 17:24:31 Sister Polycystic ovary syndrome [email or web address] Not available 05/12 10:49:51 Paternal Grandmother Malignant neoplasm of breast [email or web address] Not available 05/12 10:49:51 Father Diabetes mellitus Not available 2023 17:24:19 Father Hypertensive disorder Not available 2023 17:24:52 Paternal Grandfather Diabetes mellitus Not available 2023 17:24:19 Medical History Condition Response Allergies (Food, seasonal, environmental ) N Other Y Breast Cancer N Drug/Latex Allergies/Reactions N Blood Transfusion N Dermatologic Disorders N Lung Disease N Defects or Inherited Disease N Breast Problem N Gestational Diabetes N Hematologic disorders N Anesthesia Complications N History of STI N Deep Vein Thrombosis N Polycystic ovary syndrome Y Anxiety Disorder N Autoimmune disease N Arthritis N Infertility Y Polyps N Acid Reflux (GERD) N History of abnormal pap N Cancer N Stroke N Varicosities N Neurologic/Epilepsy N Endometriosis N High Cholesterol Y Headaches N Fibromyalgia N Kidney Disease N Heart Problems N Kidney or Bladder Problems N Thyroid Problems N GI Problems N Eating Disorder [...] N Thrombophilias N Gynecological History Statement/Question Response Date of Last Mammogram Flow Heavy Date of LMP 10/11/2024 N Was last menstrual period normal Y STIs/STDs N Date of control 1990 Date of Last Colonoscopy None Desired Control Method None Abnormal Pap N On BCP's at Conception? N HPV Vaccine Y Duration of Flow (days) 7 Current Control Method Age at First Child 26 Are cycles usually normal Y Frequency of Cycle (Q days) 27 Sexually Active? Y Menses Monthly Y Date of DEXA bone scan Age of first menstrual cycle 12 Date of Last Pap Smear 08/24/2023 Sexual Problems? N LMP Definite N Obstetrics History GPAL:G 3 P 0 0 0 2 Type Value Living 2 Total 3 Past Encounters Encounter ID Performer Location Encounter Start Date Encounter Closed Date Diagnosis/Indication Diagnosis SNOMED-CT Code Diagnosis ICD10 Code Diagnosis IMO Codes Diagnosis Note [id number] Kit Lemus MD [facility] [address] [place] [address] 04/25/2025 10:59:22 04/25/2025 11:47:05 care status [id number] O36.5930 Z3A.28 [id number] Mitzi Gary [facility] [address] [place] [address] 04/25/2025 10:59:58 04/25/2025 13:29:42 Gestation period, 28 weeks [id number] Z3A.28 [id number] [facility] [address] [place] [address] 05/11/2025 10:40:50 05/11/2025 11:22:29 Gestation period, 30 weeks [id number] Z3A.30 [id number] cont pnv [id number] Kit Lemus MD [facility] [address] [place] [address] 05/25/2025 10:49:25 05/25/2025 12:11:16 Poor growth affecting management [id number] O36.5990 O09.523 Z3A.32 [id number] Mitzi Gary, REMY [facility] [address] [address] 05/25/2025 10:49:47 05/25/2025 12:30:07 Gestation period, 32 weeks [id number] Z3A.32 [id number] Poor growth affecting management [id number] O36.5990 [id number] Health Concerns Section Related Observation LastModified by Organization Detai ls LastModified Time None Recorded Concern Status LastModified by Organization Details LastModified Time None Recorded Payers Encounter Date Sequence Insurance Name Policy Number Policy Hicks Covered Member ID Hicks Member ID Guarantor Name 05/25/2025 1 [facility] (MEDICAID HMO) [id number] Laurel Will [id number] Laurel Will OBGyn Episode Ob Episode Information Episode Created Date Number of Fetuses Patient Bloodtype Patient rh Status Prepregnancy Weight lbs Domestic Partner Domestic Partner Phone Father Name Pediatric Care Coordinator Status 01/06/20 25 1 O Negative Kev OPEN Fetus Data First Name Last Name Admitted to NICU Weight (g) Sex Living Outcome Pediatric Complications Fetus ID Race Codes Race Delivery Type [id number] Problems Problem Notes unsure if nsts for elevate b lood pressure- start bASA Problem Name Start Date End Date Resolution Snomed Code Not e 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 01/08/2025 [id number] O-, ne eds rhogam at 28 wks Multigravida of advanced maternal age 0702/06/2025 [id number] Rufino Calculation Initial Rufino Date Initial Exam Date Initial Exam Provider Initial Ultrasound Date Last Menstrual Period Date Ultra Sound Weeks Gestation 07/17/2025 01/05/2025 12/13/2024 10/11/2024 9 Eighteen To Twenty Week Rufino Update Ultra Sound Date Fundal Height At Umbil Quickening Date Ultra Sound Latest Weeks Gestation Final Rufino Confirmed By Final Rufino Confirmed Date Final Rufino Date Ultra Sound Latest Days Gestation 0 0 Pre- Flowsheet Flowsheet Date 01/05/2025 Kessler Score Blood Edema Fundus Height Fundus Units Glucose Ketones Leukocytes Nitrite Labor Signs Protein Cervic Dilation Cervic Effacement Cervic Station Type Weight in lbs Pre/Post Dialysis Refused Weight 134.35135289414 BP Diastolic BP Location Tested BP Systolic BP Type 67 100 sitting Fetus Heart Rate Present Fetus Movement A No Comments reviewed hx of 2 uncomplicat ed term vaginal deliveries, one at 35 weeks gestation. taking extra iron, has hx of lower iron in will do labs and nipt today. education and precautions. begin routine prental care Flowsheet Date 02/02/2025 Kessler Score Blood Edema Fundus Height Fundus Units Glucose Ketones Leukocytes Nitrite Labor Signs Protein Cervic Dilation Cervic Effacement Cervic Station Type Weight in lbs Pre/Post Dialysis Refused Weight 140.553181421042 BP Diastolic BP Location Tested BP Systolic BP Type 63 L arm 101 sitting Fetus Heart Rate Present Fetus Movement A No Comments +FM, doing well, anatomy sca n next visit, unsure about 1 hour, gets sick discussed acog rec GCT but fresh test or testing x 2 weeks, pt to think about it. precautions and education f/u 4 weeks Flowsheet Date 02/28/2025 Kessler Score Blood Edema Fundus Height Fundus Units Glucose Ketones Leukocytes Nitrite Labor Signs Protein Cervic Dilation Cervic Effacement Cervic Station Type Weight in lbs Pre/Post Dialysis Refused BP Diastolic BP Location Tested BP Systolic BP Type Fetus Heart Rate Present Fetus Movement Comments Flowsheet Date 02/28/2025 Kessler Score Blood Edema Fundus Height Fundus Units Glucose Ketones Leukocytes Nitrite Labor Signs Protein Cervic Dilation Cervic Effacement Cervic Station Type Weight in lbs Pre/Post Dialysis Refused Weight 146.347374338615 BP Diastolic BP Location Tested BP Systolic BP Type 67 L arm 102 sitting Fetus Heart Rate Present Fetus Movement A Yes Comments +FM anatomy complete efw 13% , AC 22% f/u 4 weeks rpt growth , precautions and education Flowsheet Date 03/28/2025 Kessler Score Blood Edema Fundus Height Fundus Units Glucose Ketones Leukocytes Nitrite Labor Signs Protein Cervic Dilation Cervic Effacement Cervic Station Type Weight in lbs Pre/Post Dialysis Refused BP Diastolic BP Location Tested BP Systolic BP Type Fetus Heart Rate Present Fetus Movement Comments Flowsheet Date 03/28/2025 Kessler Score Blood Edema Fundus Height Fundus Units Glucose Ketones Leukocytes Nitrite Labor Signs Protein Cervic Dilation Cervic Effacement Cervic Station Type Weight in lbs Pre/Post Dialysis Refused Weight 150.363957061232 BP Diastolic BP Location Tested BP Systolic BP Type 61 L arm 101 sitting Fetus Heart Rate Present Fetus Movement A Yes Comments +FM reviewed us, ? adenomyos is, efw 17%, hc 7%, hx heavy painful cycles, can discuss after delivery, f/u growth 4 weeks, plan gct and rhogam at jaswant Flowsheet Date 04/25/2025 Kessler Score Blood Edema Fundus Height Fundus Units Glucose Ketones Leukocytes Nitrite Labor Signs Protein Cervic Dilation Cervic Effacement Cervic Station Type Weight in lbs Pre/Post Dialysis Refused BP Diastolic BP Location Tested BP Systolic BP Type Fetus Heart Rate Present Fetus Movement Comments Flowsheet Date 04/25/2025 Kessler Score Blood Edema Fundus Height Fundus Units Glucose Ketones Leukocytes Nitrite Labor Signs Protein Cervic Dilation Cervic Effacement Cervic Station Type Weight in lbs Pre/Post Dialysis Refused Weight 155.670375899943 BP Diastolic BP Location Tested BP Systolic BP Type 69 L arm 104 sitting Fetus Heart Rate Present Fetus Movement A Yes Comments efw 12 % AC 15% rpt 4 weeks, +FM, lots of stress right now sister was killed, run over by a car, dad newly diagnosed colon cancer, smoking tobacco more than she would like, declines any need for any anxiety or depression medication at this time, planning gct on wednesday, f/u here in 2 weeks or sooner if needed Flowsheet Date 05/11/2025 Kessler Score Blood Edema Fundus Height Fundus Units Glucose Ketones Leukocytes Nitrite Labor Signs Protein Cervic Dilation Cervic Effacement Cervic Station Type Weight in lbs Pre/Post Dialysis Refused Weight 161.402187196301 BP Diastolic BP Location Tested BP Systolic BP Type 63 L arm 97 sitting Fetus Heart Rate Present Fetus Movement A Decreased Comments +FM, reviewed kick counts, u s next visit reviewed blood sugars wnl will bring next visit if ok can stop, precautions and education f/u 2 weeks Flowsheet Date 05/25/2025 Kessler Score Blood Edema Fundus Height Fundus Units Glucose Ketones Leukocytes Nitrite Labor Signs Protein Cervic Dilation Cervic Effacement Cervic Station Type Weight in lbs Pre/Post Dialysis Refused BP Diastolic BP Location Tested BP Systolic BP Type Fetus Heart Rate Present Fetus Movement Comments Flowsheet Date 05/25/2025 Kessler Score Blood Edema Fundus Height Fundus Units Glucose Ketones Leukocytes Nitrite Labor Signs Protein Cervic Dilation Cervic Effacement Cervic Station Type Weight in lbs Pre/Post Dialysis Refused BP Diastolic BP Location Tested BP Systolic BP Type Fetus Heart Rate Present Fetus Movement Comments NST- R with variables bpp8/8 , efw 5%, contractions, reviewed with dr lemus to ld for extended monitoring, +FM, mfm referral sent. reviewed blood sugars no gdm ok to stop Menstrual History Last Menstrual Date Menses Monthly On Bcp Conception Prior Menses Frequency Hcg Plus Date Menarche Onset Age 0410/11/2024 true Delivery Information Delivery Date Delivery Type Labor Anesthesia Weeks Gestation Incision Type Labor Labor Length Hrs Delivered By Post Complications Tubal Sterilization Discharge Date Comments Discharge Information Feeding Method Contraceptive Method Maternal HG B and HCT Levels
--- OUTSIDE RECORDS SUMMARY | 2025-05-25 16:40 | XMS_ITS | Continuity of Care Document ---
Author Organization [facility] [place] Address [address] [place] [address] [place] [address] Care Team Providers Care Court Manager Name Role Phone ISABELLA ARAYA Primary Care Provider Assessment No assessment recorded. Plan of Treatment [...] Imaging US, obstetr ic, follow- up 2024 025 [email or web address] [place] [facility] [address], [place], [address], 04/25/2025 22:03:32 Medication Orders None recorde d. Patient TargetsNo targets recorded. Patient InstructionsNo instructions recorded. Reason for Referral None Reported. Results Created Date Observation Date Name Description Value Unit Range Abnormal Flag Note LastModifiedBy Organization Detail LastModifiedTime 01/12/2001/11/2025 [UNIT Y] ANEUP LOIDY NIPT fraction 6.1% normal Not Available Syd[facility] king [address], [place], [address], 01/11/2025 23:47:04 01/12/20 25 01/11/2025 [UNIT Y] ANEUP LOIDY NIPT 22Q11.2 microdeletio n LOW RISK <1 in 10,000 normal Not Available [facility] [address], [place], [address], 01/11/2025 23:47:04 01/12/20 25 01/11/2025 [UNIT Y] ANEUP LOIDY NIPT sex chromosome aneuploidy NOT DETECT ED normal Not Available [facility] [address], [place], [address], 01/11/2025 23:47:04 01/12/20 25 01/11/2025 [UNIT Y] ANEUP LOIDY NIPT monosomy X LOW RISK <1 in 10,000 normal Not Available [facility] [address], [place], [address], 01/11/2025 23:47:04 01/12/20 25 01/11/2025 [UNIT Y] ANEUP LOIDY NIPT trisomy 13 LOW RISK <1 in 10,000 normal Not Available [facility] [address], [place], [address], 01/11/2025 23:47:04 01/12/20 25 01/11/2025 [UNIT Y] ANEUP LOIDY NIPT trisomy 18 LOW RISK <1 in 10,000 normal Not Available [facility] [address], [place], [address], 01/11/2025 23:47:04 01/12/20 25 01/11/2025 [UNIT Y] ANEUP LOIDY NIPT trisomy 21 LOW RISK <1 in 10,000 normal Not Available [facility] [address], [place], [address], 01/11/2025 23:47:04 01/12/20 25 01/11/2025 [UNIT Y] ANEUP LOIDY NIPT sex MALE normal Not Available [facility] [address], [place], [address], 01/11/2025 23:47:04 01/12/20 25 01/11/2025 [UNIT Y] ANEUP LOIDY NIPT gestation SINGLE TON normal Not Available [facility] [address], [place], [address], 01/11/2025 23:47:04 01/12/20 25 01/11/2025 [UNIT Y] ANEUP LOIDY NIPT for detailed report, see pdf See PDF normal Not Available [facility] [address], [place], [address], 01/11/2025 23:47:04 01/16/20 25 01/15/2025 [UNIT Y] CAIN Mello sickle cell disease/beta -thalassemia /hemoglobino pathies carrier screen NEGATI VE normal Not Available [facility] [address], [place], [address], 01/15/2025 21:16:52 01/16/20 25 01/15/2025 [UNIT Y] CAIN Mello alpha-thalas semia carrier screen NEGATI VE normal Not Available [facility] [address], [place], [address], 01/15/2025 21:16:52 01/16/20 25 01/15/2025 [UNIT Y] CAIN Mello cystic fibrosis carrier screen NEGATI VE normal Not Available [facility] [address], [place], [address], 01/15/2025 21:16:52 01/16/20 25 01/15/2025 [UNIT Y] CAIN Mello spinal muscular atrophy carrier screen NEGATI VE 2 SMN1 copies , SNP not presen t normal Not Available [facility] [address], [place], [address], 01/15/2025 21:16:52 01/16/20 25 01/15/2025 [UNIT Y] CAIN Mello for detailed report, see pdf See PDF normal Not Available [facility] [address], [place], [address], 01/15/2025 21:16:52 01/06/2001/05/2025 HEPAT ITIS B SURFA CE ANTIG EN hepatitis B surface antigen Non-re active non-re active This assay was perfo rmed using [employer] ratio n reage nts and test kits. Value s obtai topher with other assay metho ds or kits canno t be used inter clements eably . Not Available [facility] (Lab) [address], [place], [address], 01/06/2025 12:29:48 01/06/2001/05/2025 HEPAT ITIS C ANTIB EMERSON SCREE N, REFLE X TO CONFI RMATI ON hepatitis C antibody Non-re active non-re active Antib odies to HCV Not Detec sharan, does not exclu de the possi bilit y of expos ure to HCV. Not Available [facility] (Lab) [address], [place], [address], 01/06/2025 12:29:48 01/06/2001/05/2025 HIV 1/2 ANTIG EN/AN TIBOD Y, REFLE X CONFI RMATI ON HIV antigen/anti body Nonrea ctive nonrea ctive HIV-1 antig en and HIV-1 /HIV- 2 antib odies were not detec sharan. No labor atory evide nce of HIV infec tion. Not Available [facility] (Lab) [address], [place], [address], 01/06/2025 12:29:48 01/06/2001/05/2025 CBC W/DIF F WBC 11.5 10'3/ uL 3.5-10 .5 high Not Available [facility] (Lab) [address], [place], [address], 01/06/2025 12:29:49 01/06/20 25 01/05/2025 CBC W/DIF F RBC 4.64 10'6/ uL (based on docume nted legal sex) 3.80-5 .20 Not Available [facility] (Lab) [address], [place], [address], 01/06/2025 12:29:49 01/06/20 25 01/05/2025 CBC W/DIF F HGB 13.4 g/dL (based on docume nted legal sex) 11.6-1 5.4 Not Available [facility] (Lab) [address], [place], [address], 01/06/2025 12:29:49 01/06/20 25 01/05/2025 CBC W/DIF F HCT 41.1 % (based on docume nted legal sex) 34.0-4 5.0 Not Available [facility] (Lab) [address], [place], [address], 01/06/2025 12:29:49 01/06/20 25 01/05/2025 CBC W/DIF F MCV 88.6 fL 80.0-9 9.0 Not Available [facility] (Lab) [address], [place], [address], 01/06/2025 12:29:49 01/06/20 25 01/05/2025 CBC W/DIF F MCH 28.9 pg 27.0-3 4.0 Not Available [facility] (Lab) [address] [place], [address], 01/06/2025 12:29:49 01/06/20 25 01/05/2025 CBC W/DIF F MCHC 32.6 g/dL 32.0-3 5.5 Not Available [facility] (Lab) [address] [place], [address], 01/06/2025 12:29:49 01/06/20 25 01/05/2025 CBC W/DIF F RDW 13.9 % 11.0-1 5.0 Not Available [facility] (Lab) [address], [place], [address], 01/06/2025 12:29:49 01/06/20 25 01/05/2025 CBC W/DIF F plt 281 10'3/ uL 150-40 0 Not Available [facility] (Lab) [address], [place], [address], 01/06/2025 12:29:49 01/06/20 25 01/05/2025 CBC W/DIF F MPV 10.3 fL 8.8-12 .1 Not Available [facility] (Lab) [address], [place], [address], 01/06/2025 12:29:49 01/06/20 25 01/05/2025 CBC W/DIF F NRBC's 0.0 % 0.0 Not Available [facility] (Lab) [address], [place], [address], 01/06/2025 12:29:49 01/06/20 25 01/05/2025 CBC W/DIF F absolute NRBCs 0.0 10'3/ uL no refere nce range establ ished Not Available [facility] (Lab) [address], [place], [address], 01/06/2025 12:29:49 01/06/20 25 01/05/2025 CBC W/DIF F neutrophils 73.3 % 34.0-7 3.0 high Not Available [facility] (Lab) [address], [place], [address], 01/06/2025 12:29:49 01/06/20 25 01/05/2025 CBC W/DIF F lymphocytes 19.4 % 15.0-5 0.0 Not Available [facility] (Lab) [address], [place], [address], 01/06/2025 12:29:49 01/06/20 25 01/05/2025 CBC W/DIF F monocytes 5.0 % 1.0-15 .0 Not Available [facility] ([facility]) [address], [place], [address], 01/06/2025 12:29:49 01/06/20 25 01/05/2025 CBC W/DIF F eosinophils 0.8 % 0.0-8. 0 Not Available [facility] (Lab) [address], [place], [address], 01/06/2025 12:29:49 01/06/20 25 01/05/2025 CBC W/DIF F basophils 0.7 % 0.0-2. 0 Not Available [facility] (Lab) [address], [place], [address], 01/06/2025 12:29:49 01/06/20 25 01/05/2025 CBC W/DIF [...] separ ately if prese nt. Not Available [facility] (Lab) [address], [place], [address], 01/06/2025 12:29:49 01/06/20 25 01/05/2025 CBC W/DIF F absolute neutrophils 8.4 10'3/ uL 1.5-8. 0 high Not Available [facility] (Lab) [address], [place], [address], 01/06/2025 12:29:49 01/06/20 25 01/05/2025 CBC W/DIF F absolute lymphocytes 2.2 10'3/ uL 1.0-4. 0 Not Available [facility] ([facility]) [address], [place], [address], 01/06/2025 12:29:49 01/06/20 25 01/05/2025 CBC W/DIF F absolute monocytes 0.6 10'3/ uL 0.2-1. 0 Not Available [facility] (Lab) [address], [place], [address], 01/06/2025 12:29:49 01/06/20 25 01/05/2025 CBC W/DIF F absolute eosinophils 0.1 10'3/ uL 0.0-0. 6 Not Available [facility] ([facility]) [address], [place], [address], 01/06/2025 12:29:49 01/06/20 25 01/05/2025 CBC W/DIF F absolute basophils 0.1 10'3/ uL 0.0-0. 3 Not Available [facility] ([facility]) [address], [place], [address], 01/06/2025 12:29:49 01/06/2001/05/2025 CBC W/DIF F absolute immature granulocytes 0.1 10'3/ uL 0.00-0 .10 Refer ence range s for nonbi nary/ inter sex or unspe cifie d gende r patie nts have not been estab lishe d. Pleadrien e refer to the genieo wing table for range s estab lishe d for cisge nder patie nts and evalu ate in the clini cesar omkar xt of the indiv idual patie nt: https ://la brady book. nm.or g/gen derx Not Available [facility] (Lab) [address], [place], [address], 01/06/2025 12:29:49 01/06/20 25 01/05/2025 RUBEL LA IGG ANTIB EMERSON, QUANT rubella antibodies, IgG Reacti ve reacti ve Not Available [facility] (Lab) [address], [place], [address], 01/06/2025 12:29:49 01/06/20 25 01/05/2025 RUBEL LA IGG ANTIB EMERSON, QUANT rubella antibodies, IgG quant 32.5 IU/mL >=10 Non-r eacti ve (Non- Immun e) <10 IU/mL React cameron (Immu ne) > or = 10 IU/mL Not Available [facility] (Lab) [address], [place], [address], 01/06/2025 12:29:49 01/06/20 25 01/05/2025 TYPE/ RH/SC REEN ABO/Rh type O NEG Not Available [facility] (Lab) [address], [place], [address], 01/06/2025 12:29:49 01/06/20 25 01/05/2025 TYPE/ RH/SC REEN antibody screen NEG Not Available [facility] (Lab) [address], [place], [address], 01/06/2025 12:29:49 01/06/20 25 01/05/2025 TYPE/ RH/SC REEN exp date 2024 23:59 Not Available [facility] (Lab) [address], [place], [address], 01/06/2025 12:29:49 01/06/20 25 01/05/2025 HEMOG LOBIN A1C hemoglobin A1C 5.3 % 4.0-5. 6 The Ameri can [employer]abe joselyn [employer] iatio n recom mends that a prima ry goal of thera py isadora richardson be a HBA1C of < 7% and that physi cians shoul d reeva luate the treat ment regim en in patie nts with HBA1C value s consi stent ly > 8%. <5.7% Aide l 5.7 - 6.4% Incre ased risk for diabe joselyn >=6.5 % Diagn ostic of diabe joselyn <7.0% Goal of thera py >8.0% Actio n sugge sted Not Available [facility] (Lab) [address], [place], [address], 01/06/2025 12:29:50 01/06/20 25 01/05/2025 RPR SCREE N, REFLE X TITER /CONF IRMAT ION RPR qualitative Nonrea ctive nonrea ctive Not Available [facility] (Lab) [address], [place], [address], 01/06/2025 12:29:50 01/06/20 25 01/05/2025 CULTU RE: URINE result report SEE RESULT S BELOW Test: Cultu re: Urine Speci men Sourc e: Urine Voide d Speci men Type: Urine Speci men Date: 2024 1619 Resul t Date: 2024 0615 Resul t Statu s: Final resul t Abnor mal: No Resul ting Lab: [facility] [address] [facility] [address] Tel: CULTU RE ----- ----- ----- --- No growt h in 1 day (dete ction level of 10,00 0 colon ies / ml.) Not Available [facility] (Lab) [address], [place], [address], 01/07/2025 07:18:53 01/06/20 25 01/08/2025 US, obste tric, nucha l trans lucen cy No observ ation record ed. [email or web address] [place] [address], [place], [address], 01/08/2025 12:15:22 01/06/20 25 01/05/2025 US, obste tric, follo w-up No observ ation record ed. [email or web address] [facility] [address], [place], [address], 01/08/2025 09:36:03 02/29/20 25 02/28/2025 US, obste tric, 2nd or 3rd trime ster No observ ation record ed. [email or web address] [place] [address], [place], [address], 02/28/2025 18:22:40 02/29/20 25 02/28/2025 US, obste tric, 2nd or 3rd trime ster No observ ation record ed. [email or web address] [address], [place], [address], 03/02/2025 10:53:01 03/28/20 25 03/28/2025 US, obste tric, follo w-up No observ ation record ed. [facility] [address], [place], [address], 03/28/2025 13:44:08 03/28/20 25 03/28/2025 US, obste tric, follo w-up No observ ation record ed. [email or web address] [address], [place], [address], 04/02/2025 20:59:08 04/25/20 25 04/25/2025 US, obste tric, follo w-up No observ ation record ed. [email or web address] [place] [address] [address], [place], [address], 04/25/2025 12:09:39 04/25/20 25 04/25/2025 US, obste tric, follo w-up No observ ation record ed. [email or web address] [address], [place], [address], 05/03/2025 10:21:35 05/25/20 25 05/25/2025 US, obste tric, follo w-up No observ ation record ed. [email or web address] [address], [place], [address], 05/25/2025 13:42:24 05/25/20 25 05/25/2025 US, obste tric, follo w-up No observ ation record ed. [facility] [address], [place], [address], 05/25/2025 13:46:54 05/25/20 25 05/25/2025 US, doppl er, umbil ical arter y veloc imetr y No observ ation record ed. [facility] [address], [place], [address], 05/25/2025 13:47:07 05/25/20 25 05/25/2025 US, obste tric, bioph ysica l profi le + non-s tress test No observ ation record ed. [facility] [address], [place], [address], 05/25/2025 13:47:17 Result Notes None recorded. Problems Name Problem SNOMED Code Status Onset Date Resolution Date Notes Provider Name and Address Organization Details Recorded Time Past history of premature delivery 164338209 Active 202412/24/2024 delivered at 35wks Sanjuana Berry null, [facility] 20:34:59 Polycysti c ovary syndrome 719282758 Active 2024 Sanjuana Berry [facility], [facility] 20:35:15 Hyperchol esterolem ia 73724175 Active 2024 Sanjuana Berry [facility], [facility] 20:35:40 21762873 Active 2024 Nicolasa Stokes null, [facility] 5 12:19:49 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 180839886 Active 2024 O-, needs rhogam at 28 wks Gema Brewer null, [facility] 5 11:21:29 Multigrav jazmine of advanced maternal age 424523744 Active 2024 Priya Palacio null, [facility] 5 14:14:49 Problem Notes None recorded. Procedures Surgical History Date Name Laterality Status Provider Name and Address Organization Details Recorded Time 08/24/2023 Date of Last Pap Smear completed Nicolasa Stokes [facility] 01/05/2025 12:19:24 Imaging Results None recorded. Procedure Notes None recorded. Medical Equipment None Reported. Allergies Allergen ID Allergen Name Allergen Category Reaction Reaction Severity Criticality Documentation Date Start Date Code Code System Note Provider Name and Address Organization Details Recorded Time amoxicill in medicatio n anaphylax is Not available high 08/24/2023 723 RxNorm Mallorie castillo, [facility]- [address], [place], [address] [place] [address], [facility] 17:45:51 Medications Name Sig Start Date Stop [...] Not Available Not Available No t Available PRODUCTION ESTIMATOR-PNV-DHA 28 mg iron-1 mg-200 mg capsule Take [...] Available Not Available No t Available Vitals Date Recorded Body height Body mass index (BMI) Body weight Systolic And Diastolic Provider Name and Address Organization Details Last Updated DateTime 04/25/2025 170.18 cm 24.3 kg/m2 72542.82 g 104/69 mm[Hg] Tana Carlisle [facility] 04/25/2025 11:45:22 Social History Question Answer Notes LastModified by Organizat ion Details LastModified Time Tobacco Smoking Status Current Every Day Smoker Nicolasa marquez, [facility] 08/24/2023 17:27:19 Do You Have An Advance Directive? No [email or web address] Information not available 02/02/2025 If You Are , What Was Your Level Of Alcohol Consumption Prior To ? Occasional Information not available 12/13/2024 Are You Blind Or Do You Have Difficulty Seeing? No Information not available 08/24/2023 What Is Your Level Of Caffeine Consumption? Moderate [email or web address] Information not available 12/13/2024 How Much Tobacco Do You Chew? None [email or web address] Information not available 02/02/2025 In The 14 [...] Or The Highest Degree You Have Received? HL16106-1 Information not available 08/24/2023 Are There Any [...] Age Did You Start Smoking Tobacco? 14 Information not available 02/02/2025 How Much Tobacco Do You Smoke? 0.5 PPD Information not available 08/24/2023 Do You Use Sunscreen Routinely? Yes Information not available 08/24/2023 Has Tobacco Cessation Counseling Been Provided? No [email or web address] Information not available 04/25/2025 How Many Years Have You Smoked Tobacco? 15 Information not available 02/02/2025 Have You Used IV Drugs? No [email or web address] Information not available 02/02/2025 Do You Have Difficulty Walking Or Climbing Stairs? No Information not available 08/24/2023 Sex: Unknown Functional Status Question Answer Note LastModified by Organizat ion Details LastModified Time Do you use any illicit or recreational drugs? Yes [email or web address] Information not available 02/28/2025 Do you or have you ever used any other forms of tobacco or nicotine? Yes [email or web address] Information not available 12/13/2024 What is your level of alcohol consumption? None Information not available 08/24/2023 Are you currently employed? No Information not available 08/24/2023 Are you able to walk independently without assistance or assistive devices? [email or web address] Information not available 08/24/2023 Are you able to care for yourself independently? 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 [id number] Information not available 08/24/2023 Family History Relationship [...] (Food, seasonal, environmental ) N Other Y Drug/Latex Allergies/Reactions N Blood Transfusion N Breast [...] ICD10 Code Diagnosis IMO Codes Diagnosis Note [id number] Kit Lemus MD [place] [address] [address] 03/28/2025 10:52:36 03/28/2025 11:44:44 care status 007096315 O36.5920 Z3A.24 [id number] [facility] [address] [place] [address] 03/28/2025 10:52:53 03/28/2025 12:30:45 Gestation period, 24 weeks 420845477 Z3A.24 8937765 [id number] Kit Lemus MD [place] [address] [place] [address] 04/25/2025 10:59:22 04/25/2025 11:47:05 care status 391240542 O36.5930 Z3A.28 [id number] [id number] [facility] [address] [place] [address] 04/25/2025 10:59:58 04/25/2025 13:29:42 Gestation period, 28 weeks 78091997 Z3A.28 [id number] Health Concerns Section Related Observation LastModified by Organization Detai ls LastModified Time None Recorded Concern Status LastModified by Organization Details LastModified Time None Recorded Payers Encounter Date Sequence Insurance Name Policy Number Policy Hicks Covered Member ID Hicks Member ID Guarantor Name 04/25/2025 1 [facility] (MEDICAID HMO) [id number] Laurel Quezada [id number] Laurel Will Notes Date Note Type Note Provider Name and Address Organization Details Recorded Time 04/25/2025 text/html Generic HPI TemplateReported by Patient Tana Carlisle [facility] 04/25/2025 16:36:37 OBGyn Episode Ob Episode Information Episode Created Date Number of Fetuses Patient Bloodtype Patient rh Status Prepregnancy Weight lbs Domestic Partner Domestic Partner Phone Father Name Lead Pony Rider Status 01/06/20 25 1 O Negative Kev OPEN Fetus Data First Name Last Name Admitted to NICU Weight (g) Sex Living Outcome Pediatric Complications Fetus ID Race Codes Race Delivery Type [id number] Problems Problem Notes unsure if nsts for elevate b lood pressure- start bASA Problem Name Start Date End Date Resolution Snomed Code Not e 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 01/08/2025 777416719 O-, ne eds rhogam at 28 wks Multigravida of advanced maternal age 0702/06/2025 356270520 Rufino Calculation Initial Rufino Date Initial Exam [...] Weight in lbs Pre/Post Dialysis Refused Weight 134.28745142128 BP Diastolic BP Location Tested BP Systolic [...] Weight in lbs Pre/Post Dialysis Refused Weight 140.190713644980 BP Diastolic BP Location Tested BP Systolic [...] Weight in lbs Pre/Post Dialysis Refused Weight 146.750454003082 BP Diastolic BP Location Tested BP Systolic [...] Weight in lbs Pre/Post Dialysis Refused Weight 150.365098547341 BP Diastolic BP Location Tested BP Systolic [...] Weight in lbs Pre/Post Dialysis Refused Weight 155.604259642536 BP Diastolic BP Location Tested BP Systolic [...] Weight in lbs Pre/Post Dialysis Refused Weight 161.358972159031 BP Diastolic BP Location Tested BP Systolic [...]
--- OUTSIDE RECORDS SUMMARY | 2025-05-25 16:40 | XMS_ITS | Data Portability ---
Author Organization [facility] [place] Address [address] [place] [address] [place] [address] Care Team Providers Care Printed Forms Proofreader Name Role Phone ISABELLA ARAYA Primary Care Provider Assessment Encounter Date Assessment Date Assessment LastModified by Organization Details LastModified Time 04/25/2025 04/25/2025 Patient is _28__weeks . Discussed plan. [email or web address] Not available 04/25/2025 11:48:41 05/11/2025 05/11/2025 Patient is _30__weeks . Discussed plan. [email or web address] Not available 05/11/2025 11:07:58 Plan of Treatment Reminders Order Date Submit [...] obstetr ic, follow- up 2024 025 [email or web address] [place], [place], [address], 05/25/2025 17:35:59 US, doppler , umbilic al artery velocim etry 2024 025 [email or web address] [place], [address], [place], [address], 05/25/2025 17:35:59 US, obstetr ic, biophys ical profile + non-str ess test 2024 025 [email or web address] [place], [address], [place], [address], 05/25/2025 17:35:59 US, obstetr ic, follow- up 2024 025 [email or web address] [place], [place], [address], 04/25/2025 22:03:32 Medication Orders None recorde d. Patient TargetsNo targets recorded. Patient InstructionsNo instructions recorded. Reason for Referral None Reported. Results Created Date Observation Date Name Description Value Unit Range Abnormal Flag Note LastModifiedBy Organization Detail LastModifiedTime 03/28/2003/28/2025 US, obste tric, follo w-up No observ ation record ed[facility] [address], [place], [address], 03/28/2025 13:44:08 03/28/2003/28/2025 US, obste tric, follo w-up No observ ation record ed. [email or web address] Justine [address], [place], [address], 04/02/2025 20:59:08 04/25/2004/25/2025 , obste tric, follo w-up No observ ation record ed. [email or web address] [place] [address], [place], [address], 04/25/2025 12:09:39 04/25/2004/25/2025 US, obste tric, follo w-up No observ ation record ed. [email or web address] Justine [address], [place], [address], 05/03/2025 10:21:35 05/25/20 25 05/25/2025 US, obste tric, follo w-up No observ ation record ed. howie Fletcher [address], [place], [address], 05/25/2025 13:42:24 05/25/20 25 05/25/2025 US, obste tric, follo w-up No observ ation record ed. [facility] [address], [place], [address], 05/25/2025 13:46:54 05/25/20 25 05/25/2025 US, doppl er, umbil ical arter y veloc imetr y No observ ation record ed. [facility] [address], [place], [address], 05/25/2025 13:47:07 05/25/20 25 05/25/2025 US, obste tric, bioph ysica l profi le + non-s tress test No observ ation record ed. [facility] [address], [place], [address], 05/25/2025 13:47:17 Result Notes None recorded. Problems Name Problem SNOMED Code Status Onset Date Resolution Date Notes Provider Name and Address Organization Details Recorded Time Past history of premature delivery 152685344 Active 202412/24/2024 delivered at 35wks Sanjuana marquez, [facility] 20:34:59 Polycysti c ovary syndrome 988683172 Active 2024 Sanjuana marquez [facility] 20:35:15 Hyperchol esterolem ia 93877939 Active 2024 Sanjuana marquez, [facility] 20:35:40 17796857 Active 2024 Nicolasa marquez, [facility] 5 12:19:49 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 346457510 Active 2024 O-, needs rhogam at 28 wks Gema Brewer [facility], [facility] 5 11:21:29 Multigrav jazmine of advanced maternal age 616715705 Active 2024 Priya Palacio null, [facility] 5 14:14:49 Problem Notes None recorded. Procedures Surgical History Date Name Laterality Status Provider Name and Address Organization Details Recorded Time 08/24/2023 Date of Last Pap Smear completed Nicolasa Stokes [facility] 01/05/2025 12:19:24 Imaging Results None recorded. Procedure Notes None recorded. Medical Equipment None Reported. Allergies Allergen ID Allergen Name Allergen Category Reaction Reaction Severity Criticality Documentation Date Start Date Code Code System Note Provider Name and Address Organization Details Recorded Time 17756 amoxicill in medicatio n anaphylax is Not available high 08/24/2023 723 RxNorm Mallorie castillo, [facility]- [address], [place], [address] [place] [address], [facility] 4 17:45:51 Medications Name Sig Start [...] Not Available Not Available No t Available [employer]MENT [employer]ASING [employer]ENT-PNV-DHA 28 mg iron-1 mg-200 mg capsule Take [...] Updated DateTime 04/25/2025 170.18 cm 24.3 kg/m2 25454.82 g 104/69 mm[Hg] Tana Carlisle [facility] 04/25/2025 11:45:22 Date Recorded Body height Body mass index (BMI) Body weight Systolic And Diastolic Provider Name and Address Organization Details Last Updated DateTime 05/11/2025 170.18 cm 25.2 kg/m2 25598.37 g 97/63 mm[Hg] Nicolasa Stokes [facility] 05/11/2025 10:59:12 Social History Question Answer Notes LastModified by Organizat ion Details LastModified Time Tobacco Smoking Status Current Every Day Smoker Nicolasa Stokes null, [facility] 08/24/2023 17:27:19 Do You Have An Advance Directive? No [email or web address] Information not available 02/02/2025 If You Are , What Was Your Level Of Alcohol Consumption Prior To ? Occasional [email or web address] Information not available 12/13/2024 Are You Blind Or Do You Have Difficulty Seeing? No Information not available 08/24/2023 What Is Your Level Of Caffeine Consumption? Moderate [email or web address] Information not available 12/13/2024 How Much Tobacco Do You Chew? None [email or web address] Information not available 02/02/2025 In The 14 [...] Or The Highest Degree You Have Received? [id number] Information not available 08/24/2023 Are There Any [...] Age Did You Start Smoking Tobacco? 14 [email or web address] Information not available 02/02/2025 How Much Tobacco Do You Smoke? 0.5 PPD Information not available 08/24/2023 Do You Use Sunscreen Routinely? Yes Information not available 08/24/2023 Has Tobacco Cessation Counseling Been Provided? No [email or web address] Information not available 04/25/2025 How Many Years Have You Smoked Tobacco? 15 [email or web address] Information not available 02/02/2025 Have You Used IV Drugs? No [email or web address] Information not available 02/02/2025 Do You Have Difficulty Walking Or Climbing Stairs? No Information not available 08/24/2023 Sex: Unknown Functional Status Question Answer Note LastModified by Organizat ion Details LastModified Time Do you use any illicit or recreational drugs? Yes [email or web address] Information not available 02/28/2025 Do you or have you ever used any other forms of tobacco or nicotine? Yes [email or web address] Information not available 12/13/2024 What is your level of alcohol consumption? None Information not available 08/24/2023 Are you currently employed? No Information not available 08/24/2023 Are you able to walk independently without assistance or assistive devices? [email or web address] Information not available 08/24/2023 Are you able to care for yourself independently? 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 No Information not available 08/24/2023 Do you or have you ever used e-cigarettes or vape? Former user of electronic cigarettes [email or web address] Information not available 12/13/2024 What is your exercise level? Occasional Information not available 03/28/2025 Mental Status Question Answer Note LastModified by Organization D etails LastModified Time Do you feel stressed (tense, restless, nervous, or anxious, or unable to sleep at night)? [id number] Information not available 08/24/2023 Family History Relationship [...] ICD10 Code Diagnosis IMO Codes Diagnosis Note [id number] Mallorie Ramos , [facility] [address] [address] 08/24/2023 16:43:08 08/24/2023 18:22:45 Gynecologic examination 22011229 Z01.419 Take Calcium with Vitamin D 1200mg [...] Dexa Screen na Routine Labs PCP Menorrhagia 910387389 N9 2.0 Discussed all control options and [...] more about ablation will need MD consult. [id number] Kit Lemus MD [place] [address],[place] [address] 12/13/2024 13:52:04 12/13/2024 14:44:31 [id number] [facility] [address],[place] [address] 12/13/2024 13:52:20 12/13/2024 16:54:31 Amenorrhea 48767766 N91.2 93436 pap up to datelabs with nipt at 12 weekseduca tion and precaution sf/u 3 weeks new ob and first look [id number] Kit Lemus MD [place] [address],[place] [address] 01/05/2025 11:38:33 01/05/2025 12:07:37 screening 286354828 Z36.82 Z3A.12 397865 [id number] [facility] [address],[place] [address] 01/05/2025 11:38:58 01/05/2025 13:17:09 Gestation period, 12 weeks 29378381 Z3A.12 2030136 [id number] [facility] [address],[place] [address] 02/02/2025 15:20:11 02/02/2025 15:52:47 Gestation period, 16 weeks 76517102 Z3A.16 3075784 cont pnv [id number] Kit Lemus MD [place] [address],[place] [address] 02/28/2025 15:15:51 02/28/2025 16:20:57 Ultrasound scan - obstetric 801032796 Z36.3 Z3A.20 56852 [id number] [facility] [address],[place] [address] 02/28/2025 15:16:07 02/28/2025 17:09:02 Gestation period, 20 weeks 61905538 Z3A.20 4591305 cont pnv [id number] Kit Lemus MD [place] [address],[place] [address] 03/28/2025 10:52:36 03/28/2025 11:44:44 care status 542940203 O36.5920 Z3A.24 933034 [id number] Mitzi Gary [facility] [address],[place] [address] 03/28/2025 10:52:53 03/28/2025 12:30:45 Gestation period, 24 weeks 224758219 Z3A.24 7364066 [id number] Kit Lemus MD [place] [address],[place] [address] 04/25/2025 10:59:22 04/25/2025 11:47:05 care status 783117412 O36.5930 Z3A.28 608337 [id number] Mitzi Gary [facility] [address],[place] [address] 04/25/2025 10:59:58 04/25/2025 13:29:42 Gestation period, 28 weeks 67618422 Z3A.28 6632109 [id number] Mitzi Gary [facility] [address],[place] [address] 05/11/2025 10:40:50 05/11/2025 11:22:29 Gestation period, 30 weeks 83810596 Z3A.30 7617348 cont pnv [id number] Kit Lemus MD [place] [address],[place] [address] 05/25/2025 10:49:25 05/25/2025 12:11:16 Poor growth affecting management 105365636 O36.5990 O09.523 Z3A.32 92220841 [id number] Mitzi Gary [facility] [address],[place] [address] 05/25/2025 10:49:47 05/25/2025 12:30:07 Gestation period, 32 weeks 3701093 Z3A.32 2948203 Poor growth affecting management 183925042 O36.5990 [id number] Health Concerns Section Related Observation LastModified by Organization Detai ls LastModified Time None Recorded Concern Status LastModified by Organization Details LastModified Time None Recorded Advance Directives Directive N: Payers Insurance Date Sequence Insurance Name Policy Number Policy Hicks Covered Member ID Hicks Member ID Guarantor Name 05/22/2025 1 [facility] (MEDICAID HMO) [id number] Laurel Will [id number] Laurel Will Notes Date Note Type Note Provider Name and Address Organization Details Recorded Time 04/25/2025 text/html Generic HPI TemplateReported by Patient Tana marquez, [facility] 04/25/2025 16:36:37 05/11/2025 text/html Generic HPI TemplateReported by Patient Mitzi Gary CNM [address], [place], [address], [facility] 05/11/2025 11:19:32 OBGyn Episode Ob Episode Information Episode Created Date Number of Fetuses Patient Bloodtype Patient rh Status Prepregnancy Weight lbs Domestic Partner Domestic Partner Phone Father Name Internal Revenue Agent Status 08/24/19 24 1 CLOSED Fetus Data First Name Last Name Admitted to NICU Weight (g) Sex Living Outcome Pediatric Complications Fetus ID Race Codes Race Delivery Type 1814.36 8 F Full Term 41956 Vaginal Delivery Rufino Calculation Initial Rufino Date [...] Complications Tubal Sterilization Discharge Date Comments 0 35 Discharge Information Feeding Method Contraceptive Method Maternal HG B and HCT Levels Ob Episode Information Episode Created Date Number of Fetuses Patient Bloodtype Patient rh Status Prepregnancy Weight lbs Domestic Partner Domestic Partner Phone Father Name Internal Revenue Agent Status 01/06/20 25 1 O Negative Kev OPEN Fetus Data First Name Last Name Admitted to NICU Weight (g) Sex Living Outcome Pediatric Complications Fetus ID Race Codes Race Delivery Type [id number] Problems Problem Notes unsure if nsts for elevate b lood pressure- start bASA Problem Name Start Date End Date Resolution Snomed Code Not e 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 01/08/2025 532176032 O-, ne eds rhogam at 28 wks Multigravida of advanced maternal age 0702/06/2025 586081152 Rufino Calculation Initial Rufino Date Initial Exam [...] Weight in lbs Pre/Post Dialysis Refused Weight 134.54266379693 BP Diastolic BP Location Tested BP Systolic [...] Weight in lbs Pre/Post Dialysis Refused Weight 140.208798211839 BP Diastolic BP Location Tested BP Systolic [...] Weight in lbs Pre/Post Dialysis Refused Weight 146.443420478328 BP Diastolic BP Location Tested BP Systolic [...] Weight in lbs Pre/Post Dialysis Refused Weight 150.091244772142 BP Diastolic BP Location Tested BP Systolic [...] Weight in lbs Pre/Post Dialysis Refused Weight 155.511665641337 BP Diastolic BP Location Tested BP Systolic [...] Weight in lbs Pre/Post Dialysis Refused Weight 161.139552405358 BP Diastolic BP Location Tested BP Systolic [...] Domestic Partner Domestic Partner Phone Father Name Internal Revenue Agent Status 08/24/19 24 1 CLOSED Fetus Data First Name Last Name Admitted to NICU Weight (g) Sex Living Outcome Pediatric Complications Fetus ID Race Codes Race Delivery Type 2721.55 2 M Full Term [id number] Vaginal Delivery Rufino Calculation Initial Rufino Date [...]
--- OUTSIDE RECORDS SUMMARY | 2025-05-25 16:40 | XMS_ITS | Continuity of Care Document ---
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 Discussed plan. Not available 02/28/2025 17:07:07 Plan of Treatment Reminders Order Date Submit [...] Not Available Sydnee king [address], [place], [address], 01/11/2025 23:47:04 01/12/20 25 01/11/2025 [UNIT Y] ANEUP LOIDY NIPT 22Q11.2 microdeletio n LOW RISK <1 in 10,000 normal Not Available [facility] [address], [place], [address], 01/11/2025 23:47:04 01/12/20 25 01/11/2025 [UNIT Y] ANEUP LOIDY NIPT sex chromosome aneuploidy NOT DETECT ED normal Not Available [facility] [address], [place], [address], 01/11/2025 23:47:04 01/12/20 25 01/11/2025 [UNIT Y] ANEUP LOIDY NIPT monosomy X LOW RISK <1 in 10,000 normal Not Available [facility] [address], [place], [address], 01/11/2025 23:47:04 01/12/20 25 01/11/2025 [UNIT Y] ANEUP LOIDY NIPT trisomy 13 LOW RISK <1 in 10,000 normal Not Available [facility] [address], [place], [address], 01/11/2025 23:47:04 01/12/20 25 01/11/2025 [UNIT Y] ANEUP LOIDY NIPT trisomy 18 LOW RISK <1 in 10,000 normal Not Available [facility] [address], [place], [address], 01/11/2025 23:47:04 01/12/20 25 01/11/2025 [UNIT Y] ANEUP LOIDY NIPT trisomy 21 LOW RISK <1 in 10,000 normal Not Available [facility] [address], [place], [address], 01/11/2025 23:47:04 01/12/20 25 01/11/2025 [UNIT Y] ANEUP LOIDY NIPT sex MALE normal Not Available [facility] [address], [place], [address], 01/11/2025 23:47:04 01/12/20 25 01/11/2025 [UNIT Y] ANEUP LOIDY NIPT gestation SINGLE TON normal Not Available [facility] [address], [place], [address], 01/11/2025 23:47:04 01/12/20 25 01/11/2025 [UNIT Y] ANEUP LOIDY NIPT for detailed report, see pdf See PDF normal Not Available [facility] [address], [place], [address], 01/11/2025 23:47:04 01/16/20 25 01/15/2025 [UNIT Y] CAIN Mello sickle cell disease/beta -thalassemia /hemoglobino pathies carrier screen NEGATI VE normal Not Available [facility] [address], [place], [address], 01/15/2025 21:16:52 01/16/20 25 01/15/2025 [UNIT Y] CAIN Mello alpha-thalas semia carrier screen NEGATI VE normal Not Available [facility] [address], [place], [address], 01/15/2025 21:16:52 01/16/20 25 01/15/2025 [UNIT Y] CAIN Mello cystic fibrosis carrier screen NEGATI VE normal Not Available [facility] [address], [place], [address], 01/15/2025 21:16:52 01/16/20 25 01/15/2025 [UNIT Y] CAIN Mello spinal muscular atrophy carrier screen NEGATI VE 2 SMN1 copies , SNP not presen t normal Not Available [facility] [address], [place], [address], 01/15/2025 21:16:52 01/16/20 25 01/15/2025 [UNIT Y] CAIN Mello for detailed report, see pdf See PDF normal Not Available [facility] [address], [place], [address], 01/15/2025 21:16:52 01/06/2001/05/2025 HEPAT ITIS B SURFA CE ANTIG EN hepatitis B surface antigen Non-re active non-re active This assay was perfo rmed using [employer] ratio n reage nts and test kits. Value s obtai topher with other assay metho ds or kits canno t be used inter clements eably . Not Available [facility] (Lab) [address] , [place], [address], 01/06/2025 12:29:48 01/06/2001/05/2025 HEPAT ITIS C ANTIB EMERSON SCREE N, REFLE X TO CONFI RMATI ON hepatitis C antibody Non-re active non-re active Antib odies to HCV Not Detec sharan, does not exclu de the possi bilit y of expos ure to HCV. Not Available [facility] (Lab) [address] , [place], [address], 01/06/2025 12:29:48 01/06/2001/05/2025 HIV 1/2 ANTIG EN/AN TIBOD Y, REFLE X CONFI RMATI ON HIV antigen/anti body Nonrea ctive nonrea ctive HIV-1 antig en and HIV-1 /HIV- 2 antib odies were not detec sharan. No labor atory evide nce of HIV infec tion. Not Available [facility] (Lab) [address] , [place], [address], 01/06/2025 12:29:48 01/06/2001/05/2025 CBC W/DIF F WBC 11.5 10'3/ uL 3.5-10 .5 high Not Available [facility] (Lab) [address], [place], [address], 01/06/2025 12:29:49 01/06/20 25 01/05/2025 CBC W/DIF F RBC 4.64 10'6/ uL (based on docume nted legal sex) 3.80-5 .20 Not Available [facility] (Lab) [address] [facility], [place], [address], 01/06/2025 12:29:49 01/06/20 25 01/05/2025 CBC W/DIF F HGB 13.4 g/dL (based on docume nted legal sex) 11.6-1 5.4 Not Available [facility] (Lab) [address] [facility], [place], [address], 01/06/2025 12:29:49 01/06/20 25 01/05/2025 CBC W/DIF F HCT 41.1 % (based on docume nted legal sex) 34.0-4 5.0 Not Available [facility] (Lab) [address] [facility], [place], [address], 01/06/2025 12:29:49 01/06/20 25 01/05/2025 CBC W/DIF F MCV 88.6 fL 80.0-9 9.0 Not Available [facility] (Lab) [address] [facility], [place], [address], 01/06/2025 12:29:49 01/06/20 25 01/05/2025 CBC W/DIF F MCH 28.9 pg 27.0-3 4.0 Not Available [facility] (Lab) [address] [facility], [place], [address], 01/06/2025 12:29:49 01/06/20 25 01/05/2025 CBC W/DIF F MCHC 32.6 g/dL 32.0-3 5.5 Not Available [facility] (Lab) [address] [facility], [place], [address], 01/06/2025 12:29:49 01/06/20 25 01/05/2025 CBC W/DIF F RDW 13.9 % 11.0-1 5.0 Not Available [facility] (Lab) [address] [facility], [place], [address], 01/06/2025 12:29:49 01/06/20 25 01/05/2025 CBC W/DIF F plt 281 10'3/ uL 150-40 0 Not Available [facility] (Lab) [address], [place], [address], 01/06/2025 12:29:49 01/06/20 25 01/05/2025 CBC W/DIF F MPV 10.3 fL 8.8-12 .1 Not Available [facility] (Lab) [address], [place], [address], 01/06/2025 12:29:49 01/06/20 25 01/05/2025 CBC W/DIF F NRBC's 0.0 % 0.0 Not Available [facility] (Lab) [address], [place], [address], 01/06/2025 12:29:49 01/06/20 25 01/05/2025 CBC W/DIF F absolute NRBCs 0.0 10'3/ uL no refere nce range establ ished Not Available [facility] (Lab) [address], [place], [address], 01/06/2025 12:29:49 01/06/20 25 01/05/2025 CBC W/DIF F neutrophils 73.3 % 34.0-7 3.0 high Not Available [facility] (Lab) [address] , [place], [address], 01/06/2025 12:29:49 01/06/20 25 01/05/2025 CBC W/DIF F lymphocytes 19.4 % 15.0-5 0.0 Not Available [facility] (Lab) [address] [facility], [place], [address], 01/06/2025 12:29:49 01/06/20 25 01/05/2025 CBC W/DIF F monocytes 5.0 % 1.0-15 .0 Not Available [facility] (Lab) [address] [facility], [place], [address], 01/06/2025 12:29:49 01/06/20 25 01/05/2025 CBC W/DIF F eosinophils 0.8 % 0.0-8. 0 Not Available [facility] (Lab) [address] [facility], [place], [address], 01/06/2025 12:29:49 01/06/20 25 01/05/2025 CBC W/DIF F basophils 0.7 % 0.0-2. 0 Not Available [facility] (Lab) [address] [facility], [place], [address], 01/06/2025 12:29:49 01/06/20 25 01/05/2025 CBC W/DIF [...] separ ately if prese nt. Not Available [facility] (Lab) [address] [facility], [place], [address], 01/06/2025 12:29:49 01/06/20 25 01/05/2025 CBC W/DIF F absolute neutrophils 8.4 10'3/ uL 1.5-8. 0 high Not Available [facility] (Lab) [address] [facility], [place], [address], 01/06/2025 12:29:49 01/06/20 25 01/05/2025 CBC W/DIF F absolute lymphocytes 2.2 10'3/ uL 1.0-4. 0 Not Available [facility] (Lab) [address] [facility], [place], [address], 01/06/2025 12:29:49 01/06/20 25 01/05/2025 CBC W/DIF F absolute monocytes 0.6 10'3/ uL 0.2-1. 0 Not Available [facility] (Lab) [address], [place], [address], 01/06/2025 12:29:49 01/06/20 25 01/05/2025 CBC W/DIF F absolute eosinophils 0.1 10'3/ uL 0.0-0. 6 Not Available [facility] (Lab) [address], [place], [address], 01/06/2025 12:29:49 01/06/20 25 01/05/2025 CBC W/DIF F absolute basophils 0.1 10'3/ uL 0.0-0. 3 Not Available [facility] (Lab) [address], [place], [address], 01/06/2025 12:29:49 01/06/20 25 01/05/2025 CBC W/DIF [...] caballero book. nm.or g/gen derx Not Available [facility] (Lab) [address], [place], [address], 01/06/2025 12:29:49 01/06/20 25 01/05/2025 RUBEL LA IGG ANTIB EMERSON, QUANT rubella antibodies, IgG Reacti ve reacti ve Not Available [facility] (Lab) [address], [place], [address], 01/06/2025 12:29:49 01/06/20 25 01/05/2025 RUBEL LA IGG ANTIB EMERSON, QUANT rubella antibodies, IgG quant 32.5 IU/mL >=10 Non-r eacti ve (Non- Immun e) <10 IU/mL React cameron (Immu ne) > or = 10 IU/mL Not Available [facility] (Lab) [address] [facility], [place], [address], 01/06/2025 12:29:49 01/06/20 25 01/05/2025 TYPE/ RH/SC REEN ABO/Rh type O NEG Not Available [facility] (Lab) [address] [facility], [place], [address], 01/06/2025 12:29:49 01/06/20 25 01/05/2025 TYPE/ RH/SC REEN antibody screen NEG Not Available [facility] (Lab) [address] [facility], [place], [address], 01/06/2025 12:29:49 01/06/20 25 01/05/2025 TYPE/ RH/SC REEN exp date 2024 23:59 Not Available [facility] (Lab) [address] [facility], [place], [address], 01/06/2025 12:29:49 01/06/20 25 01/05/2025 HEMOG LOBIN [...] >8.0% Actio n sugge sted Not Available [facility] (Lab) [address] [facility], [place], [address], 01/06/2025 12:29:50 01/06/20 25 01/05/2025 RPR SCREE N, REFLE X TITER /CONF IRMAT ION RPR qualitative Nonrea ctive nonrea ctive Not Available [facility] (Lab) [address] [facility], [place], [address], 01/06/2025 12:29:50 01/06/20 25 01/05/2025 CULTU RE: URINE result report SEE RESULT S BELOW Test: Cultu re: Urine Speci men Sourc e: Urine Voide d Speci men Type: Urine Speci men Date: 2024 1619 Resul t Date: 2024 0615 Resul t Statu s: Final resul t Abnor mal: No Resul ting Lab: [facility] [address] [facility] [address] Tel: CULTU RE ----- ----- ----- --- No growt h in 1 day (dete ction level of 10,00 0 colon ies / ml.) Not Available [facility] (Lab) [address] [facility], [place], [address], 01/07/2025 07:18:53 01/06/20 25 01/08/2025 US, obstpankaj tric, nucha l trans lucen cy No observ ation record ed. [email or web address] [facility] [address], [place], [address], 01/08/2025 12:15:22 01/06/20 25 01/05/2025 US, chris hammond, follo w-up No observ ation record ed. Justine [address], [place], [address], 01/08/2025 09:36:03 02/29/20 25 02/28/2025 US, chris hammond, 2nd or 3rd trime ster No observ ation record ed. [email or web address] [place] [address], [place], [address], 02/28/2025 18:22:40 02/29/20 25 02/28/2025 US, obste tric, 2nd or 3rd trime ster No observ ation record ed. [email or web address] [address] [address], [place], [address], 03/02/2025 10:53:01 03/28/20 25 03/28/2025 US, obste tric, follo w-up No observ ation record ed. [facility] [address], [place], [address], 03/28/2025 13:44:08 03/28/20 25 03/28/2025 US, obste tric, follo w-up No observ ation record ed. [email or web address] [address], [place], [address], 04/02/2025 20:59:08 04/25/20 25 04/25/2025 US, obste tric, follo w-up No observ ation record ed. [email or web address] [place] [address], [place], [address], 04/25/2025 12:09:39 04/25/2004/25/2025 US, obste tric, follo w-up No observ ation record ed. [email or web address] [facility] [address], [place], [address], 05/03/2025 10:21:35 05/25/20 25 05/25/2025 US, obste tric, follo w-up No observ ation record ed. [email or web address] Justine [address], [place], [address], 05/25/2025 13:42:24 05/25/20 25 05/25/2025 US, obste tric, follo w-up No observ ation record ed. [facility] [address], [place], [address], 05/25/2025 13:46:54 05/25/20 25 05/25/2025 US, doppl er, umbil ical arter y veloc imetr y No observ ation record ed. [facility] [address], [place], [address], 05/25/2025 13:47:07 05/25/20 25 05/25/2025 US, obste tric, bioph ysica l profi le + non-s tress test No observ ation record ed. [facility] [address], [place], [address], 05/25/2025 13:47:17 Result Notes None recorded. Problems Name Problem SNOMED Code Status Onset Date Resolution Date Notes Provider Name and Address Organization Details Recorded Time Past history of premature delivery 234048038 Active 202412/24/2024 delivered at 35wks Sanjuana Berry [facility], [facility] 20:34:59 Polycysti c ovary syndrome 217186477 Active 2024 Sanjuana Berry null, [facility] 5 20:35:15 Hyperchol esterolem ia 06220488 Active 2024 Sanjuana Berry [facility], [facility] 20:35:40 07168523 Active 2024 Nicolasa Stokes null, [facility] 5 12:19:49 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 546101377 Active 2024 O-, needs rhogam at 28 wks Gema Brewer null, [facility] 11:21:29 Multigrav jazmine of advanced maternal age 651291619 Active 2024 Priya Palacio null, [facility] 14:14:49 Problem Notes None recorded. Procedures Surgical History Date Name Laterality Status Provider Name and Address Organization Details Recorded Time 08/24/2023 Date of Last Pap Smear completed Nicolasa Stokes [facility] 01/05/2025 12:19:24 Imaging Results None recorded. [...] [facility]- [address], [place], [address] [place] [address], [facility] 17:45:51 Medications Name Sig Start Date [...] Not Available Not Available No t Available [employer]RIAGE [employer] FAMILY COUNSELOR-PNV-DHA 28 mg iron-1 mg-200 mg capsule Take [...] and Address Organization Details Last Updated DateTime 02/28/2025 170.18 cm 22.9 kg/m2 05908.49 g 102/67 mm[Hg] Tana Carlisle [facility] 02/28/2025 16:39:32 Social History Question Answer Notes LastModified by Organizat ion Details LastModified Time Tobacco Smoking Status Current Every Day Smoker Nicolasa Kike marquez, [facility] 08/24/2023 17:27:19 Do You Have An Advance Directive? No [email or web address] Information not available 02/02/2025 If You Are , What Was Your Level Of Alcohol Consumption Prior To ? Occasional [email or web address] Information not available 12/13/2024 Are You Blind Or Do You Have Difficulty Seeing? No Information not available 08/24/2023 What Is Your Level Of Caffeine Consumption? Moderate [email or web address] Information not available 12/13/2024 How Much Tobacco Do You Chew? None [email or web address] Information not available 02/02/2025 In The 14 [...] Or The Highest Degree You Have Received? [id number] Information not available 08/24/2023 Are There Any [...] Age Did You Start Smoking Tobacco? 14 [email or web address] Information not available 02/02/2025 How Much Tobacco Do You Smoke? 0.5 PPD Information not available 08/24/2023 Do You Use Sunscreen Routinely? Yes Information not available 08/24/2023 Has Tobacco Cessation Counseling Been Provided? No [email or web address] Information not available 04/25/2025 How Many Years Have You Smoked Tobacco? 15 [email or web address] Information not available 02/02/2025 Have You Used IV Drugs? No [email or web address] Information not available 02/02/2025 Do You Have Difficulty Walking Or Climbing Stairs? No Information not available 08/24/2023 Sex: Unknown Functional Status Question Answer Note LastModified by OrganDiBcomat ion Details LastModified Time Do you use any illicit or recreational drugs? Yes [email or web address] Information not available 02/28/2025 Do you or have you ever used any other forms of tobacco or nicotine? Yes [email or web address] Information not available 12/13/2024 What is your level of alcohol consumption? None Information not available 08/24/2023 Are you currently employed? No Information not available 08/24/2023 Are you able to walk independently without assistance or assistive devices? [email or web address] Information not available 08/24/2023 Are you able to care for yourself independently? 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 No Information not available 08/24/2023 Do you or have you ever used e-cigarettes or vape? Former user of electronic cigarettes [email or web address] Information not available 12/13/2024 What is your exercise level? Occasional [email or web address] Information not available 03/28/2025 Mental Status Question Answer Note LastModified by Organization D etails LastModified Time Do you feel stressed (tense, restless, nervous, or anxious, or unable to sleep at night)? [id number] Information not available 08/24/2023 Family History Relationship [...] available 2023 17:24:19 Medical History Condition Response Other Y Blood Transfusion N Dermatologic Disorders N Gestational Diabetes N Anxiety Disorder N Autoimmune disease N Arthritis N Polyps N Infertility Y Acid Reflux (GERD) N Cancer N Varicosities N Stroke N Neurologic/Epilepsy N Fibromyalgia N Headaches N Kidney Disease N Heart Problems N Kidney or Bladder Problems N Eating Disorder N Art (IVF or FET) N Hepatitis/Liver Disease N No Past Medical History N Urinary Tract Infection N Asthma N Trauma/Violence N Thrombophilias N Allergies (Food, seasonal, environmental ) N Breast Cancer N Drug/Latex Allergies/Reactions N Lung Disease N Defects or Inherited Disease N Breast Problem N Hematologic disorders N Anesthesia Complications N History of STI N Deep Vein Thrombosis N Polycystic ovary syndrome Y History of abnormal pap N Endometriosis N High Cholesterol Y Thyroid Problems N GI Problems N Anemia Y Psychiatric Illness N Ovarian Cancer N Diabetes N Pulmonary (TB, Asthma) N Eczema N Abuse/Domestic Violence N Depression/ depression N Heart Disease N Pre-Eclampsia N Hypertension N Osteoporosis N Gynecological History Statement/Question Response Date of [...] ICD10 Code Diagnosis IMO Codes Diagnosis Note [id number] Mitzi Gary [facility] [address],[facility] [place] [address] 02/02/2025 15:20:11 02/02/2025 15:52:47 Gestation period, 16 weeks [id number] Z3A.16 [id number] cont pnv [id number] Kit Lemus MD [facility] [address],[place] [address] 02/28/2025 15:15:51 02/28/2025 16:20:57 Ultrasound scan - obstetric 200424042 Z36.3 Z3A.20 [id number] [facility] [address],[place] [address] 02/28/2025 15:16:07 02/28/2025 17:09:02 Gestation period, 20 weeks 83903278 Z3A.20 [id number] cont pnv Health Concerns Section Related Observation LastModified by Organization Detai ls LastModified Time None Recorded Concern Status LastModified by Organization Details LastModified Time None Recorded Payers Encounter Date Sequence Insurance Name Policy Number Policy Hicks Covered Member ID Hicks Member ID Guarantor Name 02/28/2025 1 [facility] (MEDICAID HMO) [id number] Laurel Will [id number] Laurel Will Notes Date Note Type Note Provider Name and Address Organization Details Recorded Time 02/28/2025 text/html Generic HPI TemplateReported by Patient Mitzi Jhaveri Cookie, REMY [address], [place], [address], [place] - [facility] 02/28/2025 17:07:52 OBGyn Episode Ob Episode Information Episode Created Date Number of Fetuses Patient Bloodtype Patient rh Status Prepregnancy Weight lbs Domestic Partner Domestic Partner Phone Father Name Vocational Training Director Status 01/06/20 25 1 O Negative Kev OPEN Fetus Data First Name Last Name Admitted to NICU Weight (g) Sex Living Outcome Pediatric Complications Fetus ID Race Codes Race Delivery Type [id number] Problems Problem Notes unsure if nsts for elevate b lood pressure- start bASA Problem Name Start Date End Date Resolution Snomed Code Not e 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 01/08/2025 812240514 O-, ne eds rhogam at 28 wks Multigravida of advanced maternal age 0702/06/2025 439250380 Rufino Calculation Initial Rufino Date Initial Exam [...] Ultra Sound Latest Days Gestation 0 0 Pre-tony Flowsheet Flowsheet Date 01/05/2025 Kessler Score Blood Edema Fundus Height Fundus Units Glucose Ketones Leukocytes Nitrite Labor Signs Protein Cervic Dilation Cervic Effacement Cervic Station Type Weight in lbs Pre/Post Dialysis Refused Weight 134.37290841973 BP Diastolic BP Location Tested BP Systolic [...] Weight in lbs Pre/Post Dialysis Refused Weight 140.328228371059 BP Diastolic BP Location Tested BP Systolic [...] Weight in lbs Pre/Post Dialysis Refused Weight 146.938542581404 BP Diastolic BP Location Tested BP Systolic [...] Weight in lbs Pre/Post Dialysis Refused Weight 150.665596330585 BP Diastolic BP Location Tested BP Systolic BP Type 61 L arm 101 sitting Fetus Heart Rate Present Fetus Movement A Yes Comments +FM reviewed us, ? adenomyos is, efw 17%, hc 7%, hx heavy painful cycles, can discuss after delivery, f/u growth 4 weeks, plan gct and rhogam at [place] Flowsheet Date 04/25/2025 Kessler Score Blood Edema [...] Weight in lbs Pre/Post Dialysis Refused Weight 155.957842124776 BP Diastolic BP Location Tested BP Systolic [...] Weight in lbs Pre/Post Dialysis Refused Weight 161.718808748331 BP Diastolic BP Location Tested BP Systolic [...]
--- OUTSIDE RECORDS SUMMARY | 2025-05-25 16:40 | XMS_ITS | Continuity of Care Document ---
Author Organization [facility], [place] Address [address] [place] [address] Care Team Providers Care Switchboard Operator Name Role Phone ISABELLA ARAYA Primary Care Provider Assessment Encounter Date Assessment Date Assessment LastModified by Organization Details LastModified Time 04/25/2025 04/25/2025 Patient is _28__weeks . Discussed plan. Not available 04/25/2025 11:48:41 Plan of Treatment Reminders Order Date Submit [...] Not Available Sydnee king [address], [place], [address], 01/11/2025 23:47:04 01/12/20 25 01/11/2025 [UNIT Y] ANEUP LOIDY NIPT 22Q11.2 microdeletio n LOW RISK <1 in 10,000 normal Not Available [facility] [address], [place], [address], 01/11/2025 23:47:04 01/12/20 25 01/11/2025 [UNIT Y] ANEUP LOIDY NIPT sex chromosome aneuploidy NOT DETECT ED normal Not Available [facility] [address], [place], [address], 01/11/2025 23:47:04 01/12/20 25 01/11/2025 [UNIT Y] ANEUP LOIDY NIPT monosomy X LOW RISK <1 in 10,000 normal Not Available [facility] [address], [place], [address], 01/11/2025 23:47:04 01/12/20 25 01/11/2025 [UNIT Y] ANEUP LOIDY NIPT trisomy 13 LOW RISK <1 in 10,000 normal Not Available [facility] [address], [place], [address], 01/11/2025 23:47:04 01/12/20 25 01/11/2025 [UNIT Y] ANEUP LOIDY NIPT trisomy 18 LOW RISK <1 in 10,000 normal Not Available [facility] [address], [place], [address], 01/11/2025 23:47:04 01/12/20 25 01/11/2025 [UNIT Y] ANEUP LOIDY NIPT trisomy 21 LOW RISK <1 in 10,000 normal Not Available [facility] [address], [place], [address], 01/11/2025 23:47:04 01/12/20 25 01/11/2025 [UNIT Y] ANEUP LOIDY NIPT sex MALE normal Not Available [facility] [address], [place], [address], 01/11/2025 23:47:04 01/12/20 25 01/11/2025 [UNIT Y] ANEUP LOIDY NIPT gestation SINGLE TON normal Not Available [facility] [address], [place], [address], 01/11/2025 23:47:04 01/12/20 25 01/11/2025 [UNIT Y] ANEUP LOIDY NIPT for detailed report, see pdf See PDF normal Not Available [facility] [address], [place], [address], 01/11/2025 23:47:04 01/16/20 25 01/15/2025 [UNIT Y] CAIN Mello sickle cell disease/beta -thalassemia /hemoglobino pathies carrier screen NEGATI VE normal Not Available [facility] [address], [place], [address], 01/15/2025 21:16:52 01/16/20 25 01/15/2025 [UNIT Y] CAIN Mello alpha-thalas semia carrier screen NEGATI VE normal Not Available [facility] [address], [place], [address], 01/15/2025 21:16:52 01/16/20 25 01/15/2025 [UNIT Y] CAIN Mello cystic fibrosis carrier screen NEGATI VE normal Not Available [facility] [address], [place], [address], 01/15/2025 21:16:52 01/16/20 25 01/15/2025 [UNIT Y] CAIN Mello spinal muscular atrophy carrier screen NEGATI VE 2 SMN1 copies , SNP not presen t normal Not Available [facility] [address], [place], [address], 01/15/2025 21:16:52 01/16/20 25 01/15/2025 [UNIT Y] CAIN Mello for detailed report, see pdf See PDF normal Not Available [facility] [address], [place], [address], 01/15/2025 21:16:52 01/06/2001/05/2025 HEPAT ITIS B SURFA CE ANTIG EN hepatitis B surface antigen Non-re active non-re active This assay was perfo rmed using [employer] ratio n reage nts and test kits. Value s obtai topher with other assay metho ds or kits canno t be used inter clements eably . Not Available [facility] (Lab) [address] , [place], [address], 01/06/2025 12:29:48 01/06/2001/05/2025 HEPAT ITIS C ANTIB EMERSON SCREE N, REFLE X TO CONFI RMATI ON hepatitis C antibody Non-re active non-re active Antib odies to HCV Not Detec sharan, does not exclu de the possi bilit y of expos ure to HCV. Not Available [facility] (Lab) [address] , [place], [address], 01/06/2025 12:29:48 01/06/2001/05/2025 HIV 1/2 ANTIG EN/AN TIBOD Y, REFLE X CONFI RMATI ON HIV antigen/anti body Nonrea ctive nonrea ctive HIV-1 antig en and HIV-1 /HIV- 2 antib odies were not detec sharan. No labor atory evide nce of HIV infec tion. Not Available [facility] (Lab) [address] , [place], [address], 01/06/2025 12:29:48 01/06/2001/05/2025 CBC W/DIF F WBC 11.5 10'3/ uL 3.5-10 .5 high Not Available [facility] (Lab) [address], [place], [address], 01/06/2025 12:29:49 01/06/20 25 01/05/2025 CBC W/DIF F RBC 4.64 10'6/ uL (based on docume nted legal sex) 3.80-5 .20 Not Available [facility] (Lab) [address] [facility], [place], [address], 01/06/2025 12:29:49 01/06/20 25 01/05/2025 CBC W/DIF F HGB 13.4 g/dL (based on docume nted legal sex) 11.6-1 5.4 Not Available [facility] (Lab) [address] [facility], [place], [address], 01/06/2025 12:29:49 01/06/20 25 01/05/2025 CBC W/DIF F HCT 41.1 % (based on docume nted legal sex) 34.0-4 5.0 Not Available [facility] (Lab) [address] [facility], [place], [address], 01/06/2025 12:29:49 01/06/20 25 01/05/2025 CBC W/DIF F MCV 88.6 fL 80.0-9 9.0 Not Available [facility] (Lab) [address] [facility], [place], [address], 01/06/2025 12:29:49 01/06/20 25 01/05/2025 CBC W/DIF F MCH 28.9 pg 27.0-3 4.0 Not Available [facility] (Lab) [address] [facility], [place], [address], 01/06/2025 12:29:49 01/06/20 25 01/05/2025 CBC W/DIF F MCHC 32.6 g/dL 32.0-3 5.5 Not Available [facility] (Lab) [address] [facility], [place], [address], 01/06/2025 12:29:49 01/06/20 25 01/05/2025 CBC W/DIF F RDW 13.9 % 11.0-1 5.0 Not Available [facility] (Lab) [address] [facility], [place], [address], 01/06/2025 12:29:49 01/06/20 25 01/05/2025 CBC W/DIF F plt 281 10'3/ uL 150-40 0 Not Available [facility] (Lab) [address], [place], [address], 01/06/2025 12:29:49 01/06/20 25 01/05/2025 CBC W/DIF F MPV 10.3 fL 8.8-12 .1 Not Available [facility] (Lab) [address], [place], [address], 01/06/2025 12:29:49 01/06/20 25 01/05/2025 CBC W/DIF F NRBC's 0.0 % 0.0 Not Available [facility] (Lab) [address], [place], [address], 01/06/2025 12:29:49 01/06/20 25 01/05/2025 CBC W/DIF F absolute NRBCs 0.0 10'3/ uL no refere nce range establ ished Not Available [facility] (Lab) [address], [place], [address], 01/06/2025 12:29:49 01/06/20 25 01/05/2025 CBC W/DIF F neutrophils 73.3 % 34.0-7 3.0 high Not Available [facility] (Lab) [address] , [place], [address], 01/06/2025 12:29:49 01/06/20 25 01/05/2025 CBC W/DIF F lymphocytes 19.4 % 15.0-5 0.0 Not Available [facility] (Lab) [address] [facility], [place], [address], 01/06/2025 12:29:49 01/06/20 25 01/05/2025 CBC W/DIF F monocytes 5.0 % 1.0-15 .0 Not Available [facility] (Lab) [address] [facility], [place], [address], 01/06/2025 12:29:49 01/06/20 25 01/05/2025 CBC W/DIF F eosinophils 0.8 % 0.0-8. 0 Not Available [facility] (Lab) [address] [facility], [place], [address], 01/06/2025 12:29:49 01/06/20 25 01/05/2025 CBC W/DIF F basophils 0.7 % 0.0-2. 0 Not Available [facility] (Lab) [address] [facility], [place], [address], 01/06/2025 12:29:49 01/06/20 25 01/05/2025 CBC W/DIF [...] separ ately if prese nt. Not Available [facility] (Lab) [address] [facility], [place], [address], 01/06/2025 12:29:49 01/06/20 25 01/05/2025 CBC W/DIF F absolute neutrophils 8.4 10'3/ uL 1.5-8. 0 high Not Available [facility] (Lab) [address] [facility], [place], [address], 01/06/2025 12:29:49 01/06/20 25 01/05/2025 CBC W/DIF F absolute lymphocytes 2.2 10'3/ uL 1.0-4. 0 Not Available [facility] (Lab) [address] [facility], [place], [address], 01/06/2025 12:29:49 01/06/20 25 01/05/2025 CBC W/DIF F absolute monocytes 0.6 10'3/ uL 0.2-1. 0 Not Available [facility] (Lab) [address], [place], [address], 01/06/2025 12:29:49 01/06/20 25 01/05/2025 CBC W/DIF F absolute eosinophils 0.1 10'3/ uL 0.0-0. 6 Not Available [facility] (Lab) [address], [place], [address], 01/06/2025 12:29:49 01/06/20 25 01/05/2025 CBC W/DIF F absolute basophils 0.1 10'3/ uL 0.0-0. 3 Not Available [facility] (Lab) [address], [place], [address], 01/06/2025 12:29:49 01/06/20 25 01/05/2025 CBC W/DIF [...] caballero book. nm.or g/gen derx Not Available [facility] (Lab) [address], [place], [address], 01/06/2025 12:29:49 01/06/20 25 01/05/2025 RUBEL LA IGG ANTIB EMERSON, QUANT rubella antibodies, IgG Reacti ve reacti ve Not Available [facility] (Lab) [address], [place], [address], 01/06/2025 12:29:49 01/06/20 25 01/05/2025 RUBEL LA IGG ANTIB EMERSON, QUANT rubella antibodies, IgG quant 32.5 IU/mL >=10 Non-r eacti ve (Non- Immun e) <10 IU/mL React cameron (Immu ne) > or = 10 IU/mL Not Available [facility] (Lab) [address] [facility], [place], [address], 01/06/2025 12:29:49 01/06/20 25 01/05/2025 TYPE/ RH/SC REEN ABO/Rh type O NEG Not Available [facility] (Lab) [address] [facility], [place], [address], 01/06/2025 12:29:49 01/06/20 25 01/05/2025 TYPE/ RH/SC REEN antibody screen NEG Not Available [facility] (Lab) [address] [facility], [place], [address], 01/06/2025 12:29:49 01/06/20 25 01/05/2025 TYPE/ RH/SC REEN exp date 2024 23:59 Not Available [facility] (Lab) [address] [facility], [place], [address], 01/06/2025 12:29:49 01/06/20 25 01/05/2025 HEMOG LOBIN [...] >8.0% Actio n sugge sted Not Available [facility] (Lab) [address] [facility], [place], [address], 01/06/2025 12:29:50 01/06/20 25 01/05/2025 RPR SCREE N, REFLE X TITER /CONF IRMAT ION RPR qualitative Nonrea ctive nonrea ctive Not Available [facility] (Lab) [address] [facility], [place], [address], 01/06/2025 12:29:50 01/06/20 25 01/05/2025 CULTU RE: URINE result report SEE RESULT S BELOW Test: Cultu re: Urine Speci men Sourc e: Urine Voide d Speci men Type: Urine Speci men Date: 2024 1619 Resul t Date: 2024 0615 Resul t Statu s: Final resul t Abnor mal: No Resul ting Lab: [facility] [address] [facility] [address] Tel: CULTU RE ----- ----- ----- --- No growt h in 1 day (dete ction level of 10,00 0 colon ies / ml.) Not Available [facility] (Lab) [address] [facility], [place], [address], 01/07/2025 07:18:53 01/06/20 25 01/08/2025 US, obstpankaj tric, nucha l trans lucen cy No observ ation record ed. [email or web address] [place] [address], [place], [address], 01/08/2025 12:15:22 01/06/20 25 01/05/2025 US, chris hammond, follo w-up No observ ation record ed. Justine [address], [place], [address], 01/08/2025 09:36:03 02/29/20 25 02/28/2025 US, chris hammond, 2nd or 3rd trime ster No observ ation record ed. [email or web address] [place] [address], [place], [address], 02/28/2025 18:22:40 02/29/20 25 02/28/2025 US, obste tric, 2nd or 3rd trime ster No observ ation record ed. [email or web address] [address], [place], [address], 03/02/2025 10:53:01 03/28/20 25 03/28/2025 US, obste tric, follo w-up No observ ation record ed. [facility] [address], [place], [address], 03/28/2025 13:44:08 03/28/20 25 03/28/2025 US, obste tric, follo w-up No observ ation record ed. [email or web address] [address], [place], [address], 04/02/2025 20:59:08 04/25/20 25 04/25/2025 US, obste tric, follo w-up No observ ation record ed. [email or web address] [place] [address], [place], [address], 04/25/2025 12:09:39 04/25/2004/25/2025 US, obste tric, follo w-up No observ ation record ed. Just[facility] [address], [place], [address], 05/03/2025 10:21:35 05/25/20 25 05/25/2025 US, obste tric, follo w-up No observ ation record ed. [email or web address] [facility] [address], [place], [address], 05/25/2025 13:42:24 05/25/20 25 05/25/2025 US, obste tric, follo w-up No observ ation record ed. [facility] [address], [place], [address], 05/25/2025 13:46:54 05/25/20 25 05/25/2025 US, doppl er, umbil ical arter y veloc imetr y No observ ation record ed. [facility] [address], [place], [address], 05/25/2025 13:47:07 05/25/20 25 05/25/2025 US, obste tric, bioph ysica l profi le + non-s tress test No observ ation record ed. [facility] [address], [place], [address], 05/25/2025 13:47:17 Result Notes None recorded. Problems Name Problem SNOMED Code Status Onset Date Resolution Date Notes Provider Name and Address Organization Details Recorded Time Past history of premature delivery 711999573 Active 202412/24/2024 delivered at 35wks Sanjuana Berry [facility], [facility] 20:34:59 Polycysti c ovary syndrome 158157460 Active 2024 Sanjuana Berry null, [facility] 5 20:35:15 Hyperchol esterolem ia 63776694 Active 2024 Sanjuana Berry [facility], [facility] 20:35:40 90974328 Active 2024 Nicolasa Stokes null, [facility] 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 11:21:29 Multigrav jazmine of advanced maternal age 091356862 Active 2024 Priya Palacio null, [facility] 14:14:49 Problem Notes None recorded. Procedures Surgical History Date Name Laterality Status Provider Name and Address Organization Details Recorded Time 08/24/2023 Date of Last Pap Smear completed Nicolasa Stokes [facility] 01/05/2025 12:19:24 Imaging Results None recorded. Procedure Notes None recorded. Medical Equipment None Reported. Allergies Allergen ID Allergen Name Allergen Category Reaction Reaction Severity Criticality Documentation Date Start Date Code Code System Note Provider Name and Address Organization Details Recorded Time amoxicill in medicatio n anaphylax is Not available high 08/24/2023 723 RxNorm Mallorie castillo, [facility]- [address], [place], [address] [place] [address], [facility] 17:45:51 Medications Name Sig Start Date [...] Not Available Not Available No t Available BROADCASTER-PNV-DHA 28 mg iron-1 mg-200 mg capsule Take [...] Updated DateTime 04/25/2025 170.18 cm 24.3 kg/m2 33146.82 g 104/69 mm[Hg] Tana Carlisle [facility] 04/25/2025 11:45:22 Social History Question Answer Notes LastModified by Organizat ion Details LastModified Time Tobacco Smoking Status Current Every Day Smoker Nicolasa Kike marquez, [facility] 08/24/2023 17:27:19 Do You Have An Advance Directive? No [email or web address] Information not available 02/02/2025 If You Are , What Was Your Level Of Alcohol Consumption Prior To ? Occasional [email or web address] Information not available 12/13/2024 Are You Blind Or Do You Have Difficulty Seeing? No Information not available 08/24/2023 What Is Your Level Of Caffeine Consumption? Moderate [email or web address] Information not available 12/13/2024 How Much Tobacco Do You Chew? None Information not available 02/02/2025 In The 14 [...] Or The Highest Degree You Have Received? [id number] Information not available 08/24/2023 Are There Any [...] Age Did You Start Smoking Tobacco? 14 [email or web address] Information not available 02/02/2025 How Much Tobacco Do You Smoke? 0.5 PPD Information not available 08/24/2023 Do You Use Sunscreen Routinely? Yes Information not available 08/24/2023 Has Tobacco Cessation Counseling Been Provided? No Information not available 04/25/2025 How Many Years Have You Smoked Tobacco? 15 [email or web address] Information not available 02/02/2025 Have You Used IV Drugs? No [email or web address] Information not available 02/02/2025 Do You Have Difficulty Walking Or Climbing Stairs? No Information not available 08/24/2023 Sex: Unknown Functional Status Question Answer Note LastModified by OrganMad Mimiat ion Details LastModified Time Do you use any illicit or recreational drugs? Yes [email or web address] Information not available 02/28/2025 Do you or have you ever used any other forms of tobacco or nicotine? Yes [email or web address] Information not available 12/13/2024 What is your level of alcohol consumption? None Information not available 08/24/2023 Are you currently employed? No Information not available 08/24/2023 Are you able to walk independently without assistance or assistive devices? [email or web address] Information not available 08/24/2023 Are you able to care for yourself independently? Yes Information not available 08/24/2023 What is your occupation? [employer] [email or web address] Information not available 02/02/2025 Do you have difficulty dressing, bathing, grooming, or toileting? No Information not available 08/24/2023 Do you or have you ever used e-cigarettes or vape? Former user of electronic cigarettes [email or web address] Information not available 12/13/2024 What is your exercise level? Occasional [email or web address] Information not available 03/28/2025 Mental Status Question Answer Note LastModified by Organization D etails LastModified Time Do you feel stressed (tense, restless, nervous, or anxious, or unable to sleep at night)? [id number] Information not available 08/24/2023 Family History Relationship [...] ICD10 Code Diagnosis IMO Codes Diagnosis Note [id number] Kit Lemus MD [place] [address],[place] [address] 03/28/2025 10:52:36 03/28/2025 11:44:44 care status [id number] O36.5920 Z3A.24 [id number] [facility] [address],[place] [address] 03/28/2025 10:52:53 03/28/2025 12:30:45 Gestation period, 24 weeks 351628092 Z3A.24 [id number] Kit Lemus MD [place] [address],[place] [address] 04/25/2025 10:59:22 04/25/2025 11:47:05 care status 987770306 O36.5930 Z3A.28 [id number] Mitzi Gary [facility] [address],[place] [address] 04/25/2025 10:59:58 04/25/2025 13:29:42 Gestation period, 28 weeks 91597081 Z3A.28 [id number] Health Concerns Section Related Observation LastModified by Organization Detai ls LastModified Time None Recorded Concern Status LastModified by Organization Details LastModified Time None Recorded Payers Encounter Date Sequence Insurance Name Policy Number Policy Hicks Covered Member ID Hicks Member ID Guarantor Name 04/25/2025 1 [facility] (MEDICAID HMO) [id number] Laurel Will [id number] Laurel Will Notes Date Note Type Note Provider Name and Address Organization Details Recorded Time 04/25/2025 text/html Generic HPI TemplateReported by Patient Tana Carlisle alma, [facility] 04/25/2025 16:36:37 OBGyn Episode Ob Episode Information Episode Created Date Number of Fetuses Patient Bloodtype Patient rh Status Prepregnancy Weight lbs Domestic Partner Domestic Partner Phone Father Name Credit Review Manager Status 01/06/20 25 1 O Negative Kev OPEN Fetus Data First Name Last Name Admitted to NICU Weight (g) Sex Living Outcome Pediatric Complications Fetus ID Race Codes Race Delivery Type [id number] Problems Problem Notes unsure if nsts for elevate b lood pressure- start bASA Problem Name Start Date End Date Resolution Snomed Code Not e 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 01/08/2025 868712572 O-, ne eds rhogam at 28 wks Multigravida of advanced maternal age 0702/06/2025 131211885 Rufino Calculation Initial Rufino Date Initial Exam [...] Weight in lbs Pre/Post Dialysis Refused Weight 134.74855304462 BP Diastolic BP Location Tested BP Systolic [...] Weight in lbs Pre/Post Dialysis Refused Weight 140.251428880136 BP Diastolic BP Location Tested BP Systolic [...] Weight in lbs Pre/Post Dialysis Refused Weight 146.122074200861 BP Diastolic BP Location Tested BP Systolic [...] Weight in lbs Pre/Post Dialysis Refused Weight 150.376760806855 BP Diastolic BP Location Tested BP Systolic BP Type 61 L arm 101 sitting Fetus Heart Rate Present Fetus Movement A Yes Comments +FM reviewed us, ? adenomyos is, efw 17%, hc 7%, hx heavy painful cycles, can discuss after delivery, f/u growth 4 weeks, plan gct and rhogam at [facility] Flowsheet Date 04/25/2025 Kessler Score Blood Edema [...] Weight in lbs Pre/Post Dialysis Refused Weight 155.349298941547 BP Diastolic BP Location Tested BP Systolic [...] Weight in lbs Pre/Post Dialysis Refused Weight 161.665509882299 BP Diastolic BP Location Tested BP Systolic [...]
--- OUTSIDE RECORDS SUMMARY | 2025-05-25 16:40 | XMS_ITS | Continuity of Care Document ---
Author Organization [facility], [place] Address [address] [place] [address] Care Team Providers Care Chemical Waste Management Technician Name Role Phone ISABELLA ARAYA Primary Care Provider Assessment Encounter Date Assessment Date Assessment LastModified by Organization Details LastModified Time 03/28/2025 03/28/2025 Patient is _24__weeks . Discussed plan. Not available 03/28/2025 12:27:49 Plan of Treatment Reminders Order Date Submit [...] Not Available Sydnee king [address], [place], [address], 01/11/2025 23:47:04 01/12/20 25 01/11/2025 [UNIT Y] ANEUP LOIDY NIPT 22Q11.2 microdeletio n LOW RISK <1 in 10,000 normal Not Available [facility] [address], [place], [address], 01/11/2025 23:47:04 01/12/20 25 01/11/2025 [UNIT Y] ANEUP LOIDY NIPT sex chromosome aneuploidy NOT DETECT ED normal Not Available [facility] [address], [place], [address], 01/11/2025 23:47:04 01/12/20 25 01/11/2025 [UNIT Y] ANEUP LOIDY NIPT monosomy X LOW RISK <1 in 10,000 normal Not Available [facility] [address], [place], [address], 01/11/2025 23:47:04 01/12/20 25 01/11/2025 [UNIT Y] ANEUP LOIDY NIPT trisomy 13 LOW RISK <1 in 10,000 normal Not Available [facility] [address], [place], [address], 01/11/2025 23:47:04 01/12/20 25 01/11/2025 [UNIT Y] ANEUP LOIDY NIPT trisomy 18 LOW RISK <1 in 10,000 normal Not Available [facility] [address], [place], [address], 01/11/2025 23:47:04 01/12/20 25 01/11/2025 [UNIT Y] ANEUP LOIDY NIPT trisomy 21 LOW RISK <1 in 10,000 normal Not Available [facility] [address], [place], [address], 01/11/2025 23:47:04 01/12/20 25 01/11/2025 [UNIT Y] ANEUP LOIDY NIPT sex MALE normal Not Available [facility] [address], [place], [address], 01/11/2025 23:47:04 01/12/20 25 01/11/2025 [UNIT Y] ANEUP LOIDY NIPT gestation SINGLE TON normal Not Available [facility] [address], [place], [address], 01/11/2025 23:47:04 01/12/20 25 01/11/2025 [UNIT Y] ANEUP LOIDY NIPT for detailed report, see pdf See PDF normal Not Available [facility] [address], [place], [address], 01/11/2025 23:47:04 01/16/20 25 01/15/2025 [UNIT Y] CAIN Mello sickle cell disease/beta -thalassemia /hemoglobino pathies carrier screen NEGATI VE normal Not Available [facility] [address], [place], [address], 01/15/2025 21:16:52 01/16/20 25 01/15/2025 [UNIT Y] CAIN Mello alpha-thalas semia carrier screen NEGATI VE normal Not Available [facility] [address], [place], [address], 01/15/2025 21:16:52 01/16/20 25 01/15/2025 [UNIT Y] CAIN Mello cystic fibrosis carrier screen NEGATI VE normal Not Available [facility] [address], [place], [address], 01/15/2025 21:16:52 01/16/20 25 01/15/2025 [UNIT Y] CAIN Mello spinal muscular atrophy carrier screen NEGATI VE 2 SMN1 copies , SNP not presen t normal Not Available [facility] [address], [place], [address], 01/15/2025 21:16:52 01/16/20 25 01/15/2025 [UNIT Y] CAIN Mello for detailed report, see pdf See PDF normal Not Available [facility] [address], [place], [address], 01/15/2025 21:16:52 01/06/2001/05/2025 HEPAT ITIS B SURFA CE ANTIG EN hepatitis B surface antigen Non-re active non-re active This assay was perfo rmed using [employer] ratio n reage nts and test kits. Value s obtai topher with other assay metho ds or kits canno t be used inter clements eably . Not Available [facility] (Lab) [address] , [place], [address], 01/06/2025 12:29:48 01/06/2001/05/2025 HEPAT ITIS C ANTIB EMERSON SCREE N, REFLE X TO CONFI RMATI ON hepatitis C antibody Non-re active non-re active Antib odies to HCV Not Detec sharan, does not exclu de the possi bilit y of expos ure to HCV. Not Available [facility] (Lab) [address] , [place], [address], 01/06/2025 12:29:48 01/06/2001/05/2025 HIV 1/2 ANTIG EN/AN TIBOD Y, REFLE X CONFI RMATI ON HIV antigen/anti body Nonrea ctive nonrea ctive HIV-1 antig en and HIV-1 /HIV- 2 antib odies were not detec sharan. No labor atory evide nce of HIV infec tion. Not Available [facility] (Lab) [address] , [place], [address], 01/06/2025 12:29:48 01/06/2001/05/2025 CBC W/DIF F WBC 11.5 10'3/ uL 3.5-10 .5 high Not Available [facility] (Lab) [address], [place], [address], 01/06/2025 12:29:49 01/06/20 25 01/05/2025 CBC W/DIF F RBC 4.64 10'6/ uL (based on docume nted legal sex) 3.80-5 .20 Not Available [facility] (Lab) [address] [facility], [place], [address], 01/06/2025 12:29:49 01/06/20 25 01/05/2025 CBC W/DIF F HGB 13.4 g/dL (based on docume nted legal sex) 11.6-1 5.4 Not Available [facility] (Lab) [address] [facility], [place], [address], 01/06/2025 12:29:49 01/06/20 25 01/05/2025 CBC W/DIF F HCT 41.1 % (based on docume nted legal sex) 34.0-4 5.0 Not Available [facility] (Lab) [address] [facility], [place], [address], 01/06/2025 12:29:49 01/06/20 25 01/05/2025 CBC W/DIF F MCV 88.6 fL 80.0-9 9.0 Not Available [facility] (Lab) [address] [facility], [place], [address], 01/06/2025 12:29:49 01/06/20 25 01/05/2025 CBC W/DIF F MCH 28.9 pg 27.0-3 4.0 Not Available [facility] (Lab) [address] [facility], [place], [address], 01/06/2025 12:29:49 01/06/20 25 01/05/2025 CBC W/DIF F MCHC 32.6 g/dL 32.0-3 5.5 Not Available [facility] (Lab) [address] [facility], [place], [address], 01/06/2025 12:29:49 01/06/20 25 01/05/2025 CBC W/DIF F RDW 13.9 % 11.0-1 5.0 Not Available [facility] (Lab) [address] [facility], [place], [address], 01/06/2025 12:29:49 01/06/20 25 01/05/2025 CBC W/DIF F plt 281 10'3/ uL 150-40 0 Not Available [facility] (Lab) [address], [place], [address], 01/06/2025 12:29:49 01/06/20 25 01/05/2025 CBC W/DIF F MPV 10.3 fL 8.8-12 .1 Not Available [facility] (Lab) [address], [place], [address], 01/06/2025 12:29:49 01/06/20 25 01/05/2025 CBC W/DIF F NRBC's 0.0 % 0.0 Not Available [facility] (Lab) [address], [place], [address], 01/06/2025 12:29:49 01/06/20 25 01/05/2025 CBC W/DIF F absolute NRBCs 0.0 10'3/ uL no refere nce range establ ished Not Available [facility] (Lab) [address], [place], [address], 01/06/2025 12:29:49 01/06/20 25 01/05/2025 CBC W/DIF F neutrophils 73.3 % 34.0-7 3.0 high Not Available [facility] (Lab) [address] , [place], [address], 01/06/2025 12:29:49 01/06/20 25 01/05/2025 CBC W/DIF F lymphocytes 19.4 % 15.0-5 0.0 Not Available [facility] (Lab) [address] [facility], [place], [address], 01/06/2025 12:29:49 01/06/20 25 01/05/2025 CBC W/DIF F monocytes 5.0 % 1.0-15 .0 Not Available [facility] (Lab) [address] [facility], [place], [address], 01/06/2025 12:29:49 01/06/20 25 01/05/2025 CBC W/DIF F eosinophils 0.8 % 0.0-8. 0 Not Available [facility] (Lab) [address] [facility], [place], [address], 01/06/2025 12:29:49 01/06/20 25 01/05/2025 CBC W/DIF F basophils 0.7 % 0.0-2. 0 Not Available [facility] (Lab) [address] [facility], [place], [address], 01/06/2025 12:29:49 01/06/20 25 01/05/2025 CBC W/DIF [...] separ ately if prese nt. Not Available [facility] (Lab) [address], [place], [address], 01/06/2025 12:29:49 01/06/20 25 01/05/2025 CBC W/DIF F absolute neutrophils 8.4 10'3/ uL 1.5-8. 0 high Not Available [facility] (Lab) [address] [facility], [place], [address], 01/06/2025 12:29:49 01/06/20 25 01/05/2025 CBC W/DIF F absolute lymphocytes 2.2 10'3/ uL 1.0-4. 0 Not Available [facility] (Lab) [address] [facility], [place], [address], 01/06/2025 12:29:49 01/06/20 25 01/05/2025 CBC W/DIF F absolute monocytes 0.6 10'3/ uL 0.2-1. 0 Not Available [facility] (Lab) [address], [place], [address], 01/06/2025 12:29:49 01/06/20 25 01/05/2025 CBC W/DIF F absolute eosinophils 0.1 10'3/ uL 0.0-0. 6 Not Available [facility] (Lab) [address], [place], [address], 01/06/2025 12:29:49 01/06/20 25 01/05/2025 CBC W/DIF F absolute basophils 0.1 10'3/ uL 0.0-0. 3 Not Available [facility] (Lab) [address], [place], [address], 01/06/2025 12:29:49 01/06/20 25 01/05/2025 CBC W/DIF [...] caballero book. nm.or g/gen derx Not Available [facility] (Lab) [address], [place], [address], 01/06/2025 12:29:49 01/06/20 25 01/05/2025 RUBEL LA IGG ANTIB EMERSON, QUANT rubella antibodies, IgG Reacti ve reacti ve Not Available [facility] (Lab) [address], [place], [address], 01/06/2025 12:29:49 01/06/20 25 01/05/2025 RUBEL LA IGG ANTIB EMERSON, QUANT rubella antibodies, IgG quant 32.5 IU/mL >=10 Non-r eacti ve (Non- Immun e) <10 IU/mL React cameron (Immu ne) > or = 10 IU/mL Not Available [facility] (Lab) [address] [facility], [place], [address], 01/06/2025 12:29:49 01/06/20 25 01/05/2025 TYPE/ RH/SC REEN ABO/Rh type O NEG Not Available [facility] (Lab) [address], [place], [address], 01/06/2025 12:29:49 01/06/20 25 01/05/2025 TYPE/ RH/SC REEN antibody screen NEG Not Available [facility] (Lab) [address], [place], [address], 01/06/2025 12:29:49 01/06/20 25 01/05/2025 TYPE/ RH/SC REEN exp date 2024 23:59 Not Available [facility] (Lab) [address], [place], [address], 01/06/2025 12:29:49 01/06/20 25 01/05/2025 HEMOG LOBIN [...] >8.0% Actio n sugge sted Not Available [facility] (Lab) [address], [place], [address], 01/06/2025 12:29:50 01/06/20 25 01/05/2025 RPR SCREE N, REFLE X TITER /CONF IRMAT ION RPR qualitative Nonrea ctive nonrea ctive Not Available [facility] (Lab) [address], [place], [address], 01/06/2025 12:29:50 01/06/20 25 01/05/2025 CULTU RE: URINE result report SEE RESULT S BELOW Test: Cultu re: Urine Speci men Sourc e: Urine Voide d Speci men Type: Urine Speci men Date: 2024 1619 Resul t Date: 2024 0615 Resul t Statu s: Final resul t Abnor mal: No Resul ting Lab: [facility] [address] [facility] [address] Tel: CULTU RE ----- ----- ----- --- No growt h in 1 day (dete ction level of 10,00 0 colon ies / ml.) Not Available [facility] (Lab) [address], [place], [address], 01/07/2025 07:18:53 01/06/20 25 01/08/2025 US, obstpankaj tric, nucha l trans lucen cy No observ ation record ed. [email or web address] [place] [address], [place], [address], 01/08/2025 12:15:22 01/06/20 25 01/05/2025 US, chris hammond, follo w-up No observ ation record ed. Justine [address], [place], [address], 01/08/2025 09:36:03 02/29/20 25 02/28/2025 US, chris hammond, 2nd or 3rd trime ster No observ ation record ed. [email or web address] [place] [address], [place], [address], 02/28/2025 18:22:40 02/29/20 25 02/28/2025 US, obste tric, 2nd or 3rd trime ster No observ ation record ed. [email or web address] [place] [address], [place], [address], 03/02/2025 10:53:01 03/28/20 25 03/28/2025 US, obste tric, follo w-up No observ ation record ed. [facility] [address], [place], [address], 03/28/2025 13:44:08 03/28/20 25 03/28/2025 US, obste tric, follo w-up No observ ation record ed. [email or web address] [place] [address], [place], [address], 04/02/2025 20:59:08 04/25/20 25 04/25/2025 US, obste tric, follo w-up No observ ation record ed. [email or web address] [place] [address], [place], [address], 04/25/2025 12:09:39 04/25/2004/25/2025 US, obste tric, follo w-up No observ ation record ed. [email or web address] [place] [address], [place], [address], 05/03/2025 10:21:35 05/25/20 25 05/25/2025 US, obste tric, follo w-up No observ ation record ed. [email or web address] [place] [address], [place], [address], 05/25/2025 13:42:24 05/25/20 25 05/25/2025 US, obste tric, follo w-up No observ ation record ed. [facility] [address], [place], [address], 05/25/2025 13:46:54 05/25/20 25 05/25/2025 US, doppl er, umbil ical arter y veloc imetr y No observ ation record ed. [facility] [address], [place], [address], 05/25/2025 13:47:07 05/25/20 25 05/25/2025 US, obste tric, bioph ysica l profi le + non-s tress test No observ ation record ed. [facility] [address], [place], [address], 05/25/2025 13:47:17 Result Notes None recorded. Problems Name Problem SNOMED Code Status Onset Date Resolution Date Notes Provider Name and Address Organization Details Recorded Time Past history of premature delivery 615819824 Active 202412/24/2024 delivered at 35wks Sanjuana Berry [facility], [facility] 20:34:59 Polycysti c ovary syndrome 931727043 Active 2024 Sanjuana Berry null, [facility] 5 20:35:15 Hyperchol esterolem ia 86057787 Active 2024 Sanjuana Berry [facility], [facility] 20:35:40 32778096 Active 2024 Nicolasa [place] null, [facility] 5 12:19:49 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 785076257 Active 2024 O-, needs rhogam at 28 wks Gema Brewer null, [facility] 11:21:29 Multigrav jazmine of advanced maternal age 100806138 Active 2024 Priya Palacio null, [facility] 14:14:49 Problem Notes None recorded. Procedures Surgical History Date Name Laterality Status Provider Name and Address Organization Details Recorded Time 08/24/2023 Date of Last Pap Smear completed Nicolasa Stokes [facility] 01/05/2025 12:19:24 Imaging Results None recorded. Procedure Notes None recorded. Medical Equipment None Reported. Allergies Allergen ID Allergen Name Allergen Category Reaction Reaction Severity Criticality Documentation Date Start Date Code Code System Note Provider Name and Address Organization Details Recorded Time amoxicill in medicatio n anaphylax is Not available high 08/24/2023 723 RxNorm Mallorie castillo, [facility]- [address], [place], [address] [place] [address], [facility] 17:45:51 Medications Name Sig Start Date [...] Not Available Not Available No t Available SUSTAINMENT LOGISTICS ANALYST-PNV-DHA 28 mg iron-1 mg-200 mg capsule Take [...] and Address Organization Details Last Updated DateTime 03/28/2025 170.18 cm 23.5 kg/m2 50379.86 g 101/61 mm[Hg] Tana Carlisle [facility] 03/28/2025 11:43:13 Social History Question Answer Notes LastModified by Organizat ion Details LastModified Time Tobacco Smoking Status Current Every Day Smoker Nicolasa Kike marquez, [facility] 08/24/2023 17:27:19 Do You Have An Advance Directive? No [email or web address] Information not available 02/02/2025 If You Are , What Was Your Level Of Alcohol Consumption Prior To ? Occasional [email or web address] Information not available 12/13/2024 Are You Blind Or Do You Have Difficulty Seeing? No Information not available 08/24/2023 What Is Your Level Of Caffeine Consumption? Moderate [email or web address] Information not available 12/13/2024 How Much Tobacco Do You Chew? None [email or web address] Information not available 02/02/2025 In The 14 [...] Or The Highest Degree You Have Received? CD18285-5 Information not available 08/24/2023 Are There Any [...] Age Did You Start Smoking Tobacco? 14 [email or web address] Information not available 02/02/2025 How Much Tobacco Do You Smoke? 0.5 PPD Information not available 08/24/2023 Do You Use Sunscreen Routinely? Yes Information not available 08/24/2023 Has Tobacco Cessation Counseling Been Provided? No [email or web address] Information not available 04/25/2025 How Many Years Have You Smoked Tobacco? 15 Information not available 02/02/2025 Have You Used IV Drugs? No [email or web address] Information not available 02/02/2025 Do You Have Difficulty Walking Or Climbing Stairs? No Information not available 08/24/2023 Sex: Unknown Functional Status Question Answer Note LastModified by OrganAnchor Bay Technologiesat ion Details LastModified Time Do you use any illicit or recreational drugs? Yes [email or web address] Information not available 02/28/2025 Do you or have you ever used any other forms of tobacco or nicotine? Yes [email or web address] Information not available 12/13/2024 What is your level of alcohol consumption? None Information not available 08/24/2023 Are you currently employed? No Information not available 08/24/2023 Are you able to walk independently without assistance or assistive devices? [email or web address] Information not available 08/24/2023 Are you able to care for yourself independently? 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 No Information not available 08/24/2023 Do you or have you ever used e-cigarettes or vape? Former user of electronic cigarettes [email or web address] Information not available 12/13/2024 What is your exercise level? Occasional [email or web address] Information not available 03/28/2025 Mental Status Question Answer Note LastModified by Organization D etails LastModified Time Do you feel stressed (tense, restless, nervous, or anxious, or unable to sleep at night)? [id number] Information not available 08/24/2023 Family History Relationship [...] ICD10 Code Diagnosis IMO Codes Diagnosis Note [id number] Kit Lemus MD [place] [address],[place] [address] 02/28/2025 15:15:51 02/28/2025 16:20:57 Ultrasound scan - obstetric 006238249 Z36.3 Z3A.20 94556 [id number] Mitzi Gary CNM [place] [address],[place] [address] 02/28/2025 15:16:07 02/28/2025 17:09:02 Gestation period, 20 weeks 73888709 Z3A.20 [id number] cont pnv [id number] Kit Lemus MD [place] [address],[place] [address] 03/28/2025 10:52:36 03/28/2025 11:44:44 care status 899502794 O36.5920 Z3A.24 159098 [id number] [facility] [address],[place] [address] 03/28/2025 10:52:53 03/28/2025 12:30:45 Gestation period, 24 weeks 235556041 Z3A.24 [id number] Health Concerns Section Related Observation LastModified by Organization Detai ls LastModified Time None Recorded Concern Status LastModified by Organization Details LastModified Time None Recorded Payers Encounter Date Sequence Insurance Name Policy Number Policy Hicks Covered Member ID Hicks Member ID Guarantor Name 03/28/2025 1 [facility] (MEDICAID HMO) [id number] Laurel Quezada [id number] Laurel Will Notes Date Note Type Note Provider Name and Address Organization Details Recorded Time 03/28/2025 text/html Generic HPI TemplateReported by Patient Mitzi LiraAyla Gary, [facility] [address], [place], [address], [facility] 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 Status 01/06/20 25 1 O Negative Kev OPEN Fetus Data First Name Last Name Admitted to NICU Weight (g) Sex Living Outcome Pediatric Complications Fetus ID Race Codes Race Delivery Type [id number] Problems Problem Notes unsure if nsts for elevate b lood pressure- start bASA Problem Name Start Date End Date Resolution Snomed Code Not e 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 01/08/2025 380236203 O-, ne eds rhogam at 28 wks Multigravida of advanced maternal age 0702/06/2025 542557192 Rufino Calculation Initial Rufino Date Initial Exam [...] Weight in lbs Pre/Post Dialysis Refused Weight 134.30382525399 BP Diastolic BP Location Tested BP Systolic [...] Weight in lbs Pre/Post Dialysis Refused Weight 140.747481703785 BP Diastolic BP Location Tested BP Systolic [...] Weight in lbs Pre/Post Dialysis Refused Weight 146.297609090507 BP Diastolic BP Location Tested BP Systolic [...] Weight in lbs Pre/Post Dialysis Refused Weight 150.311429465472 BP Diastolic BP Location Tested BP Systolic BP Type 61 L arm 101 sitting Fetus Heart Rate Present Fetus Movement A Yes Comments +FM reviewed us, ? adenomyos is, efw 17%, hc 7%, hx heavy painful cycles, can discuss after delivery, f/u growth 4 weeks, plan gct and rhogam at goltry Flowsheet Date 04/25/2025 Kessler Score Blood Edema [...] Weight in lbs Pre/Post Dialysis Refused Weight 155.919083155179 BP Diastolic BP Location Tested BP Systolic [...] Weight in lbs Pre/Post Dialysis Refused Weight 161.646003160784 BP Diastolic BP Location Tested BP Systolic [...]
--- OUTSIDE RECORDS SUMMARY | 2025-05-25 16:40 | XMS_ITS | Continuity of Care Document ---
Author Organization [facility], [place] Address [address] [place] [address] Care Team Providers Care Panel Installer Name Role Phone ISABELLA ARAYA Primary Care Provider Assessment Encounter Date Assessment Date Assessment LastModified by Organization Details LastModified Time 05/11/2025 05/11/2025 Patient is _30__weeks . Discussed plan. Not available 05/11/2025 11:07:58 Plan of Treatment [...] Not Available Sydnee king [address], [place], [address], 01/11/2025 23:47:04 01/12/20 25 01/11/2025 [UNIT Y] ANEUP LOIDY NIPT 22Q11.2 microdeletio n LOW RISK <1 in 10,000 normal Not Available [facility] [address], [place], [address], 01/11/2025 23:47:04 01/12/20 25 01/11/2025 [UNIT Y] ANEUP LOIDY NIPT sex chromosome aneuploidy NOT DETECT ED normal Not Available [facility] [address], [place], [address], 01/11/2025 23:47:04 01/12/20 25 01/11/2025 [UNIT Y] ANEUP LOIDY NIPT monosomy X LOW RISK <1 in 10,000 normal Not Available [facility] [address], [place], [address], 01/11/2025 23:47:04 01/12/20 25 01/11/2025 [UNIT Y] ANEUP LOIDY NIPT trisomy 13 LOW RISK <1 in 10,000 normal Not Available [facility] [address], [place], [address], 01/11/2025 23:47:04 01/12/20 25 01/11/2025 [UNIT Y] ANEUP LOIDY NIPT trisomy 18 LOW RISK <1 in 10,000 normal Not Available [facility] [address], [place], [address], 01/11/2025 23:47:04 01/12/20 25 01/11/2025 [UNIT Y] ANEUP LOIDY NIPT trisomy 21 LOW RISK <1 in 10,000 normal Not Available [facility] [address], [place], [address], 01/11/2025 23:47:04 01/12/20 25 01/11/2025 [UNIT Y] ANEUP LOIDY NIPT sex MALE normal Not Available [facility] [address], [place], [address], 01/11/2025 23:47:04 01/12/20 25 01/11/2025 [UNIT Y] ANEUP LOIDY NIPT gestation SINGLE TON normal Not Available [facility] [address], [place], [address], 01/11/2025 23:47:04 01/12/20 25 01/11/2025 [UNIT Y] ANEUP LOIDY NIPT for detailed report, see pdf See PDF normal Not Available [facility] [address], [place], [address], 01/11/2025 23:47:04 01/16/20 25 01/15/2025 [UNIT Y] CAIN Mello sickle cell disease/beta -thalassemia /hemoglobino pathies carrier screen NEGATI VE normal Not Available [facility] [address], [place], [address], 01/15/2025 21:16:52 01/16/20 25 01/15/2025 [UNIT Y] CAIN Mello alpha-thalas semia carrier screen NEGATI VE normal Not Available [facility] [address], [place], [address], 01/15/2025 21:16:52 01/16/20 25 01/15/2025 [UNIT Y] CAIN Mello cystic fibrosis carrier screen NEGATI VE normal Not Available [facility] [address], [place], [address], 01/15/2025 21:16:52 01/16/20 25 01/15/2025 [UNIT Y] CAIN Mello spinal muscular atrophy carrier screen NEGATI VE 2 SMN1 copies , SNP not presen t normal Not Available [facility] [address], [place], [address], 01/15/2025 21:16:52 01/16/20 25 01/15/2025 [UNIT Y] CAIN Mello for detailed report, see pdf See PDF normal Not Available [facility] [address], [place], [address], 01/15/2025 21:16:52 01/06/2001/05/2025 HEPAT ITIS B SURFA [...] [facility] ([facility]) [address] , [place], [address], 01/06/2025 12:29:48 01/06/2001/05/2025 HEPAT ITIS C ANTIB EMERSON SCREE N, REFLE X TO CONFI RMATI ON hepatitis C antibody Non-re active non-re active Antib odies to HCV Not Detec sharan, does not exclu de the possi bilit y of expos ure to HCV. Not Available [facility] (Lab) [address] , [place], [address], 01/06/2025 12:29:48 01/06/2001/05/2025 HIV 1/2 ANTIG EN/AN TIBOD Y, REFLE X CONFI RMATI ON HIV antigen/anti body Nonrea ctive nonrea ctive HIV-1 antig en and HIV-1 /HIV- 2 antib odies were not detec sharan. No labor atory evide nce of HIV infec tion. Not Available [facility] (Lab) [address] , [place], [address], 01/06/2025 12:29:48 01/06/2001/05/2025 CBC W/DIF F WBC 11.5 10'3/ uL 3.5-10 .5 high Not Available [facility] (Lab) [address], [place], [address], 01/06/2025 12:29:49 01/06/20 25 01/05/2025 CBC W/DIF F RBC 4.64 10'6/ uL (based on docume nted legal sex) 3.80-5 .20 Not Available [facility] (Lab) [address], [place], [address], 01/06/2025 12:29:49 01/06/20 25 01/05/2025 CBC W/DIF F HGB 13.4 g/dL (based on docume nted legal sex) 11.6-1 5.4 Not Available [facility] (Lab) [address], [place], [address], 01/06/2025 12:29:49 01/06/20 25 01/05/2025 CBC W/DIF F HCT 41.1 % (based on docume nted legal sex) 34.0-4 5.0 Not Available [facility] (Lab) [address], [place], [address], 01/06/2025 12:29:49 01/06/20 25 01/05/2025 CBC W/DIF F MCV 88.6 fL 80.0-9 9.0 Not Available [facility] (Lab) [address], [place], [address], 01/06/2025 12:29:49 01/06/20 25 01/05/2025 CBC W/DIF F MCH 28.9 pg 27.0-3 4.0 Not Available [facility] (Lab) [address], [place], [address], 01/06/2025 12:29:49 01/06/20 25 01/05/2025 CBC W/DIF F MCHC 32.6 g/dL 32.0-3 5.5 Not Available [facility] (Lab) [address], [place], [address], 01/06/2025 12:29:49 01/06/20 25 01/05/2025 CBC W/DIF F RDW 13.9 % 11.0-1 5.0 Not Available [facility] (Lab) [address], [place], [address], 01/06/2025 12:29:49 01/06/20 25 01/05/2025 CBC W/DIF F plt 281 10'3/ uL 150-40 0 Not Available [facility] (Lab) [address], [place], [address], 01/06/2025 12:29:49 01/06/20 25 01/05/2025 CBC W/DIF F MPV 10.3 fL 8.8-12 .1 Not Available [facility] (Lab) [address], [place], [address], 01/06/2025 12:29:49 01/06/20 25 01/05/2025 CBC W/DIF F NRBC's 0.0 % 0.0 Not Available [facility] (Lab) [address], [place], [address], 01/06/2025 12:29:49 01/06/20 25 01/05/2025 CBC W/DIF F absolute NRBCs 0.0 10'3/ uL no refere nce range establ ished Not Available [facility] (Lab) [address], [place], [address], 01/06/2025 12:29:49 01/06/20 25 01/05/2025 CBC W/DIF F neutrophils 73.3 % 34.0-7 3.0 high Not Available [facility] (Lab) [address] , [place], [address], 01/06/2025 12:29:49 01/06/20 25 01/05/2025 CBC W/DIF F lymphocytes 19.4 % 15.0-5 0.0 Not Available [facility] (Lab) [address], [place], [address], 01/06/2025 12:29:49 01/06/20 25 01/05/2025 CBC W/DIF F monocytes 5.0 % 1.0-15 .0 Not Available [facility] (Lab) [address], [place], [address], 01/06/2025 12:29:49 01/06/20 25 01/05/2025 CBC W/DIF F eosinophils 0.8 % 0.0-8. 0 Not Available [facility] (Lab) [address], [place], [address], 01/06/2025 12:29:49 01/06/20 25 01/05/2025 CBC W/DIF F basophils 0.7 % 0.0-2. 0 Not Available [facility] (Lab) [address], [place], [address], 01/06/2025 12:29:49 01/06/20 25 01/05/2025 CBC W/DIF [...] [facility] (Lab) [address], [place], [address], 01/06/2025 12:29:49 01/06/20 25 01/05/2025 CBC W/DIF F absolute neutrophils 8.4 10'3/ uL 1.5-8. 0 high Not Available [facility] (Lab) [address], [place], [address], 01/06/2025 12:29:49 01/06/20 25 01/05/2025 CBC W/DIF F absolute lymphocytes 2.2 10'3/ uL 1.0-4. 0 Not Available [facility] (Lab) [address], [place], [address], 01/06/2025 12:29:49 01/06/20 25 01/05/2025 CBC W/DIF F absolute monocytes 0.6 10'3/ uL 0.2-1. 0 Not Available [facility] (Lab) [address], [place], [address], 01/06/2025 12:29:49 01/06/20 25 01/05/2025 CBC W/DIF F absolute eosinophils 0.1 10'3/ uL 0.0-0. 6 Not Available [facility] (Lab) [address], [place], [address], 01/06/2025 12:29:49 01/06/20 25 01/05/2025 CBC W/DIF F absolute basophils 0.1 10'3/ uL 0.0-0. 3 Not Available [facility] (Lab) [address], [place], [address], 01/06/2025 12:29:49 01/06/20 25 01/05/2025 CBC W/DIF [...] [facility] (Lab) [address], [place], [address], 01/06/2025 12:29:49 01/06/20 25 01/05/2025 RUBEL LA IGG ANTIB EMERSON, QUANT rubella antibodies, IgG Reacti ve reacti ve Not Available [facility] (Lab) [address], [place], [address], 01/06/2025 12:29:49 01/06/20 25 01/05/2025 RUBEL LA IGG ANTIB EMERSON, QUANT rubella antibodies, IgG quant 32.5 IU/mL >=10 Non-r eacti ve (Non- Immun e) <10 IU/mL React cameron (Immu ne) > or = 10 IU/mL Not Available [facility] (Lab) [address], [place], [address], 01/06/2025 12:29:49 01/06/20 25 01/05/2025 TYPE/ RH/SC REEN ABO/Rh type O NEG Not Available [facility] (Lab) [address], [place], [address], 01/06/2025 12:29:49 01/06/20 25 01/05/2025 TYPE/ RH/SC REEN antibody screen NEG Not Available [facility] (Lab) [address], [place], [address], 01/06/2025 12:29:49 01/06/20 25 01/05/2025 TYPE/ RH/SC REEN exp date 2024 23:59 Not Available [facility] (Lab) [address], [place], [address], 01/06/2025 12:29:49 01/06/20 25 01/05/2025 HEMOG LOBIN [...] [facility] (Lab) [address], [place], [address], 01/06/2025 12:29:50 01/06/20 25 01/05/2025 RPR SCREE N, REFLE X TITER /CONF IRMAT ION RPR qualitative Nonrea ctive nonrea ctive Not Available [facility] (Lab) [address], [place], [address], 01/06/2025 12:29:50 01/06/20 25 01/05/2025 CULTU RE: URINE result report SEE RESULT S BELOW Test: Cultu re: Urine Speci men Sourc e: Urine Voide d Speci men Type: Urine Speci men Date: 2024 1619 Resul t Date: 2024 0615 Resul t Statu s: Final resul t Abnor mal: No Resul ting Lab: [facility] [address] [facility] [address] Tel: CULTU RE ----- ----- ----- --- No growt h in 1 day (dete ction level of 10,00 0 colon ies / ml.) Not Available [facility] (Lab) [address], [place], [address], 01/07/2025 07:18:53 01/06/20 25 01/08/2025 US, obstpankaj tric, nucha l trans lucen cy No observ ation record ed. [email or web address] [place] [address], [place], [address], 01/08/2025 12:15:22 01/06/20 25 01/05/2025 US, chris hammond, follo w-up No observ ation record ed. [email or web address] [address], [place], [address], 01/08/2025 09:36:03 02/29/20 25 02/28/2025 US, chris hammond, 2nd or 3rd trime ster No observ ation record ed. [email or web address] [place] [address], [place], [address], 02/28/2025 18:22:40 02/29/20 25 02/28/2025 US, obste tric, 2nd or 3rd trime ster No observ ation record ed. [email or web address] [address], [place], [address], 03/02/2025 10:53:01 03/28/20 25 03/28/2025 US, obste tric, follo w-up No observ ation record ed. [facility] [address], [place], [address], 03/28/2025 13:44:08 03/28/20 25 03/28/2025 US, obste tric, follo w-up No observ ation record ed. [email or web address] [address], [place], [address], 04/02/2025 20:59:08 04/25/20 25 04/25/2025 US, obste tric, follo w-up No observ ation record ed. [email or web address] [place] [address], [place], [address], 04/25/2025 12:09:39 04/25/2004/25/2025 US, obste tric, follo w-up No observ ation record ed. [email or web address] [address], [place], [address], 05/03/2025 10:21:35 05/25/20 25 05/25/2025 US, obste tric, follo w-up No observ ation record ed. [email or web address] [address], [place], [address], 05/25/2025 13:42:24 05/25/20 25 05/25/2025 US, obste tric, follo w-up No observ ation record ed. [facility] [address], [place], [address], 05/25/2025 13:46:54 05/25/20 25 05/25/2025 US, doppl er, umbil ical arter y veloc imetr y No observ ation record ed. [facility] [address], [place], [address], 05/25/2025 13:47:07 05/25/20 25 05/25/2025 US, obste tric, bioph ysica l profi le + non-s tress test No observ ation record ed. [facility] [address], [place], [address], 05/25/2025 13:47:17 Result Notes None recorded. Problems Name Problem SNOMED Code Status Onset Date Resolution Date Notes Provider Name and Address Organization Details Recorded Time Past history of premature delivery 249581542 Active 202412/24/2024 delivered at 35wks Sanjuana Berry [facility], [facility] 20:34:59 Polycysti c ovary syndrome 012366381 Active 2024 Sanjuana Berry null, [facility] 5 20:35:15 Hyperchol esterolem ia 20390227 Active 2024 Sanjuana Berry [facility], [facility] 20:35:40 78111267 Active 2024 Nciolasa Stokes null, [facility] 5 12:19:49 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 910595565 Active 2024 O-, needs rhogam at 28 wks Gema Brewer null, [facility] 11:21:29 Multigrav jazmine of advanced maternal age 545036264 Active 2024 Priya Palacio null, [facility] 14:14:49 Problem Notes None recorded. Procedures Surgical History Date Name Laterality Status Provider Name and Address Organization Details Recorded Time 08/24/2023 Date of Last Pap Smear completed Nicolasa Stokes [facility] 01/05/2025 12:19:24 Imaging Results None recorded. Procedure Notes None recorded. Medical Equipment None Reported. Allergies Allergen ID Allergen Name Allergen Category Reaction Reaction Severity Criticality Documentation Date Start Date Code Code System Note Provider Name and Address Organization Details Recorded Time amoxicill in medicatio n anaphylax is Not available high 08/24/2023 723 RxNorm Mallorie castillo, [facility]- [address], [place], [address] [place] [address], [facility] 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 05/11/2025 10:59:12 Social History Question Answer Notes LastModified by Organizat ion Details LastModified Time Tobacco Smoking Status Current Every Day Smoker Nicolasa Stokes [facility], [facility] 08/24/2023 17:27:19 Do You Have An Advance Directive? No [email or web address] Information not available 02/02/2025 If You Are , What Was Your Level Of Alcohol Consumption Prior To ? Occasional [email or web address] Information not available 12/13/2024 Are You Blind Or Do You Have Difficulty Seeing? No Information not available 08/24/2023 What Is Your Level Of Caffeine Consumption? Moderate [email or web address] Information not available 12/13/2024 How Much Tobacco [...] Or The Highest Degree You Have Received? [id number] Information not available 08/24/2023 Are There Any [...] Age Did You Start Smoking Tobacco? 14 [email or web address] Information not available 02/02/2025 How Much Tobacco Do You Smoke? 0.5 PPD Information not available 08/24/2023 Do You Use Sunscreen Routinely? Yes Information not available 08/24/2023 Has Tobacco Cessation Counseling Been Provided? No [email or web address] Information not available 04/25/2025 How Many Years Have You Smoked Tobacco? 15 Information not available 02/02/2025 Have You Used IV Drugs? No [email or web address] Information not available 02/02/2025 Do You Have Difficulty Walking Or Climbing Stairs? No Information not available 08/24/2023 Sex: Unknown Functional Status Question Answer Note LastModified by Organizat ion Details LastModified Time Do you use any illicit or recreational drugs? Yes Information not available 02/28/2025 Do you or have you ever used any other forms of tobacco or nicotine? Yes [email or web address] Information not available 12/13/2024 What is your level of alcohol consumption? None Information not available 08/24/2023 Are you currently employed? No Information not available 08/24/2023 Are you able to walk independently without assistance or assistive devices? [email or web address] Information not available 08/24/2023 Are you able to care for yourself independently? 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 No Information not available 08/24/2023 Do you or have you ever used e-cigarettes or vape? Former user of electronic cigarettes [email or web address] Information not available 12/13/2024 What is your exercise level? Occasional [email or web address] Information not available 03/28/2025 Mental Status Question Answer Note LastModified by Organization D etails LastModified Time Do you feel stressed (tense, restless, nervous, or anxious, or unable to sleep at night)? [id number] Information not available 08/24/2023 Family History Relationship [...] ) N Other Y Drug/Latex Allergies/Reactions N Breast Cancer N Blood Transfusion N Lung Disease N Dermatologic Disorders N Defects or Inherited Disease N Breast Problem N Gestational Diabetes N Hematologic disorders N Anesthesia Complications N History of STI N Deep Vein Thrombosis N Polycystic ovary syndrome Y Anxiety Disorder N Autoimmune disease N Arthritis N Polyps N Infertility Y History of abnormal pap N Acid Reflux (GERD) N Cancer N Varicosities [...] ICD10 Code Diagnosis IMO Codes Diagnosis Note [id number] Kit Lemus MD [place] [address],[place] [address] 04/25/2025 10:59:22 04/25/2025 11:47:05 care status 208639461 O36.5930 Z3A.28 [id number] Mitzi Gary [facility] [address],[place] [address] 04/25/2025 10:59:58 04/25/2025 13:29:42 Gestation period, 28 weeks 98769880 Z3A.28 7149170 [id number] Mitzi Gary [place] [address],[place] [address] 05/11/2025 10:40:50 05/11/2025 11:22:29 Gestation period, 30 weeks 93026571 Z3A.30 [id number] cont pnv Health Concerns Section Related Observation LastModified by Organization Detai ls LastModified Time None Recorded Concern Status LastModified by Organization Details LastModified Time None Recorded Payers Encounter Date Sequence Insurance Name Policy Number Policy Hicks Covered Member ID Hicks Member ID Guarantor Name 05/11/2025 1 [facility] (MEDICAID HMO) [id number] Laurel Will [id number] Laurel Will Notes Date Note Type Note Provider Name and Address Organization Details Recorded Time 05/11/2025 text/html Generic HPI TemplateReported by Patient Mitzi Jhaveri Cookie, CN [address], [place], [address], [place] - [facility] 05/11/2025 11:19:32 OBGyn Episode Ob Episode Information Episode Created Date Number of Fetuses Patient Bloodtype Patient rh Status Prepregnancy Weight lbs Domestic Partner Domestic Partner Phone Father Name Wage Conciliator Status 01/06/20 25 1 O Negative Kev OPEN Fetus Data First Name Last Name Admitted to NICU Weight (g) Sex Living Outcome Pediatric Complications Fetus ID Race Codes Race Delivery Type [id number] Problems Problem Notes unsure if nsts for elevate b lood pressure- start bASA Problem Name Start Date End Date Resolution Snomed Code Not e 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 01/08/2025 312217747 O-, ne eds rhogam at 28 wks Multigravida of advanced maternal age 0702/06/2025 251223160 Rufino Calculation Initial Rufino Date Initial Exam [...] Weight in lbs Pre/Post Dialysis Refused Weight 134.20206471879 BP Diastolic BP Location Tested BP Systolic [...] Weight in lbs Pre/Post Dialysis Refused Weight 140.597942594743 BP Diastolic BP Location Tested BP Systolic [...] Weight in lbs Pre/Post Dialysis Refused Weight 146.626277939599 BP Diastolic BP Location Tested BP Systolic [...] Weight in lbs Pre/Post Dialysis Refused Weight 150.242507788772 BP Diastolic BP Location Tested BP Systolic BP Type 61 L arm 101 sitting Fetus Heart Rate Present Fetus Movement A Yes Comments +FM reviewed us, ? adenomyos is, efw 17%, hc 7%, hx heavy painful cycles, can discuss after delivery, f/u growth 4 weeks, plan gct and rhogam at agate Flowsheet Date 04/25/2025 Kessler Score Blood Edema [...] Weight in lbs Pre/Post Dialysis Refused Weight 155.639623614433 BP Diastolic BP Location Tested BP Systolic [...] Weight in lbs Pre/Post Dialysis Refused Weight 161.279124492519 BP Diastolic BP Location Tested BP Systolic BP Type 63 L arm 97 sitting Fetus Heart Rate Present Fetus Movement A Decreased Comments +FM, reviewed kick counts, u s next visit reviewed blood sugars wnl will bring next visit if ok can stop, precautions and education f/u 2 weeks Flowsheet Date 05/25/2025 Ekssler Score Blood Edema Fundus Height Fundus Units [...]
--- OUTSIDE RECORDS SUMMARY | 2025-05-25 16:41 | XMS_ITS | Continuity of Care Document ---
Author Organization [facility], [place] Address [address] [place] [address] Care Team Providers Care Computational Physicist Name Role Phone QUIANAISABELLA Primary Care Provider [phone] Assessment No assessment recorded. Plan of Treatment [...] Not Available [facility] [address], [place], [address], 01/11/2025 23:47:04 01/12/20 25 01/11/2025 [UNIT Y] ANEUP LOIDY NIPT 22Q11.2 microdeletio n LOW RISK <1 in 10,000 normal Not Available [facility] [address], [place], [address], 01/11/2025 23:47:04 01/12/20 25 01/11/2025 [UNIT Y] ANEUP LOIDY NIPT sex chromosome aneuploidy NOT DETECT ED normal Not Available [facility] [address], [place], [address], 01/11/2025 23:47:04 01/12/20 25 01/11/2025 [UNIT Y] ANEUP LOIDY NIPT monosomy X LOW RISK <1 in 10,000 normal Not Available [facility] [address], [place], [address], 01/11/2025 23:47:04 01/12/20 25 01/11/2025 [UNIT Y] ANEUP LOIDY NIPT trisomy 13 LOW RISK <1 in 10,000 normal Not Available [facility] [address], [place], [address], 01/11/2025 23:47:04 01/12/20 25 01/11/2025 [UNIT Y] ANEUP LOIDY NIPT trisomy 18 LOW RISK <1 in 10,000 normal Not Available [facility] [address], [place], [address], 01/11/2025 23:47:04 01/12/20 25 01/11/2025 [UNIT Y] ANEUP LOIDY NIPT trisomy 21 LOW RISK <1 in 10,000 normal Not Available [facility] [address], [place], [address], 01/11/2025 23:47:04 01/12/20 25 01/11/2025 [UNIT Y] ANEUP LOIDY NIPT sex MALE normal Not Available [facility] [address], [place], [address], 01/11/2025 23:47:04 01/12/20 25 01/11/2025 [UNIT Y] ANEUP LOIDY NIPT gestation SINGLE TON normal Not Available [facility] [address], [place], [address], 01/11/2025 23:47:04 01/12/20 25 01/11/2025 [UNIT Y] ANEUP CORNELIUS NIPT for detailed report, see pdf See PDF normal Not Available [facility] [address], [place], [address], 01/11/2025 23:47:04 01/16/20 25 01/15/2025 [UNIT Y] CAIN Mello sickle cell disease/beta -thalassemia /hemoglobino pathies carrier screen NEGATI VE normal Not Available [facility] [address], [place], [address], 01/15/2025 21:16:52 01/16/20 25 01/15/2025 [UNIT Y] CAIN Mello alpha-thalas semia carrier screen NEGATI VE normal Not Available [facility] [address], [place], [address], 01/15/2025 21:16:52 01/16/20 25 01/15/2025 [UNIT Y] CAIN Mello cystic fibrosis carrier screen NEGATI VE normal Not Available [facility] [address], [place], [address], 01/15/2025 21:16:52 01/16/20 25 01/15/2025 [UNIT Y] CAIN Mello spinal muscular atrophy carrier screen NEGATI VE 2 SMN1 copies , SNP not presen t normal Not Available [facility] [address], [place], [address], 01/15/2025 21:16:52 01/16/20 25 01/15/2025 [UNIT Y] CAIN Mello for detailed report, see pdf See PDF normal Not Available [facility] [address], [place], [address], 01/15/2025 21:16:52 01/06/20 25 01/05/2025 HEPAT ITIS B SURFA CE ANTIG EN hepatitis B surface antigen Non-re active non-re active This assay was perfo rmed using [employer] ratio n reage nts and test kits. Value s obtai topher with other assay metho ds or kits canno t be used inter clements eably . Not Available [facility] (Lab) [address], [place], [address], 01/06/2025 12:29:48 01/06/2001/05/2025 HEPAT ITIS C ANTIB EMERSON SCREE N, REFLE X TO CONFI RMATI ON hepatitis C antibody Non-re active non-re active Antib odies to HCV Not Detec sharan, does not exclu de the possi bilit y of expos ure to HCV. Not Available [facility] (Lab) [address], [place], [address], 01/06/2025 12:29:48 01/06/2001/05/2025 HIV 1/2 ANTIG EN/AN TIBOD Y, REFLE X CONFI RMATI ON HIV antigen/anti body Nonrea ctive nonrea ctive HIV-1 antig en and HIV-1 /HIV- 2 antib odies were not detec sharan. No labor atory evide nce of HIV infec tion. Not Available [facility] (Lab) [address], [place], [address], 01/06/2025 12:29:48 01/06/2001/05/2025 CBC W/DIF F WBC 11.5 10'3/ uL 3.5-10 .5 high Not Available [facility] (Lab) [address] [place], [address], 01/06/2025 12:29:49 01/06/20 25 01/05/2025 CBC W/DIF F RBC 4.64 10'6/ uL (based on docume nted legal sex) 3.80-5 .20 Not Available [facility] (Lab) [address] [place], [address], 01/06/2025 12:29:49 01/06/20 25 01/05/2025 CBC W/DIF F HGB 13.4 g/dL (based on docume nted legal sex) 11.6-1 5.4 Not Available [facility] (Lab) [address] [facility], [place], [address], 01/06/2025 12:29:49 01/06/20 25 01/05/2025 CBC W/DIF F HCT 41.1 % (based on docume nted legal sex) 34.0-4 5.0 Not Available [facility] (Lab) [address], [place], [address], 01/06/2025 12:29:49 01/06/20 25 01/05/2025 CBC W/DIF F MCV 88.6 fL 80.0-9 9.0 Not Available [facility] (Lab) [address], [place], [address], 01/06/2025 12:29:49 01/06/20 25 01/05/2025 CBC W/DIF F MCH 28.9 pg 27.0-3 4.0 Not Available [facility] (Lab) [address] [facility], [place], [address], 01/06/2025 12:29:49 01/06/20 25 01/05/2025 CBC W/DIF F MCHC 32.6 g/dL 32.0-3 5.5 Not Available [facility] (Lab) [address] [facility] [address], [place], [address], 01/06/2025 12:29:49 01/06/20 25 01/05/2025 CBC W/DIF F RDW 13.9 % 11.0-1 5.0 Not Available [facility] (Lab) [address], [place], [address], 01/06/2025 12:29:49 01/06/20 25 01/05/2025 CBC W/DIF F plt 281 10'3/ uL 150-40 0 Not Available [facility] (Lab) [address], [place], [address], 01/06/2025 12:29:49 01/06/20 25 01/05/2025 CBC W/DIF F MPV 10.3 fL 8.8-12 .1 Not Available [facility] (Lab) [address], [place], [address], 01/06/2025 12:29:49 01/06/20 25 01/05/2025 CBC W/DIF F NRBC's 0.0 % 0.0 Not Available [facility] (Lab) [address] [facility] [address], [place], [address], 01/06/2025 12:29:49 01/06/20 25 01/05/2025 CBC W/DIF F absolute NRBCs 0.0 10'3/ uL no refere nce range establ ished Not Available [facility] (Lab) [address], [place], [address], 01/06/2025 12:29:49 01/06/20 25 01/05/2025 CBC W/DIF F neutrophils 73.3 % 34.0-7 3.0 high Not Available [facility] (Lab) [address], [place], [address], 01/06/2025 12:29:49 01/06/20 25 01/05/2025 CBC W/DIF F lymphocytes 19.4 % 15.0-5 0.0 Not Available [facility] (Lab) [address], [place], [address], 01/06/2025 12:29:49 01/06/20 25 01/05/2025 CBC W/DIF F monocytes 5.0 % 1.0-15 .0 Not Available [facility] (Lab) [address], [place], [address], 01/06/2025 12:29:49 01/06/20 25 01/05/2025 CBC W/DIF F eosinophils 0.8 % 0.0-8. 0 Not Available [facility] (Lab) [address] [facility] [address], [place], [address], 01/06/2025 12:29:49 01/06/20 25 01/05/2025 CBC W/DIF F basophils 0.7 % 0.0-2. 0 Not Available [facility] (Lab) [address], [place], [address], 01/06/2025 12:29:49 01/06/20 25 01/05/2025 CBC W/DIF [...] separ ately if prese nt. Not Available [facility] (Lab) [address], [place], [address], 01/06/2025 12:29:49 01/06/20 25 01/05/2025 CBC W/DIF F absolute neutrophils 8.4 10'3/ uL 1.5-8. 0 high Not Available [facility] (Lab) [address] [facility] [address], [place], [address], 01/06/2025 12:29:49 01/06/20 25 01/05/2025 CBC W/DIF F absolute lymphocytes 2.2 10'3/ uL 1.0-4. 0 Not Available [facility] (Lab) [address], [place], [address], 01/06/2025 12:29:49 01/06/20 25 01/05/2025 CBC W/DIF F absolute monocytes 0.6 10'3/ uL 0.2-1. 0 Not Available [facility] (Lab) [address] [facility] [address], [place], [address], 01/06/2025 12:29:49 01/06/20 25 01/05/2025 CBC W/DIF F absolute eosinophils 0.1 10'3/ uL 0.0-0. 6 Not Available [facility] (Lab) [address], [place], [address], 01/06/2025 12:29:49 01/06/20 25 01/05/2025 CBC W/DIF F absolute basophils 0.1 10'3/ uL 0.0-0. 3 Not Available [facility] (Lab) [address], [place], [address], 01/06/2025 12:29:49 01/06/20 25 01/05/2025 CBC W/DIF F absolute immature granulocytes 0.1 10'3/ uL 0.00-0 .10 Refer ence range s for nonbi nary/ inter sex or unspe cifie d gende r patie nts have not been estab lishe d. [facility]as e [facility] for range s estab lishe d for cisge nder patie nts and evalu ate in the clini cesar omkar xt of the indiv idual patie nt: https ://la bhand book. nm.or g/gen derx Not Available [facility] (Lab) [address], [place], [address], 01/06/2025 12:29:49 01/06/20 25 01/05/2025 RUBEL LA IGG ANTIB EMERSON, QUANT rubella antibodies, IgG Reacti ve reacti ve Not Available [facility] (Lab) [address] [place], [address], 01/06/2025 12:29:49 01/06/20 25 01/05/2025 RUBEL LA IGG ANTIB EMERSON, QUANT rubella antibodies, IgG quant 32.5 IU/mL >=10 Non-r eacti ve (Non- Immun e) <10 IU/mL React cameron (Immu ne) > or = 10 IU/mL Not Available [facility] (Lab) [address], [place], [address], 01/06/2025 12:29:49 01/06/20 25 01/05/2025 TYPE/ RH/SC REEN ABO/Rh type O NEG Not Available [facility] (Lab) [address], [place], [address], 01/06/2025 12:29:49 01/06/20 25 01/05/2025 TYPE/ RH/SC REEN antibody screen NEG Not Available [facility] (Lab) [address], [place], [address], 01/06/2025 12:29:49 01/06/20 25 01/05/2025 TYPE/ RH/SC REEN exp date 2024 23:59 Not Available [facility] (Lab) [address], [place], [address], 01/06/2025 12:29:49 01/06/20 25 01/05/2025 HEMOG LOBIN A1C hemoglobin A1C 5.3 % 4.0-5. 6 The Ameri can [employer]abe joselyn [employer] iatio n recom mends that a prima ry goal of thera py isadora d be a HBA1C of < 7% and that physi cians isadora d reeva luate the treat ment regim en in patie nts with HBA1C value s consi stent ly > 8%. <5.7% Aide l 5.7 - 6.4% Incre ased risk for diabe joselyn >=6.5 % Diagn ostic of diabe joselyn <7.0% Goal of thera py >8.0% Actio n sugge sted Not Available [facility] (Lab) [address], [place], [address], 01/06/2025 12:29:50 01/06/20 25 01/05/2025 RPR SCREE N, REFLE X TITER /CONF IRMAT ION RPR qualitative Nonrea ctive nonrea ctive Not Available [facility] (Lab) [address], [place], [address], 01/06/2025 12:29:50 06/27/20 25 01/05/2025 CULTU RE: URINE result report SEE RESULT S BELOW Test: Cultu re: Urine Speci men Sourc e: Urine Voide d Speci men Type: Urine Speci men Date: 2024 1619 Resul t Date: 2024 0615 Resul t Statu s: Final resul t Abnor mal: No Resul ting Lab: [facility] [address] [facility] [address] Tel: CULTU RE ----- ----- ----- --- No growt h in 1 day (dete ction level of 10,00 0 colon ies / ml.) Not Available [facility] (Lab) [address] [facility] [address], [place], [address], 01/07/2025 07:18:53 01/06/20 25 01/08/2025 US, obste tric, nucha l trans lucen cy No observ ation record ed. [email or web address] [place] [address], [place], [address], 01/08/2025 12:15:22 01/06/20 25 01/05/2025 US, obste tric, follo w-up No observ ation record ed. [email or web address] [address], [place], [address], 01/08/2025 09:36:03 02/29/20 25 02/28/2025 US, obste tric, 2nd or 3rd trime ster No observ ation record ed. [email or web address] [place] [address], [place], [address], 02/28/2025 18:22:40 02/29/20 25 02/28/2025 US, obste tric, 2nd or 3rd trime ster No observ ation record ed. [email or web address] [address], [place], [address], 03/02/2025 10:53:01 03/28/20 25 03/28/2025 US, obste tric, follo w-up No observ ation record ed. [facility] [address], [place], [address], 03/28/2025 13:44:08 03/28/20 25 03/28/2025 US, obste tric, follo w-up No observ ation record ed. [address], [place], [address], 04/02/2025 20:59:08 04/25/20 25 04/25/2025 US, obste tric, follo w-up No observ ation record ed. [address], [place], [address], 04/25/2025 12:09:39 04/25/20 25 04/25/2025 US, obste tric, follo w-up No observ ation record ed. [email or web address] [address], [place], [address], 05/03/2025 10:21:35 05/25/20 25 05/25/2025 US, obste tric, follo w-up No observ ation record ed. [email or web address] [address], [place], [address], 05/25/2025 13:42:24 05/25/20 25 05/25/2025 US, obste tric, follo w-up No observ ation record ed. [facility] [address], [place], [address], 05/25/2025 13:46:54 05/25/20 25 05/25/2025 US, doppl er, umbil ical arter y veloc imetr y No observ ation record ed. [facility] [address], [place], [address], 05/25/2025 13:47:07 05/25/20 25 05/25/2025 US, obste tric, bioph ysica l profi le + non-s tress test No observ ation record ed. howie [facility] [address], [place], [address], 05/25/2025 13:47:17 Result Notes None recorded. Problems Name Problem SNOMED Code Status Onset Date Resolution Date Notes Provider Name and Address Organization Details Recorded Time Past history of premature delivery 985611758 Active 202412/24/2024 delivered at 35wks Sanjuana Berry [facility], [facility] 20:34:59 Polycysti c ovary syndrome 937440754 Active 2024 Sanjuana Berry [facility], [facility] 20:35:15 Hyperchol esterolem ia 30998527 Active 2024 Sanjuana Berry [facility], [facility] 20:35:40 65377267 Active 2024 Nicolasa Stokes [facility], [facility] 12:19:49 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 261853992 Active 2024 O-, needs rhogam at 28 wks Gema Brewer null, [facility] 11:21:29 Multigrav jazmine of advanced maternal age 513173972 Active 2024 Priya Palacio [facility], [facility] 14:14:49 Problem Notes None recorded. Procedures Surgical History Date Name Laterality Status Provider Name and Address Organization Details Recorded Time 08/24/2023 Date of Last Pap Smear completed Nicolasa Stokes [facility] 01/05/2025 12:19:24 Imaging Results None recorded. Procedure Notes None recorded. Medical Equipment None Reported. Allergies Allergen ID Allergen Name Allergen Category Reaction Reaction Severity Criticality Documentation Date Start Date Code Code System Note Provider Name and Address Organization Details Recorded Time 08040 amoxicill in medicatio n anaphylax is Not available high 08/24/2023 723 RxNorm Mallorie castillo, [facility]- [address], [place], [address] [place] [address], [facility] 17:45:51 Medications Name Sig Start Date [...] Not Available Not Available No t Available MARINE OPERATIONS COORDINATOR-PNV-DHA 28 mg iron-1 mg-200 mg capsule Take [...] Status Current Every Day Smoker Nicolasa Kike [facility], [facility] 08/24/2023 17:27:19 Do You Have An Advance Directive? No [email or web address] Information not available 02/02/2025 If You Are , What Was Your Level Of Alcohol Consumption Prior To ? Occasional [email or web address] Information not available 12/13/2024 Are You Blind Or Do You Have Difficulty Seeing? No Information not available 08/24/2023 What Is Your Level Of Caffeine Consumption? Moderate Information not available 12/13/2024 How Much Tobacco Do You Chew? None [email or web address] Information not available 02/02/2025 In The 14 [...] Or The Highest Degree You Have Received? [id number] Information not available 08/24/2023 Are There Any [...] Many Years Have You Smoked Tobacco? 15 [email or web address] Information not available 02/02/2025 Have You Used IV Drugs? No Information not available 02/02/2025 Do You Have Difficulty Walking Or Climbing Stairs? No Information not available 08/24/2023 Sex: Unknown Functional Status Question Answer Note LastModified by Organizat ion Details LastModified Time Do you use any illicit or recreational drugs? Yes Information not available 02/28/2025 Do you or have you ever used any other forms of tobacco or nicotine? Yes Information not available 12/13/2024 What is your level of alcohol consumption? None Information not available 08/24/2023 Are you currently employed? No Information not available 08/24/2023 Are you able to walk independently without assistance or assistive devices? [email or web address] Information not available 08/24/2023 Are you able to care for yourself independently? 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 No Information not available 08/24/2023 Do you or have you ever used e-cigarettes or vape? Former user of electronic cigarettes [email or web address] Information not available 12/13/2024 What is your exercise level? Occasional [email or web address] Information not available 03/28/2025 Mental Status Question Answer Note LastModified by Organization D etails LastModified Time Do you feel stressed (tense, restless, nervous, or anxious, or unable to sleep at night)? [id number] Information not available 08/24/2023 Family History Relationship Description Onset Age of this Age Resolved Age Notes LastModified by Organization Details LastModified Time Mother Anemia Not available 17:23:41 Mother Diabetes mellitus Not available 02/13/ 2024 17:24:19 Sister Anemia Not available 17:23:41 Sister [...] ICD10 Code Diagnosis IMO Codes Diagnosis Note [id number] Kit Lemus MD [place] [address] [address] 04/25/2025 10:59:22 04/25/2025 11:47:05 care status 246451410 O36.5930 Z3A.28 132076 [id number] Mitzi Gary [facility] [address] [address] 04/25/2025 10:59:58 04/25/2025 13:29:42 Gestation period, 28 weeks 95764864 Z3A.28 4333868 [id number] [facility] [address] [address] 05/11/2025 10:40:50 05/11/2025 11:22:29 Gestation period, 30 weeks 29154827 Z3A.30 [id number] cont pnv [id number] Kit Lemus MD [facility] [place] [address] [address] 05/25/2025 10:49:25 05/25/2025 12:11:16 Poor growth affecting management 248643824 O36.5990 O09.523 Z3A.32 [id number] Mitzi Gary [facility] [address] [address] 05/25/2025 10:49:47 05/25/2025 12:30:07 Gestation period, 32 weeks 2752183 Z3A.32 [id number] Poor growth affecting management 901485164 O36.5990 [id number] Health Concerns Section Related Observation LastModified by Organization Detai ls LastModified Time None Recorded Concern Status LastModified by Organization Details LastModified Time None Recorded Payers Encounter Date Sequence Insurance Name Policy Number Policy Hicks Covered Member ID Hicks Member ID Guarantor Name 05/25/2025 1 [facility] (MEDICAID HMO) [id number] Laurel Will [id number] Laurel Will OBGyn Episode Ob Episode Information Episode Created Date Number of Fetuses Patient Bloodtype Patient rh Status Prepregnancy Weight lbs Domestic Partner Domestic Partner Phone Father Name 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 Status 01/06/20 25 1 O Negative Kev OPEN Fetus Data First Name Last Name Admitted to NICU Weight (g) Sex Living Outcome Pediatric Complications Fetus ID Race Codes Race Delivery Type [id number] Problems Problem Notes unsure if nsts for elevate b lood pressure- start bASA Problem Name Start Date End Date Resolution Snomed Code Not e 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 01/08/2025 [id number] O-, ne eds rhogam at 28 wks Multigravida of advanced maternal age 0702/06/2025 939614791 Rufino Calculation Initial Rufino Date Initial Exam [...] Weight in lbs Pre/Post Dialysis Refused Weight 134.88913059271 BP Diastolic BP Location Tested BP Systolic [...] Weight in lbs Pre/Post Dialysis Refused Weight 140.570610538741 BP Diastolic BP Location Tested BP Systolic [...] Weight in lbs Pre/Post Dialysis Refused Weight 146.803637076906 BP Diastolic BP Location Tested BP Systolic [...] Weight in lbs Pre/Post Dialysis Refused Weight 150.374203045906 BP Diastolic BP Location Tested BP Systolic [...] Weight in lbs Pre/Post Dialysis Refused Weight 155.539970524232 BP Diastolic BP Location Tested BP Systolic [...] Weight in lbs Pre/Post Dialysis Refused Weight 161.406085319572 BP Diastolic BP Location Tested BP Systolic [...]
--- OUTSIDE RECORDS SUMMARY | 2025-05-25 16:41 | XMS_ITS | Continuity of Care Document ---
Author Organization [facility] [place] Address [address] [place] [address] [place] [address] Care Team Providers Care Youth Support Worker Name Role Phone ISABELLA ARAYA Primary Care Provider [phone] Assessment No assessment recorded. Plan of Treatment [...] obstetr ic, follow- up 2024 025 [email or web address] [place], [address], [address], [place], [address], 03/28/2025 16:36:47 Medication Orders None recorde d. Patient TargetsNo targets recorded. Patient InstructionsNo instructions recorded. Reason for Referral None Reported. Results Created Date Observation Date Name Description Value Unit Range Abnormal Flag Note LastModifiedBy Organization Detail LastModifiedTime 01/12/2001/11/2025 [UNIT Y] ANEUP LOIDY NIPT fraction 6.1% normal Not Available Syd[facility] king [address], [place], [address], 01/11/2025 23:47:04 01/12/20 25 01/11/2025 [UNIT Y] ANEUP LOIDY NIPT 22Q11.2 microdeletio n LOW RISK <1 in 10,000 normal Not Available [facility] [address], [place], [address], 01/11/2025 23:47:04 01/12/20 25 01/11/2025 [UNIT Y] ANEUP LOIDY NIPT sex chromosome aneuploidy NOT DETECT ED normal Not Available [facility] [address], [place], [address], 01/11/2025 23:47:04 01/12/20 25 01/11/2025 [UNIT Y] ANEUP LOIDY NIPT monosomy X LOW RISK <1 in 10,000 normal Not Available [facility] [address], [place], [address], 01/11/2025 23:47:04 01/12/20 25 01/11/2025 [UNIT Y] ANEUP LOIDY NIPT trisomy 13 LOW RISK <1 in 10,000 normal Not Available [facility] [address], [place], [address], 01/11/2025 23:47:04 01/12/20 25 01/11/2025 [UNIT Y] ANEUP LOIDY NIPT trisomy 18 LOW RISK <1 in 10,000 normal Not Available [facility] [address], [place], [address], 01/11/2025 23:47:04 01/12/20 25 01/11/2025 [UNIT Y] ANEUP LOIDY NIPT trisomy 21 LOW RISK <1 in 10,000 normal Not Available [facility] [address], [place], [address], 01/11/2025 23:47:04 01/12/20 25 01/11/2025 [UNIT Y] ANEUP LOIDY NIPT sex MALE normal Not Available [facility] [address], [place], [address], 01/11/2025 23:47:04 01/12/20 25 01/11/2025 [UNIT Y] ANEUP LOIDY NIPT gestation SINGLE TON normal Not Available [facility] [address], [place], [address], 01/11/2025 23:47:04 01/12/20 25 01/11/2025 [UNIT Y] ANEUP LOIDY NIPT for detailed report, see pdf See PDF normal Not Available [facility] [address], [place], [address], 01/11/2025 23:47:04 01/16/20 25 01/15/2025 [UNIT Y] CAIN Mello sickle cell disease/beta -thalassemia /hemoglobino pathies carrier screen NEGATI VE normal Not Available [facility] [address], [place], [address], 01/15/2025 21:16:52 01/16/20 25 01/15/2025 [UNIT Y] CAIN Mello alpha-thalas semia carrier screen NEGATI VE normal Not Available [facility] [address], [place], [address], 01/15/2025 21:16:52 01/16/20 25 01/15/2025 [UNIT Y] CAIN Mello cystic fibrosis carrier screen NEGATI VE normal Not Available [facility] [address], [place], [address], 01/15/2025 21:16:52 01/16/20 25 01/15/2025 [UNIT Y] CAIN Mello spinal muscular atrophy carrier screen NEGATI VE 2 SMN1 copies , SNP not presen t normal Not Available [facility] [address], [place], [address], 01/15/2025 21:16:52 01/16/20 25 01/15/2025 [UNIT Y] CAIN Mello for detailed report, see pdf See PDF normal Not Available [facility] [address], [place], [address], 01/15/2025 21:16:52 01/06/2001/05/2025 HEPAT ITIS B SURFA CE ANTIG EN hepatitis B surface antigen Non-re active non-re active This assay was perfo rmed using [employer] ratio n reage nts and test kits. Value s obtai topher with other assay metho ds or kits canno t be used inter clements eably . Not Available [facility] (Lab) [address], [place], [address], 01/06/2025 12:29:48 01/06/2001/05/2025 HEPAT ITIS C ANTIB EMERSON SCREE N, REFLE X TO CONFI RMATI ON hepatitis C antibody Non-re active non-re active Antib odies to HCV Not Detec sharan, does not exclu de the possi bilit y of expos ure to HCV. Not Available [facility] (Lab) [address], [place], [address], 01/06/2025 12:29:48 01/06/2001/05/2025 HIV 1/2 ANTIG EN/AN TIBOD Y, REFLE X CONFI RMATI ON HIV antigen/anti body Nonrea ctive nonrea ctive HIV-1 antig en and HIV-1 /HIV- 2 antib odies were not detec sharan. No labor atory evide nce of HIV infec tion. Not Available [facility] (Lab) [address], [place], [address], 01/06/2025 12:29:48 01/06/2001/05/2025 CBC W/DIF F WBC 11.5 10'3/ uL 3.5-10 .5 high Not Available [facility] (Lab) [address], [place], [address], 01/06/2025 12:29:49 01/06/20 25 01/05/2025 CBC W/DIF F RBC 4.64 10'6/ uL (based on docume nted legal sex) 3.80-5 .20 Not Available [facility] (Lab) [address], [place], [address], 01/06/2025 12:29:49 01/06/20 25 01/05/2025 CBC W/DIF F HGB 13.4 g/dL (based on docume nted legal sex) 11.6-1 5.4 Not Available [facility] (Lab) [address], [place], [address], 01/06/2025 12:29:49 01/06/20 25 01/05/2025 CBC W/DIF F HCT 41.1 % (based on docume nted legal sex) 34.0-4 5.0 Not Available [facility] (Lab) [address], [place], [address], 01/06/2025 12:29:49 01/06/20 25 01/05/2025 CBC W/DIF F MCV 88.6 fL 80.0-9 9.0 Not Available [facility] (Lab) [address], [place], [address], 01/06/2025 12:29:49 01/06/20 25 01/05/2025 CBC W/DIF F MCH 28.9 pg 27.0-3 4.0 Not Available [facility] (Lab) [address] [place], [address], 01/06/2025 12:29:49 01/06/20 25 01/05/2025 CBC W/DIF F MCHC 32.6 g/dL 32.0-3 5.5 Not Available [facility] (Lab) [address] [place], [address], 01/06/2025 12:29:49 01/06/20 25 01/05/2025 CBC W/DIF F RDW 13.9 % 11.0-1 5.0 Not Available [facility] (Lab) [address], [place], [address], 01/06/2025 12:29:49 01/06/20 25 01/05/2025 CBC W/DIF F plt 281 10'3/ uL 150-40 0 Not Available [facility] (Lab) [address], [place], [address], 01/06/2025 12:29:49 01/06/20 25 01/05/2025 CBC W/DIF F MPV 10.3 fL 8.8-12 .1 Not Available [facility] (Lab) [address], [place], [address], 01/06/2025 12:29:49 01/06/20 25 01/05/2025 CBC W/DIF F NRBC's 0.0 % 0.0 Not Available [facility] (Lab) [address], [place], [address], 01/06/2025 12:29:49 01/06/20 25 01/05/2025 CBC W/DIF F absolute NRBCs 0.0 10'3/ uL no refere nce range establ ished Not Available [facility] (Lab) [address], [place], [address], 01/06/2025 12:29:49 01/06/20 25 01/05/2025 CBC W/DIF F neutrophils 73.3 % 34.0-7 3.0 high Not Available [facility] (Lab) [address], [place], [address], 01/06/2025 12:29:49 01/06/20 25 01/05/2025 CBC W/DIF F lymphocytes 19.4 % 15.0-5 0.0 Not Available [facility] (Lab) [address], [place], [address], 01/06/2025 12:29:49 01/06/20 25 01/05/2025 CBC W/DIF F monocytes 5.0 % 1.0-15 .0 Not Available [facility] (Lab) [address], [place], [address], 01/06/2025 12:29:49 01/06/20 25 01/05/2025 CBC W/DIF F eosinophils 0.8 % 0.0-8. 0 Not Available [facility] (Lab) [address], [place], [address], 01/06/2025 12:29:49 01/06/20 25 01/05/2025 CBC W/DIF F basophils 0.7 % 0.0-2. 0 Not Available [facility] (Lab) [address], [place], [address], 01/06/2025 12:29:49 01/06/20 25 01/05/2025 CBC W/DIF [...] separ ately if prese nt. Not Available [facility] (Lab) [address], [place], [address], 01/06/2025 12:29:49 01/06/20 25 01/05/2025 CBC W/DIF F absolute neutrophils 8.4 10'3/ uL 1.5-8. 0 high Not Available [facility] (Lab) [address], [place], [address], 01/06/2025 12:29:49 01/06/20 25 01/05/2025 CBC W/DIF F absolute lymphocytes 2.2 10'3/ uL 1.0-4. 0 Not Available [facility] (Lab) [address], [place], [address], 01/06/2025 12:29:49 01/06/20 25 01/05/2025 CBC W/DIF F absolute monocytes 0.6 10'3/ uL 0.2-1. 0 Not Available [facility] (Lab) [address], [place], [address], 01/06/2025 12:29:49 01/06/20 25 01/05/2025 CBC W/DIF F absolute eosinophils 0.1 10'3/ uL 0.0-0. 6 Not Available [facility] (Lab) [address], [place], [address], 01/06/2025 12:29:49 01/06/20 25 01/05/2025 CBC W/DIF F absolute basophils 0.1 10'3/ uL 0.0-0. 3 Not Available [facility] (Lab) [address], [place], [address], 01/06/2025 12:29:49 01/06/2001/05/2025 CBC W/DIF F absolute [...] brady book. nm.or g/gen derx Not Available [facility] (Lab) [address], [place], [address], 01/06/2025 12:29:49 01/06/20 25 01/05/2025 RUBEL LA IGG ANTIB EMERSON, QUANT rubella antibodies, IgG Reacti ve reacti ve Not Available [facility] (Lab) [address], [place], [address], 01/06/2025 12:29:49 01/06/20 25 01/05/2025 RUBEL LA IGG ANTIB EMERSON, QUANT rubella antibodies, IgG quant 32.5 IU/mL >=10 Non-r eacti ve (Non- Immun e) <10 IU/mL React cameron (Immu ne) > or = 10 IU/mL Not Available [facility] (Lab) [address], [place], [address], 01/06/2025 12:29:49 01/06/20 25 01/05/2025 TYPE/ RH/SC REEN ABO/Rh type O NEG Not Available [facility] (Lab) [address], [place], [address], 01/06/2025 12:29:49 01/06/20 25 01/05/2025 TYPE/ RH/SC REEN antibody screen NEG Not Available [facility] (Lab) [address], [place], [address], 01/06/2025 12:29:49 01/06/20 25 01/05/2025 TYPE/ RH/SC REEN exp date 2024 23:59 Not Available [facility] (Lab) [address], [place], [address], 01/06/2025 12:29:49 01/06/20 25 01/05/2025 HEMOG LOBIN [...] >8.0% Actio n sugge sted Not Available [facility] (Lab) [address], [place], [address], 01/06/2025 12:29:50 01/06/20 25 01/05/2025 RPR SCREE N, REFLE X TITER /CONF IRMAT ION RPR qualitative Nonrea ctive nonrea ctive Not Available [facility] (Lab) [address], [place], [address], 01/06/2025 12:29:50 01/06/20 25 01/05/2025 CULTU RE: URINE result report SEE RESULT S BELOW Test: Cultu re: Urine Speci men Sourc e: Urine Voide d Speci men Type: Urine Speci men Date: 2024 1619 Resul t Date: 2024 0615 Resul t Statu s: Final resul t Abnor mal: No Resul ting Lab: [facility] [address] [facility] [address] Tel: CULTU RE ----- ----- ----- --- No growt h in 1 day (dete ction level of 10,00 0 colon ies / ml.) Not Available [facility] (Lab) [address], [place], [address], 01/07/2025 07:18:53 01/06/20 25 01/08/2025 US, obste tric, nucha l trans lucen cy No observ ation record ed. [email or web address] [facility] [address], [place], [address], 01/08/2025 12:15:22 01/06/20 25 01/05/2025 US, obste tric, follo w-up No observ ation record ed. [facility] [address], [place], [address], 01/08/2025 09:36:03 02/29/20 25 02/28/2025 US, obste tric, 2nd or 3rd trime ster No observ ation record ed. [email or web address] [facility] [address], [place], [address], 02/28/2025 18:22:40 02/29/20 25 02/28/2025 US, obste tric, 2nd or 3rd trime ster No observ ation record ed. [email or web address] [facility] [address], [place], [address], 03/02/2025 10:53:01 03/28/20 25 03/28/2025 US, obste tric, follo w-up No observ ation record ed. [facility] [address], [place], [address], 03/28/2025 13:44:08 03/28/20 25 03/28/2025 US, obste tric, follo w-up No observ ation record ed. [email or web address] [facility] [address], [place], [address], 04/02/2025 20:59:08 04/25/20 25 04/25/2025 US, obste tric, follo w-up No observ ation record ed. [email or web address] [place] [address] [address], [place], [address], 04/25/2025 12:09:39 04/25/20 25 04/25/2025 US, obste tric, follo w-up No observ ation record ed. [email or web address] [facility] [address], [place], [address], 05/03/2025 10:21:35 05/25/20 25 05/25/2025 US, obste tric, follo w-up No observ ation record ed. [email or web address] [facility] [address], [place], [address], 05/25/2025 13:42:24 05/25/20 25 05/25/2025 US, obste tric, follo w-up No observ ation record ed. [facility] [address], [place], [address], 05/25/2025 13:46:54 05/25/20 25 05/25/2025 US, doppl er, umbil ical arter y veloc imetr y No observ ation record ed. [facility] [address], [place], [address], 05/25/2025 13:47:07 05/25/20 25 05/25/2025 US, obste tric, bioph ysica l profi le + non-s tress test No observ ation record ed. [facility] [address], [place], [address], 05/25/2025 13:47:17 Result Notes None recorded. Problems Name Problem SNOMED Code Status Onset Date Resolution Date Notes Provider Name and Address Organization Details Recorded Time Past history of premature delivery 840782830 Active 202412/24/2024 delivered at 35wks Sanjuana Berry null, [facility] 20:34:59 Polycysti c ovary syndrome 694538342 Active 2024 Sanjuana Berry [facility], [facility] 20:35:15 Hyperchol ester[place] 04201995 Active 2024 Sanjuana Berry [facility], [facility] 20:35:40 71231656 Active 2024 Nicolasa Stokes null, [facility] 5 12:19:49 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 464213805 Active 2024 O-, needs rhogam at 28 wks Gema Brewer null, [facility] 5 11:21:29 Multigrav jazmine of advanced maternal age 796234708 Active 2024 Priya Palacio null, [facility] 5 14:14:49 Problem Notes None recorded. Procedures Surgical History Date Name Laterality Status Provider Name and Address Organization Details Recorded Time 08/24/2023 Date of Last Pap Smear completed Nicolasa Stokes [facility] 01/05/2025 12:19:24 Imaging Results None recorded. Procedure Notes None recorded. Medical Equipment None Reported. Allergies Allergen ID Allergen Name Allergen Category Reaction Reaction Severity Criticality Documentation Date Start Date Code Code System Note Provider Name and Address Organization Details Recorded Time amoxicill in medicatio n anaphylax is Not available high 08/24/2023 723 RxNorm Mallorie castillo, [facility]- [address], [place], [address] [place] [address], [facility] 17:45:51 Medications Name Sig Start Date [...] Not Available Not Available No t Available DETAIL DRAFTER-PNV-DHA 28 mg iron-1 mg-200 mg capsule Take [...] Updated DateTime 03/28/2025 170.18 cm 23.5 kg/m2 43640.86 g 101/61 mm[Hg] Tana Carlisle [facility] 03/28/2025 11:43:13 Social History Question Answer Notes LastModified by Organizat ion Details LastModified Time Tobacco Smoking Status Current Every Day Smoker Nicolasa marquez, [facility] 08/24/2023 17:27:19 Do You Have An Advance Directive? No [email or web address] Information not available 02/02/2025 If You Are , What Was Your Level Of Alcohol Consumption Prior To ? Occasional [email or web address] Information not available 12/13/2024 Are You Blind Or Do You Have Difficulty Seeing? No Information not available 08/24/2023 What Is Your Level Of Caffeine Consumption? Moderate [email or web address] Information not available 12/13/2024 How Much Tobacco Do You Chew? None [email or web address] Information not available 02/02/2025 In The 14 [...] Or The Highest Degree You Have Received? [id number] Information not available 08/24/2023 Are There Any [...] Age Did You Start Smoking Tobacco? 14 [email or web address] Information not available 02/02/2025 How Much Tobacco Do You Smoke? 0.5 PPD Information not available 08/24/2023 Do You Use Sunscreen Routinely? Yes Information not available 08/24/2023 Has Tobacco Cessation Counseling Been Provided? No [email or web address] Information not available 04/25/2025 How Many Years Have You Smoked Tobacco? 15 [email or web address] Information not available 02/02/2025 Have You Used IV Drugs? 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 No Information not available 08/24/2023 Do you or have you ever used e-cigarettes or vape? Former user of electronic cigarettes [email or web address] Information not available 12/13/2024 What is your exercise level? Occasional [email or web address] Information not available 03/28/2025 Mental Status Question Answer Note LastModified by Organization D etails LastModified Time Do you feel stressed (tense, restless, nervous, or anxious, or unable to sleep at night)? [id number] Information not available 08/24/2023 Family History Relationship [...] ICD10 Code Diagnosis IMO Codes Diagnosis Note [id number] Kit Lemus MD [facility] [address],[place] [address] 02/28/2025 15:15:51 02/28/2025 16:20:57 Ultrasound scan - obstetric 191521123 Z36.3 Z3A.20 43199 398609 Mitzi Gary CNM [facility] [address],[place] [address] 02/28/2025 15:16:07 02/28/2025 17:09:02 Gestation period, 20 weeks 19556298 Z3A.20 8379525 cont pnv [id number] Kit Lemus MD [facility] [address],[place] [address] 03/28/2025 10:52:36 03/28/2025 11:44:44 care status [id number] O36.5920 Z3A.24 [id number] [facility] [address] [place] [address] 03/28/2025 10:52:53 03/28/2025 12:30:45 Gestation period, 24 weeks 862763182 Z3A.24 [id number] Health Concerns Section Related Observation LastModified by Organization Detai ls LastModified Time None Recorded Concern Status LastModified by Organization Details LastModified Time None Recorded Payers Encounter Date Sequence Insurance Name Policy Number Policy Hicks Covered Member ID Hicks Member ID Guarantor Name 03/28/2025 1 [facility] (MEDICAID HMO) [id number] Laurel Quezada [id number] Laurel Quezada Notes Date Note Type Note Provider Name and Address Organization Details Recorded Time 03/28/2025 text/html Generic HPI TemplateReported by Patient Mitzi LiraAyla Gary, [facility] [address], [place], [address], [facility] 03/28/2025 12:29:57 OBGyn Episode Ob Episode Information Episode Created Date Number of Fetuses Patient Bloodtype Patient rh Status Prepregnancy Weight lbs Domestic Partner Domestic Partner Phone Father Name Implementation Analyst Status 01/06/20 25 1 O Negative Kev OPEN Fetus Data First Name Last Name Admitted to NICU Weight (g) Sex Living Outcome Pediatric Complications Fetus ID Race Codes Race Delivery Type [id number] Problems Problem Notes unsure if nsts for elevate b lood pressure- start bASA Problem Name Start Date End Date Resolution Snomed Code Not e 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 01/08/2025 435288511 O-, ne eds rhogam at 28 wks Multigravida of advanced maternal age 0702/06/2025 542741779 Rufino Calculation Initial Rufino Date Initial Exam [...] Weight in lbs Pre/Post Dialysis Refused Weight 134.75974349243 BP Diastolic BP Location Tested BP Systolic [...] Weight in lbs Pre/Post Dialysis Refused Weight 140.371663268626 BP Diastolic BP Location Tested BP Systolic [...] Weight in lbs Pre/Post Dialysis Refused Weight 146.211273174753 BP Diastolic BP Location Tested BP Systolic [...] Weight in lbs Pre/Post Dialysis Refused Weight 150.014299007355 BP Diastolic BP Location Tested BP Systolic [...] Weight in lbs Pre/Post Dialysis Refused Weight 155.790812449351 BP Diastolic BP Location Tested BP Systolic [...] Weight in lbs Pre/Post Dialysis Refused Weight 161.822590082884 BP Diastolic BP Location Tested BP Systolic [...]
--- OUTSIDE RECORDS SUMMARY | 2025-05-25 16:41 | XMS_ITS | Continuity of Care Document ---
Author Organization [facility], [place] Address [address] [place] [address] Care Team Providers Care Vp Global Name Role Phone ISABELLA ARAYA Primary Care Provider [phone] Assessment No assessment recorded. Plan of Treatment [...] None recorde d. Imaging US, obstetr ic, 2nd or 3rd trimest er 2024 025 [email or web address] [place], [address], [place], [address], 02/28/2025 18:46:00 Medication Orders None recorde d. Patient TargetsNo targets recorded. Patient InstructionsNo instructions recorded. Reason for Referral None Reported. Results Created Date Observation Date Name Description Value Unit Range Abnormal Flag Note LastModifiedBy Organization Detail LastModifiedTime 01/12/2001/11/2025 [UNIT Y] ANEUP LOIDY NIPT fraction 6.1% normal Not Available Sydnee king [address], [place], [address], 01/11/2025 23:47:04 01/12/20 25 01/11/2025 [UNIT Y] ANEUP LOIDY NIPT 22Q11.2 microdeletio n LOW RISK <1 in 10,000 normal Not Available [facility] [address], [place], [address], 01/11/2025 23:47:04 01/12/20 25 01/11/2025 [UNIT Y] ANEUP LOIDY NIPT sex chromosome aneuploidy NOT DETECT ED normal Not Available [facility] [address], [place], [address], 01/11/2025 23:47:04 01/12/20 25 01/11/2025 [UNIT Y] ANEUP LOIDY NIPT monosomy X LOW RISK <1 in 10,000 normal Not Available [facility] [address], [place], [address], 01/11/2025 23:47:04 01/12/20 25 01/11/2025 [UNIT Y] ANEUP LOIDY NIPT trisomy 13 LOW RISK <1 in 10,000 normal Not Available [facility] [address], [place], [address], 01/11/2025 23:47:04 01/12/20 25 01/11/2025 [UNIT Y] ANEUP LOIDY NIPT trisomy 18 LOW RISK <1 in 10,000 normal Not Available [facility] [address], [place], [address], 01/11/2025 23:47:04 01/12/20 25 01/11/2025 [UNIT Y] ANEUP LOIDY NIPT trisomy 21 LOW RISK <1 in 10,000 normal Not Available [facility] [address], [place], [address], 01/11/2025 23:47:04 01/12/20 25 01/11/2025 [UNIT Y] ANEUP LOIDY NIPT sex MALE normal Not Available [facility] [address], [place], [address], 01/11/2025 23:47:04 07/03/20 25 01/11/2025 [UNIT Y] ANEUP LOIDY NIPT gestation SINGLE TON normal Not Available [facility] [address], [place], [address], 01/11/2025 23:47:04 01/12/20 25 01/11/2025 [UNIT Y] ANEUP LOIDY NIPT for detailed report, see pdf See PDF normal Not Available [facility] [address], [place], [address], 01/11/2025 23:47:04 01/16/20 25 01/15/2025 [UNIT Y] CAIN Mello sickle cell disease/beta -thalassemia /hemoglobino pathies carrier screen NEGATI VE normal Not Available [facility] [address], [place], [address], 01/15/2025 21:16:52 01/16/20 25 01/15/2025 [UNIT Y] CAIN Mello alpha-thalas semia carrier screen NEGATI VE normal Not Available [facility] [address], [place], [address], 01/15/2025 21:16:52 01/16/20 25 01/15/2025 [UNIT Y] CAIN Mello cystic fibrosis carrier screen NEGATI VE normal Not Available [facility] [address], [place], [address], 01/15/2025 21:16:52 01/16/20 25 01/15/2025 [UNIT Y] CAIN Mello spinal muscular atrophy carrier screen NEGATI VE 2 SMN1 copies , SNP not presen t normal Not Available [facility] [address], [place], [address], 01/15/2025 21:16:52 01/16/20 25 01/15/2025 [UNIT Y] CAIN Mello for detailed report, see pdf See PDF normal Not Available [facility] [address], [place], [address], 01/15/2025 21:16:52 01/06/2001/05/2025 HEPAT ITIS B SURFA CE ANTIG EN hepatitis B surface antigen Non-re active non-re active This assay was perfo rmed using [employer] ratio n reage nts and test kits. Value s obtai topher with other assay metho ds or kits canno t be used inter clements eably . Not Available [facility] (Lab) [address], [place], [address], 01/06/2025 12:29:48 01/06/2001/05/2025 HEPAT ITIS C ANTIB EMERSON SCREE N, REFLE X TO CONFI RMATI ON hepatitis C antibody Non-re active non-re active Antib odies to HCV Not Detec sharan, does not exclu de the possi bilit y of expos ure to HCV. Not Available [facility] (Lab) [address], [place], [address], 01/06/2025 12:29:48 01/06/2001/05/2025 HIV 1/2 ANTIG EN/AN TIBOD Y, REFLE X CONFI RMATI ON HIV antigen/anti body Nonrea ctive nonrea ctive HIV-1 antig en and HIV-1 /HIV- 2 antib odies were not detec sharan. No labor atory evide nce of HIV infec tion. Not Available [facility] (Lab) [address], [place], [address], 01/06/2025 12:29:48 01/06/2001/05/2025 CBC W/DIF F WBC 11.5 10'3/ uL 3.5-10 .5 high Not Available [facility] (Lab) [address], [place], [address], 01/06/2025 12:29:49 01/06/20 25 01/05/2025 CBC W/DIF F RBC 4.64 10'6/ uL (based on docume nted legal sex) 3.80-5 .20 Not Available [facility] (Lab) [address], [place], [address], 01/06/2025 12:29:49 01/06/20 25 01/05/2025 CBC W/DIF F HGB 13.4 g/dL (based on docume nted legal sex) 11.6-1 5.4 Not Available [facility] (Lab) [address], [place], [address], 01/06/2025 12:29:49 01/06/20 25 01/05/2025 CBC W/DIF F HCT 41.1 % (based on docume nted legal sex) 34.0-4 5.0 Not Available [facility] (Lab) [address], [place], [address], 01/06/2025 12:29:49 01/06/20 25 01/05/2025 CBC W/DIF F MCV 88.6 fL 80.0-9 9.0 Not Available [facility] (Lab) [address], [place], [address], 01/06/2025 12:29:49 01/06/20 25 01/05/2025 CBC W/DIF F MCH 28.9 pg 27.0-3 4.0 Not Available [facility] (Lab) [address] , [place], [address], 01/06/2025 12:29:49 01/06/20 25 01/05/2025 CBC W/DIF F MCHC 32.6 g/dL 32.0-3 5.5 Not Available [facility] (Lab) [address] [place], [address], 01/06/2025 12:29:49 01/06/20 25 01/05/2025 CBC W/DIF F RDW 13.9 % 11.0-1 5.0 Not Available [facility] (Lab) [address] [place], [address], 01/06/2025 12:29:49 01/06/20 25 01/05/2025 CBC W/DIF F plt 281 10'3/ uL 150-40 0 Not Available [facility] (Lab) [address], [place], [address], 01/06/2025 12:29:49 01/06/20 25 01/05/2025 CBC W/DIF F MPV 10.3 fL 8.8-12 .1 Not Available [facility] (Lab) [address], [place], [address], 01/06/2025 12:29:49 01/06/20 25 01/05/2025 CBC W/DIF F NRBC's 0.0 % 0.0 Not Available [facility] (Lab) [address], [place], [address], 01/06/2025 12:29:49 01/06/20 25 01/05/2025 CBC W/DIF F absolute NRBCs 0.0 10'3/ uL no refere nce range establ ished Not Available [facility] (Lab) [address], [place], [address], 01/06/2025 12:29:49 01/06/20 25 01/05/2025 CBC W/DIF F neutrophils 73.3 % 34.0-7 3.0 high Not Available [facility] (Lab) [address], [place], [address], 01/06/2025 12:29:49 01/06/20 25 01/05/2025 CBC W/DIF F lymphocytes 19.4 % 15.0-5 0.0 Not Available [facility] (Lab) [address], [place], [address], 01/06/2025 12:29:49 01/06/20 25 01/05/2025 CBC W/DIF F monocytes 5.0 % 1.0-15 .0 Not Available [facility] (Lab) [address], [place], [address], 01/06/2025 12:29:49 01/06/20 25 01/05/2025 CBC W/DIF F eosinophils 0.8 % 0.0-8. 0 Not Available [facility] (Lab) [address], [place], [address], 01/06/2025 12:29:49 01/06/20 25 01/05/2025 CBC W/DIF F basophils 0.7 % 0.0-2. 0 Not Available [facility] (Lab) [address], [place], [address], 01/06/2025 12:29:49 01/06/20 25 01/05/2025 CBC W/DIF [...] separ ately if prese nt. Not Available [facility] (Lab) [address], [place], [address], 01/06/2025 12:29:49 01/06/20 25 01/05/2025 CBC W/DIF F absolute neutrophils 8.4 10'3/ uL 1.5-8. 0 high Not Available [facility] (Lab) [address], [place], [address], 01/06/2025 12:29:49 01/06/20 25 01/05/2025 CBC W/DIF F absolute lymphocytes 2.2 10'3/ uL 1.0-4. 0 Not Available [facility] (Lab) [address], [place], [address], 01/06/2025 12:29:49 01/06/20 25 01/05/2025 CBC W/DIF F absolute monocytes 0.6 10'3/ uL 0.2-1. 0 Not Available [facility] (Lab) [address], [place], [address], 01/06/2025 12:29:49 01/06/20 25 01/05/2025 CBC W/DIF F absolute eosinophils 0.1 10'3/ uL 0.0-0. 6 Not Available [facility] (Lab) [address], [place], [address], 01/06/2025 12:29:49 01/06/20 25 01/05/2025 CBC W/DIF F absolute basophils 0.1 10'3/ uL 0.0-0. 3 Not Available [facility] (Lab) [address], [place], [address], 01/06/2025 12:29:49 01/06/2001/05/2025 CBC W/DIF F absolute [...] the indiv idual patie nt: https ://la federico book. nm.or g/gen derx Not Available [facility] (Lab) [address], [place], [address], 01/06/2025 12:29:49 01/06/2001/05/2025 RUBEL LA IGG ANTIB EMERSON, QUANT rubella antibodies, IgG Reacti ve reacti ve Not Available [facility] (Lab) [address], [place], [address], 01/06/2025 12:29:49 01/06/20 25 01/05/2025 RUBEL LA IGG ANTIB EMERSON, QUANT rubella antibodies, IgG quant 32.5 IU/mL >=10 Non-r eacti ve (Non- Immun e) <10 IU/mL React cameron (Immu ne) > or = 10 IU/mL Not Available [facility] (Lab) [address], [place], [address], 01/06/2025 12:29:49 01/06/20 25 01/05/2025 TYPE/ RH/SC REEN ABO/Rh type O NEG Not Available [facility] (Lab) [address], [place], [address], 01/06/2025 12:29:49 01/06/20 25 01/05/2025 TYPE/ RH/SC REEN antibody screen NEG Not Available [facility] (Lab) [address], [place], [address], 01/06/2025 12:29:49 01/06/2001/05/2025 TYPE/ RH/SC REEN exp date 2024 23:59 Not Available [facility] (Lab) [address], [place], [address], 01/06/2025 12:29:49 01/06/2001/05/2025 HEMOG LOBIN A1C hemoglobin A1C 5.3 % [...] >8.0% Actio n sugge sted Not Available [facility] (Lab) [address], [place], [address], 01/06/2025 12:29:50 01/06/20 25 01/05/2025 RPR SCREE N, REFLE X TITER /CONF IRMAT ION RPR qualitative Nonrea ctive nonrea ctive Not Available [facility] (Lab) [address], [place], [address], 01/06/2025 12:29:50 01/06/20 25 01/05/2025 CULTU RE: URINE result report SEE RESULT S BELOW Test: Cultu re: Urine Speci men Sourc e: Urine Voide d Speci men Type: Urine Speci men Date: 2024 1619 Resul t Date: 2024 0615 Resul t Statu s: Final resul t Abnor mal: No Resul ting Lab: [facility] [address] [facility] [address] Tel: CULTU RE ----- ----- ----- --- No growt h in 1 day (dete ction level of 10,00 0 colon ies / ml.) Not Available [facility] (Lab) [address], [place], [address], 01/07/2025 07:18:53 01/06/20 25 01/08/2025 US, obste tric, nucha l trans lucen cy No observ ation record ed. [email or web address] [place] [address], [place], [address], 01/08/2025 12:15:22 01/06/20 25 01/05/2025 US, obste tric, follo w-up No observ ation record ed. [email or web address] [place] [address], [place], [address], 01/08/2025 09:36:03 02/29/20 25 02/28/2025 US, obste tric, 2nd or 3rd trime ster No observ ation record ed. [email or web address] [place] [address], [place], [address], 02/28/2025 18:22:40 02/29/20 25 02/28/2025 US, obste tric, 2nd or 3rd trime ster No observ ation record ed. [email or web address] [place] [address], [place], [address], 03/02/2025 10:53:01 03/28/20 25 03/28/2025 US, obste tric, follo w-up No observ ation record ed. [facility] [address], [place], [address], 03/28/2025 13:44:08 03/28/20 25 03/28/2025 US, obste tric, follo w-up No observ ation record ed. [email or web address] [place] [address], [place], [address], 04/02/2025 20:59:08 04/25/20 25 04/25/2025 US, obste tric, follo w-up No observ ation record ed. [email or web address] [place] [address], [place], [address], 04/25/2025 12:09:39 04/25/20 25 04/25/2025 US, obste tric, follo w-up No observ ation record ed. [email or web address] [place] [address], [place], [address], 05/03/2025 10:21:35 05/25/20 25 05/25/2025 US, obste tric, follo w-up No observ ation record ed. [email or web address] [place] [address], [place], [address], 05/25/2025 13:42:24 05/25/20 25 05/25/2025 US, obste tric, follo w-up [facility] observ [email or web address] [address], [place], [address], 05/25/2025 13:46:54 05/25/20 25 05/25/2025 US, doppl er, umbil ical arter y veloc imetr y No observ ation record ed. [facility] [address], [place], [address], 05/25/2025 13:47:07 05/25/20 25 05/25/2025 US, obste tric, bioph ysica l profi le + non-s tress test No observ ation record ed. [facility] [address], [place], [address], 05/25/2025 13:47:17 Result Notes None recorded. Problems Name Problem SNOMED Code Status Onset Date Resolution Date Notes Provider Name and Address Organization Details Recorded Time Past history of premature delivery 220055737 Active 202412/24/2024 delivered at 35wks Sanjuana Berry null, [facility] 5 20:34:59 Polycysti c ovary syndrome 673081888 Active 2024 Sanjuana Berry null, [facility] 5 20:35:15 Hyperchol esterolem ia 33324733 Active 2024 Sanjuana Berry null, [facility] 5 20:35:40 80234947 Active 2024 Nicolasa Stokes null, [facility] 5 12:19:49 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 058745922 Active 2024 O-, needs rhogam at 28 wks Gema Brewer null, [facility] 5 11:21:29 Multigrav jazmine of advanced maternal age 285480860 Active 2024 Priya Palacio null, [facility] 5 14:14:49 Problem Notes None recorded. Procedures Surgical History Date Name Laterality Status Provider Name and Address Organization Details Recorded Time 08/24/2023 Date of Last Pap Smear completed Nicolasa Stokes [facility] 01/05/2025 12:19:24 Imaging Results None recorded. Procedure Notes None recorded. Medical Equipment None Reported. Allergies Allergen ID Allergen Name Allergen Category Reaction Reaction Severity Criticality Documentation Date Start Date Code Code System Note Provider Name and Address Organization Details Recorded Time 63017 amoxicill in medicatio n anaphylax is Not available high 08/24/2023 723 RxNorm Mallorie castillo, [facility]- [address], [place], [address] [place] [address], P[facility] 4 17:45:51 Medications Name Sig Start [...] Not Available Not Available No t Available [employer] [facility]-PNV-DHA 28 mg iron-1 mg-200 mg capsule Take 1 capsule every day by oral route as directed for 30 days. 2024 active Not Available Not Available Not Avai lable Annovera 0.15 mg-0.013 mg/24 hr vaginal ring 02/13 /2024 completed Not Available Not Available Not Available [...] Updated DateTime 02/28/2025 170.18 cm 22.9 kg/m2 17385.49 g 102/67 mm[Hg] Tana Carlisle [facility] 02/28/2025 16:39:32 Social History Question Answer Notes LastModified by Organizat ion Details LastModified Time Tobacco Smoking Status Current Every Day Smoker Nicolasa marquez, [facility] 08/24/2023 17:27:19 Do You Have An Advance Directive? No [email or web address] Information not available 02/02/2025 If You Are , What Was Your Level Of Alcohol Consumption Prior To ? Occasional [email or web address] Information not available 12/13/2024 Are You Blind Or Do You Have Difficulty Seeing? No Information not available 08/24/2023 What Is Your Level Of Caffeine Consumption? Moderate [email or web address] Information not available 12/13/2024 How Much Tobacco Do You Chew? None [email or web address] Information not available 02/02/2025 In The 14 [...] Or The Highest Degree You Have Received? [id number] Information not available 08/24/2023 Are There Any [...] Age Did You Start Smoking Tobacco? 14 [email or web address] Information not available 02/02/2025 How Much Tobacco Do You Smoke? 0.5 PPD Information not available 08/24/2023 Do You Use Sunscreen Routinely? Yes Information not available 08/24/2023 Has Tobacco Cessation Counseling Been Provided? No [email or web address] Information not available 04/25/2025 How Many Years Have You Smoked Tobacco? 15 Information not available 02/02/2025 Have You Used IV Drugs? No [email or web address] Information not available 02/02/2025 Do You Have Difficulty Walking Or Climbing Stairs? No Information not available 08/24/2023 Sex: Unknown Functional Status Question Answer Note LastModified by Organizat ion Details LastModified Time Do you use any illicit or recreational drugs? Yes [email or web address] Information not available 02/28/2025 Do you or have you ever used any other forms of tobacco or nicotine? Yes [email or web address] Information not available 12/13/2024 What is your level of alcohol consumption? None Information not available 08/24/2023 Are you currently employed? No Information not available 08/24/2023 Are you able to walk independently without assistance or assistive devices? [email or web address] Information not available 08/24/2023 Are you able to care for yourself independently? Yes Information not available 08/24/2023 What is your occupation? [employer] [email or web address] Information not available 02/02/2025 Do you have difficulty dressing, bathing, grooming, or toileting? No Information not available 08/24/2023 Do you or have you ever used e-cigarettes or vape? Former user of electronic cigarettes [email or web address] Information not available 12/13/2024 What is your exercise level? Occasional [email or web address] Information not available 03/28/2025 Mental Status Question Answer Note LastModified by Organization D etails LastModified Time Do you feel stressed (tense, restless, nervous, or anxious, or unable to sleep at night)? [id number] Information not available 08/24/2023 Family History Relationship [...] ICD10 Code Diagnosis IMO Codes Diagnosis Note [id number] Mitzi Gary CNM [place] [address],[place] [address] 02/02/2025 15:20:11 02/02/2025 15:52:47 Gestation period, 16 weeks 11269163 Z3A.16 [id number] cont pnv [id number] Kit Lemus MD [place] [address],[place] [address] 02/28/2025 15:15:51 02/28/2025 16:20:57 Ultrasound scan - obstetric 436989557 Z36.3 Z3A.20 [id number] [facility] [address],[place] [address] 02/28/2025 15:16:07 02/28/2025 17:09:02 Gestation period, 20 weeks 00265663 Z3A.20 [id number] cont pnv Health Concerns Section Related Observation LastModified by Organization Detai ls LastModified Time None Recorded Concern Status LastModified by Organization Details LastModified Time None Recorded Payers Encounter Date Sequence Insurance Name Policy Number Policy Hicks Covered Member ID Hicks Member ID Guarantor Name 02/28/2025 1 [facility] (MEDICAID HMO) [id number] Laurel Will [id number] Laurel Will Notes Date Note Type Note Provider Name and Address Organization Details Recorded Time 02/28/2025 text/html Generic HPI TemplateReported by Patient Mitzi Hangle, CNM [address], [place], [address], [facility] 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 Status 01/06/20 25 1 O Negative Kev OPEN Fetus Data First Name Last Name Admitted to NICU Weight (g) Sex Living Outcome Pediatric Complications Fetus ID Race Codes Race Delivery Type [id number] Problems Problem Notes unsure if nsts for elevate b lood pressure- start bASA Problem Name Start Date End Date Resolution Snomed Code Not e 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 01/08/2025 601842545 O-, ne eds rhogam at 28 wks Multigravida of advanced maternal age 0702/06/2025 509101696 Rufino Calculation Initial Rufino Date Initial Exam [...] Weight in lbs Pre/Post Dialysis Refused Weight 134.40100901829 BP Diastolic BP Location Tested BP Systolic [...] Weight in lbs Pre/Post Dialysis Refused Weight 140.212676905709 BP Diastolic BP Location Tested BP Systolic [...] Weight in lbs Pre/Post Dialysis Refused Weight 146.571881007298 BP Diastolic BP Location Tested BP Systolic [...] Weight in lbs Pre/Post Dialysis Refused Weight 150.821859836464 BP Diastolic BP Location Tested BP Systolic BP Type 61 L arm 101 sitting Fetus Heart Rate Present Fetus Movement A Yes Comments +FM reviewed us, ? adenomyos is, efw 17%, hc 7%, hx heavy painful cycles, can discuss after delivery, f/u growth 4 weeks, plan gct and rhogam at [place] Flowsheet Date 04/25/2025 Kessler Score Blood Edema [...] Weight in lbs Pre/Post Dialysis Refused Weight 155.160525488657 BP Diastolic BP Location Tested BP Systolic [...] Weight in lbs Pre/Post Dialysis Refused Weight 161.539054049817 BP Diastolic BP Location Tested BP Systolic [...]
--- NOTE | 2025-05-30 06:52 | P.PNOB_ITS ---
OB - Triage/Final Diagnosis Visit Information Date of evaluation: 05/25/25 Reason for evaluation: threatened labor Comments/Additional reasons for admission: I have assessed the risk for this patient, Laurel Quezada, and determined that she would benefit from observation care. Evaluation Laboratory results: Laboratory Tests 05/25/25 11:47 Urine Color Yellow Urine Appearance Clear Urine pH 8.0 Ur Specific [place] 1.004 Urine Protein Negative Urine Glucose (UA) Negative Urine Ketones Negative Ur Blood (Man) Negative Urine Nitrate Negative Urine Bilirubin Negative Urine Urobilinogen 0.2 Ur Leukocyte Esterase 1+ H Add Ur Microanalysis Reviewed Urine RBC 0-2 Urine WBC 0-5 Ur Squamous Epith Cells Occasional Urine Bacteria None seen Urine Casts 0-2
== END 2025-05-25 15:10 ==
PROVIDERS: Advanced Practice Midwife; Admitting Provider Obstetrics & Gynecology; PCP Physician Assistant Medical; Visit Provider Obstetrics & Gynecology
DX: O47.03 False labor before 37 completed weeks of gestation, third trimester (principal); Z3A.32 32 weeks gestation of pregnancy
CPT/HCPCS: 81001; 96372; A9270; G0378; G0379; J0702; J3105; J7120

== ENCOUNTER 2025-05-26 13:28 | Outpatient (CLI) | payer OTHER, SELFPAY ==
[2025-05-26] MEDS: BETAMETHASONE SOD PHOS/ACETATE 30 MG/5 ML VIAL 12 MG IM (13:40)
== END 2025-05-26 13:29 | disposition home or self-care (01) ==
LOC: ANHOBOP 13:34
PROVIDERS: PCP Physician Assistant Medical; Visit Provider Advanced Practice Midwife
DX: Z34.90 Encounter for supervision of normal pregnancy, unspecified, unspecified trimester (principal); Z3A.00 Weeks of gestation of pregnancy not specified
CPT/HCPCS: 96372; J0702

== ENCOUNTER 2025-07-03 04:52 | Inpatient (IN) | payer OTHER, SELFPAY ==
[2025-07-03] VITALS (139 sets, daily range): BP systolic 81–133; BP diastolic 43–82; PULSE 55–114; RESP 18; TEMP 36.4–37.1; O2SAT 96–100; BMI 25.9
[2025-07-03 05:22] LABS: Hematocrit 39.1 % (37.0-47.0); Hemoglobin 12.7 g/dL (12.0-15.0); Immature Granulocyte Percent A 2.7 % (0-0.5); Lymphocytes Absolute Auto 3.61 K/mm3 (0.9-3.2); Mean Corpuscular HGB Conc 32.5 g/dl (32-36); Mean Corpuscular Hemoglobin 28.8 pg (26-34); Mean Corpuscular Volume 88.7 fl (80-100); Nucleated Red Blood Cells Absolute Auto 0.000 K/mm3 (0.0-0.012); Nucleated Red Blood Cells Perc 0.0 % (0.0-0.2); Platelet Count Result 265 k/mm3 (150-375); Red Blood Count 4.41 M/mm3 (4.2-5.4); White Blood Count 15.9 K/mm3 (4.5-10.0)
--- NOTE | 2025-07-03 05:33 | LDADM ---
This patient, Laurel Quezada, was admitted to Labor/Delivery/Recovery 106 on 07/03/25 at 04:52. Plans for labor, pain management and were discussed with patient. Patient/family oriented to hospital policies and general routines including ID bracelet, bed and alarms, visiting hours, pain management, procedures, bathroom and other care routines, personal items, smoking policy, room service/diet and guest tray routines, security routines, and visiting hours. Patient/Family are encouraged to report perceived risks to care and to ask questions if they do not understand what they are told or what they should do. See OBIX for further documentation.
[2025-07-03] MEDS: LACTATED RINGERS 1,000 ML 125 ML IV CONT ×3 (05:45→15:59)
[2025-07-03] MEDS: OXYTOCIN 30 UNITS/NS 500 ML 30 UNITS/500 ML BAG IV CONT (05:45)
[2025-07-03 06:26] LABS: Syphilis IgG/IgM Antibody Non-Reactive (Nonreactive)
[2025-07-03 07:27] LABS: HIV 1/2 Ab P24 Ag Result Negative (Negative)
--- NOTE | 2025-07-03 07:37 | WPDOBADMIT ---
Obstetrics - Admit Note Admission Note: record reviewed. No pertinent additions to the history and/or any subsequent changes in the physical findings that are not consistent with the expected course of the were found. Additions to the history and/or subsequent changes in the physical findings follow. Admit for IOL, SGA, SVE /-2 arom clear fluid, anticipate vaginal delivery
--- NOTE | 2025-07-03 13:17 | PM.OBPNLAB ---
Pain Control Date/time seen: 07/03/25 13:17 Pelvic Exam Dilation (cm): 4 Effacement (%): 70 station: -2 Comments: reviewed strip interventions, will continue to monitor, dr. aguirre aware
[2025-07-03] MEDS: ePHEDrine sulfate INJ 50 MG/ML AMPUL (13:39)
[2025-07-03] MEDS: ePHEDrine sulfate INJ 50 MG/ML AMPUL IV PUSH (14:26)
[2025-07-03] MEDS: ePHEDrine sulfate INJ 50 MG/ML AMPUL 10 MG IV PUSH (16:03)
[2025-07-03] MEDS: SODIUM CHLORIDE 0.9% IV 300 ML 600 ML I-UTERINE (16:14)
[2025-07-03] MEDS: SODIUM CHLORIDE 0.9% IV 1,000 ML 150 ML I-UTERINE (16:41)
--- NOTE | 2025-07-03 17:06 | P.PCNOB_ITS ---
OB - Vaginal Delivery Note Procedure Delivery date: 07/03/25 Events: Intrauterine Growth Restriction (IUGR) Intrapartal Events: Decelerations Induction method: AROM and Per Pitocin Protocol Delivery monitor: Internal FHT and Internal Uterine Route of delivery: Episiotomy description: None Laceration Description: None Specimen: No Quantitative Blood Loss (ml): 150 Anesthesia type: Epidural Disposition: Floor Complications: No immediate complications [place] Baby Date of : 07/03/25 Time of : 16:55 Gestational Age by Date: 38 Infant gender: Male presentation: vertex position: Right Occiput Anterior Placenta delivery description: Expressed Cord Vessel Description: 3 Vessels, Nuchal Cord, Loose, Reduced and Delayed Cord Clamping score one minute: 8 score five minutes: 9
[2025-07-03] MEDS: OXYTOCIN 30 UNITS/NS 500 ML 30 UNITS/500 ML BAG 125 UNITS IV CONT (17:29)
[2025-07-03] MEDS: IBUPROFEN 600 MG TABLET PO (20:41)
--- NOTE | 2025-07-03 22:08 | OBPPTRN ---
Patient transferred to post room #281 via wheelchair at 2005. Support person present. Oriented to unit, room, information board, rooming in, admission packet and security measures. Patient verbalizes understanding.
[2025-07-04 00:24] VITALS: BP 100/50; PULSE 74; RESP 14; TEMP 37.1; O2SAT 97
[2025-07-04 03:37] LABS: Hematocrit 35.2 % (37.0-47.0); Hemoglobin 11.4 g/dL (12.0-15.0)
--- NOTE | 2025-07-04 06:32 | P.PNOB_ITS ---
OB - PN: Subj Subjective Date/time seen: 07/04/25 06:32 Interval history: pp day 1 doing well discharge home this evening OB - PN: Obj Data Labs 07/04/25 03:26 Labs: Laboratory Results - last 24 hr 07/03/25 07/03/25 07/04/25 05:03 06:16 03:26 Hgb 11.4 L Hct 35.2 L HIV 1&2 Ab/P24 Ag 4thGn Negative Antibody Identification Passive Due to RH Imm Glob Antigen Identification TNP FREDDY, IgG Interpret TNP FREDDY, Poly Interpret Negative FREDDY, Complement Interp TNP OB - PN A/P Plan day: 1 Plan: routine care Time Spent With Patient Time: Total time spent is greater than 50% in coordination of care (as documented) at patient's floor/unit and/or counseling patient: Review of Systems 2 Review of Systems: All systems reviewed & are unremarkable except as noted in HPI and below Exam 2 Const: General: cooperative, healthy appearing and comfortable Chest: Chest palpation & inspection: normal inspection of the chest Resp: Effort & Inspection: normal respiratory effort Cardio: Rate: regular rate
--- NOTE | 2025-07-04 06:34 | P.DS_ITS ---
DS: Admitting Diagnosis Discharge Date Admitting Diagnosis IOL, SGA DS: Discharge Diagnosis Discharge Diagnosis (1) Vaginal delivery: Code(s): O80 - Encounter for full-term uncomplicated delivery Status: Acute OB - DS: Summary OB Procedures : None OB Procedures Intrapartum: Spontaneous Vag Delivery OB Procedures: : None Peripartum Data Laceration Description: None Episiotomy description: None Time Spent with Patient Time attestation: Total time spent providing and/or coordinating discharge services: DS: Data Data Completed and Pending Labs on day of discharge: Labs from last 24 hours 07/04/25 07/03/25 07/03/25 03:26 06:16 05:03 Hgb 11.4 L Hct 35.2 L HIV 1&2 Ab/P24 Ag 4thGn Negative Antibody Identification Passive Due to RH Imm Glob Antigen Identification TNP FREDDY, IgG Interpret TNP FREDDY, Poly Interpret Negative FREDDY, Complement Interp TNP Discharge Plan Discharge Attending physician on discharge: Kit Wong Discharging Clinician: Mitzi Gary Patient Disposition: Home Activity: pelvic rest Diet: regular Patient Instructions: Antibiotic Form Patient Language: Romansh Stand Alone Forms: General Discharge Information Follow-up/Referrals: Mitzi Gary, CNM [Certified Nurse Pipe Finishing Supervisor, AGRICULTURAL RESEARCH ENGINEER] - 4 Weeks Discharge Medications: Continued PNV no.95-ferrous fumarate-FA [] 28 mg iron- 800 mcg tablet 1 tablet PO DAILY Date of admission: 07/03/25 04:52 Primary Care Provider: PapiIsaac Admitting Provider: Kit Wong Attending physician on admission: Mitzi Gary Condition: Stable
[2025-07-04 07:05] VITALS: BP 91/64; PULSE 68; RESP 16; TEMP 36.8; O2SAT 98
[2025-07-04] MEDS: DOCUSATE SODIUM 100 MG CAPSULE PO ×2 (08:46→22:12)
[2025-07-04] MEDS: MULTIVIT/MIN/PREN/FOL AC/IRON TABLET 1 TAB PO (08:46)
--- NOTE | 2025-07-04 09:40 | PC.NURSE ---
Consulted with patient to assess needs related to . Discussed with mother her successes, concerns and any questions she has. Per mother, infant had latched over night but is now not showing any interest and had received drops of colostrum with the last feeding. Mother is able to hand express, giving drops, going to keep infant in feeding position, watch for feeding cues and try again. We reviewed working with the , supporting breast, protecting her nipples with an optimal deep latch, good positioning, and good hand washing. Encouraged understanding the benefits of skin to skin, responding to feeding cues, frequencies of feeding 8-12 times in 24 hours (approximately 2-3 hours), duration of feedings, milk production, intake/output feeding sheet and signs of adequate intake encouraging swallowing at the breast. Reviewed positioning and alignment, supporting breast, off-centered (asymmetrical latch) and leading with the chin with big, open, wide gape. Education given to the mother of how to visualize the suckling (with good rocking jaw motion) swallows (dropping of the lower jaw) and how to listen for drinking at the breast (the ka sound). Nipple care reviewed with optimal latch, good positioning and using clean hands when touching her breast. Resources used to facilitate learning were used from the [visual handouts/ tool/mom and baby guide]. Mother voiced understanding of the education shared, to call for assistance if the infant does not latch or if there is discomfort with . Reported to the Primary RN, who will follow up with mother with the next feeding.
[2025-07-04 12:33] VITALS: BP 102/67; PULSE 75; RESP 18; TEMP 36.9; O2SAT 98
[2025-07-04] MEDS: IBUPROFEN 600 MG TABLET PO (14:28)
[2025-07-04 19:42] VITALS: BP 102/66; PULSE 77; RESP 18; TEMP 36.8; O2SAT 99
[2025-07-05] MEDS: DOCUSATE SODIUM 100 MG CAPSULE PO (05:45)
[2025-07-05 07:50] VITALS: BP 114/65; PULSE 72; RESP 16; TEMP 36.8; O2SAT 98
[2025-07-05] MEDS: MULTIVIT/MIN/PREN/FOL AC/IRON TABLET 1 TAB PO (10:50)
--- NOTE | 2025-07-05 15:29 | P.PNOB_ITS ---
OB - PN: Subj Subjective Date/time seen: 07/05/25 15:29 Interval history: pp day 2 doing well discharge home this evening OB - PN: Obj Data Labs 07/04/25 03:26 OB - PN A/P Plan day: 2 Plan: routine care and discharge home Time Spent With Patient Time: Total time spent is greater than 50% in coordination of care (as documented) at patient's floor/unit and/or counseling patient: Exam 2 Const: General: cooperative and healthy appearing
[2025-07-07 12:35] VITALS: BP 110/76; PULSE 65; RESP 18; TEMP 36.7; O2SAT 98
== END 2025-07-05 17:27 | disposition home or self-care (01) | DRG 560 ==
LOC: ANHOB2 07-04 06:34 → ANHLDR 07-09 12:00
PROVIDERS: Advanced Practice Midwife; Admitting Provider Obstetrics & Gynecology; PCP Physician Assistant Medical; Visit Provider Obstetrics & Gynecology
DX: O36.5930 Maternal care for other known or suspected poor fetal growth, third trimester, not applicable or unspecified (principal); Z37.0 Single live birth; Z3A.38 38 weeks gestation of pregnancy; O69.81X0 Labor and delivery complicated by cord around neck, without compression, not applicable or unspecified; O36.8330 Maternal care for abnormalities of the fetal heart rate or rhythm, third trimester, not applicable or unspecified
CPT/HCPCS: 36415; 85014; 85018; 85025; 86593; 86703; 86850; 86880; 86900; 86901; A9270; G0432; J2590; J2795; J7030; J7120